=== PATIENT | female | born 1945 | race Caucasian/White ===

== ENCOUNTER 2020-11-11 07:40 | Outpatient (CLI) | payer MEDICARE, BC, SELFPAY ==
--- NOTE | ~2020-11-11 | MR_ITS ---
EXAMINATION: MR thoracic spine wo con DATE: 11/11/2020 09:13 INDICATION: Disease of spinal cord, unspecified. TECHNIQUE: Magnetic resonance imaging (MRI) of the thoracic spine was performed without intravenous c ontrast. Sagittal localizer T1-weighted FSE of the cervical spine was obtained. Thoracic spine sequen leon included sagittal T2-weighted FSE, sagittal T1-weighted FSE, sagittal STIR FSE, and axial T2-weig hted FSE. COMPARISON: Chest 2 views 10/22/2016 FINDINGS: Bone alignment is normal. Vertebral body heights are normal. There is a hemangioma in T9 ve rtebral body. There are endplate osteophytes at most levels. There is mildly decreased disc height at C5-C6, severely decreased disc height at T6-T7, mildly decreased disc height at T8-T9, moderately de creased disc height at T9-T10, and mildly decreased disc height at T10-T11 and T11-T12. At T7-T8, the re is a central protrusion with mild central canal stenosis. At T8-T9, there is a right central extru tomy with mild central canal stenosis. There is multilevel facet joint osteoarthritis, severe on the right at T5-T6. On the right, there is mild neural foraminal stenosis C5-C6, T7-T8, and T11-T12. The spinal cord signal intensity is normal. IMPRESSION: 1. Moderate thoracic spondylosis. Reviewed, dictated and finalized at location A.
--- NOTE | ~2020-11-11 | MR_ITS ---
EXAMINATION: MR brain/brain stem wo con DATE: 11/11/2020 09:12 INDICATION: Disease of spinal cord, unspecified. TECHNIQUE: Magnetic resonance imaging (MRI) of the brain and brainstem was performed without intraven ous contrast. Sequences included sagittal and axial T1-weighted FSE, axial diffusion-weighted FS EPI, axial T2*-weighted GRE, axial T2-weighted FLAIR Propeller, and axial T2-weighted Propeller. Apparent diffusion coefficient (ADC) maps were created. COMPARISON: None. FINDINGS: There is no intracranial hemorrhage, acute infarction, or abnormal intracranial mass lesion . There are scattered areas of nonspecific increased T2-weighted signal intensity in the cerebral whi te matter, which is within normal limits for the patient's age. The ventricles are normal in size. Th e paranasal sinuses are clear. There are likely changes of ocular lens replacement surgeries. The mas toid air cells are normal. . IMPRESSION: 1. Normal brain. Reviewed, dictated and finalized at location A. IMPRESSION: 1. Normal brain.
--- NOTE | ~2020-11-11 | MR_ITS ---
EXAMINATION: MR cervical spine wo con DATE: 11/11/2020 09:13 INDICATION: Disease of spinal cord, unspecified. TECHNIQUE: Magnetic resonance imaging (MRI) of the cervical spine was performed without intravenous c ontrast. Sequences included sagittal T2-weighted FSE, sagittal STIR FSE, sagittal T1-weighted FSE, ax ial MERGE, and axial T2-weighted FSE. COMPARISON: None FINDINGS: There is 2 mm retrolisthesis of C3 on C4. Vertebral body heights are normal. There is sever ant decreased disc height at C3-C4, mildly decreased disc height at C5-C6, and moderately decreased d isc height at C6-C7. The spinal cord signal intensity is normal. The following disc levels are specif ically discussed: C2-C3: The disc does not extend beyond the endplate margin. There is mild bilateral uncovertebral raj nt osteoarthritis. There is severe right and mild left facet joint osteoarthritis. There is mild bila teral neural foraminal stenosis. There is no central canal stenosis. C3-C4: The disc is bulging. There is severe bilateral uncovertebral joint osteoarthritis. There is mi ld bilateral facet joint osteoarthritis. There is moderate bilateral neural foraminal stenosis. There is moderate central canal stenosis with ventral and dorsal indentation of the spinal cord. C4-C5: The disc does not extend beyond the endplate margin. There is no uncovertebral joint osteoarth ritis. There is mild right facet joint osteoarthritis. There is ankylosis of right facet joint with m oderate hypertrophy. There is mild right neural foraminal stenosis. There is no central canal stenosi s. C5-C6: The disc is bulging. There is severe bilateral uncovertebral joint osteoarthritis. There is se carly right and moderate left facet joint osteoarthritis. There is mild right and moderate left neural foraminal stenosis. There is mild central canal stenosis with ventral indentation of the spinal cord . C6-C7: The disc is bulging. There is severe bilateral uncovertebral joint osteoarthritis. There is se carly bilateral facet joint osteoarthritis. There is mild right and moderate left neural foraminal rené nosis. There is mild central canal stenosis. C7-T1: The disc does not extend beyond the endplate margin. There is no uncovertebral joint osteoarth ritis. There is severe bilateral facet joint osteoarthritis. There is mild bilateral neural foraminal stenosis. There is no central canal stenosis. IMPRESSION: 1. Severe cervical spondylosis. Reviewed, dictated and finalized at location A.
== END 2020-11-11 07:41 | disposition home or self-care (01) ==
PROVIDERS: PCP Emergency Medicine; Visit Provider Psychiatry & Neurology Neurology
DX: G95.9 Disease of spinal cord, unspecified (principal); M47.814 Spondylosis without myelopathy or radiculopathy, thoracic region; M47.812 Spondylosis without myelopathy or radiculopathy, cervical region
CPT/HCPCS: 70551; 72141; 72146

== ENCOUNTER 2021-02-06 09:59 | Outpatient (CLI) | payer MEDICARE, BC, SELFPAY ==
--- NOTE | 2021-02-06 12:00 | NEURO_ITS ---
Impression: # Complains of gait dysfunction. # No evidence of neuropathy. # Needle/EMG revealed neurogenic changes in EDB bilaterally. # Clinical correlation recommended; Higher involvement needs to be ruled out. Nerve Conduction Studies Anti Sensory Summary Table Stim Site NR Peak (ms) P-T Amp (?V) Site1 Site2 Delta-P (ms) Dist (cm) Will (m/s) Left Sup Fibular Anti Sensory (Ant Lat Mall) 14 cm 3.5 6.8 14 cm Ant Lat Mall 3.5 16.0 46 Right Sup Fibular Anti Sensory (Ant Lat Mall) 14 cm 3.5 10.3 14 cm Ant Lat Mall 3.5 16.0 46 Left Sural Anti Sensory (Lat Mall) Calf 3.6 13.8 Calf Lat Mall 3.6 16.0 44 Right Sural Anti Sensory (Lat Mall) Calf 3.6 4.7 Calf Lat Mall 3.6 16.0 44 Motor Summary Table Stim Site NR Onset (ms) O-P Amp (mV) Site1 Site2 Delta-0 (ms) Dist (cm) Will (m/s) Left Peroneal Motor (Vastus Med) Ankle 4.3 0.8 Popit Ankle 7.3 35.0 48 Popit 11.6 0.4 Right Peroneal Motor (Vastus Med) Ankle 4.8 1.8 Popit Ankle 7.7 34.0 44 Popit 12.5 1.2 Left Tibial Motor (Abd Serrano Brev) Ankle 4.3 3.0 Knee Ankle 7.5 37.0 49 Knee 11.8 1.4 Right Tibial Motor (Abd Serrano Brev) Ankle 4.1 3.4 Knee Ankle 8.1 39.0 48 Knee 12.2 4.0 F Wave Studies NR F-Lat (ms) L-R F-Lat (ms) Left Peroneal (Mrkrs) (EDB) 51.18 0.82 Right Peroneal (Mrkrs) (EDB) 50.36 0.82 Left Tibial (Mrkrs) (Abd Hallucis) 50.74 0.24 Right Tibial (Mrkrs) (Abd Hallucis) 50.98 0.24 EMG Side Muscle Nerve Root Ins Act Fibs Amp Dur Recrt Comment Right AntTibialis Dp Br Fibular L4-5 Nml Nml Nml Nml Nml Right Gastroc Tibial S1-2 Nml Nml Nml Nml Nml Right Fibularis Long Sup Br Fibular L5-S1 Nml Nml Nml Nml Nml Right Flex Dig Long Tibial L5-S2 Nml Nml Nml Nml Nml Right Ext Dig Brev Dp Br Fibular L5, S1 Nml Nml Nml >12ms Reduced Left AntTibialis Dp Br Fibular L4-5 Nml Nml Nml Nml Nml Left Gastroc Tibial S1-2 Nml Nml Nml Nml Nml Left Fibularis Long Sup Br Fibular L5-S1 Nml Nml Nml Nml Nml Left Flex Dig Long Tibial L5-S2 Nml Nml Nml Nml Nml Left Ext Dig Brev Dp Br Fibular L5, S1 Nml Nml Nml >12ms Reduced MTDD
== END 2021-02-06 10:00 | disposition home or self-care (01) ==
LOC: ANHNEURO 10:00
PROVIDERS: PCP Emergency Medicine; Visit Provider Psychiatry & Neurology Neurology
DX: R26.9 Unspecified abnormalities of gait and mobility (principal)
CPT/HCPCS: 95886; 95910; 95911

== ENCOUNTER 2021-07-30 13:11 | Outpatient (CLI) | payer MEDICARE, BC, SELFPAY ==
--- NOTE | ~2021-07-30 | MR_ITS ---
EXAMINATION: MR lumbar spine wo con DATE: 07/30/2021 13:50 INDICATION: Spinal stenosis, lumbar region without neurogenic location. TECHNIQUE: Magnetic resonance imaging (MRI) of the lumbar spine was performed without intravenous con trast. Sequences included sagittal T2-weighted FSE, sagittal T2-weighted FS FSE, sagittal T1-weighted FSE, and axial T2-weighted FSE. COMPARISON: None FINDINGS: There is 6 degrees levocurvature of lumbar spine. There is 4 mm anterolisthesis of L3 on L4 . There are hemangiomas in T9 and T12 vertebral bodies. Vertebral body heights are normal. There is m oderately decreased disc height at L1-L2, severely decreased disc height at L2-L3, L3-L4, and L4-L5, and mildly decreased disc height at L5-S1. The distal spinal cord signal intensity is normal. The con us medullaris is at L1-L2. 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 The following disc levels are specifically discussed: L1-L2: The disc is bulging and has an annular fissure. There is mild bilateral facet joint osteoarthr itis. There is mild bilateral neural foraminal stenosis. There is mild central canal stenosis. L2-L3: The disc is bulging and has an annular fissure. There is severe bilateral facet joint osteoart hritis. There is mild bilateral neural foraminal stenosis. There is mild central canal stenosis. L3-L4: The disc is bulging and has an annular fissure. There is severe bilateral facet joint osteoart hritis. There is mild bilateral neural foraminal stenosis. There is mild central canal stenosis. L4-L5: The disc is bulging and has an annular fissure. There is severe bilateral facet joint osteoart hritis. There is mild bilateral neural foraminal stenosis. There is mild central canal stenosis. L5-S1: The disc does not extend beyond the endplate margin. There is severe bilateral facet joint ost eoarthritis. There is mild bilateral neural foraminal stenosis. There is no central canal stenosis. IMPRESSION: 1. Severe lumbar spondylosis. Reviewed, dictated and finalized at location A.
== END 2021-07-30 13:12 | disposition home or self-care (01) ==
LOC: ANHIMG 13:14
PROVIDERS: PCP Emergency Medicine; Visit Provider Psychiatry & Neurology Neurology
DX: M48.061 Spinal stenosis, lumbar region without neurogenic claudication (principal); M47.896 Other spondylosis, lumbar region
CPT/HCPCS: 72148

== ENCOUNTER 2023-11-26 09:27 | Outpatient (CLI) | payer MEDICARE, BC, SELFPAY ==
--- NOTE | ~2023-11-26 | MR_ITS ---
MR cervical spine wo con Ordering provider: Ran Hopson MD History: 77 years Female with . R26.9 - Unspecified abnormalities of gait and mobility . Comparison: None. Technique: MRI cervical spine without contrast. FINDINGS: CERVICAL SPINAL CORD/CRANIAL CERVICAL JUNCTION: Normal in signal and caliber. CERVICAL VERTEBRAL BODIES: Normal height and alignment. Normal marrow signal. DISK SPACES: Narrowing of the disc C3-C4, C4-C5, C5-C6 and C6-C7. Fusion in the right facet joint dis ease At the level of C4-C5 C2-C3: No stenosis. C3-C4: Severe spinal canal stenosis secondary to broad based disc bulge. Narrowing of the foramina w ith root compression C4-C5: No stenosis. C5-C6: Mild spinal canal stenosis secondary to broad based disc bulge. Bilateral narrowing of the fo ramina with root compression. C6-C7: No stenosis. Diffuse disc bulge narrowing of the left intervertebral foramen with root william tomy C7-T1: No stenosis. VISUALIZED PARASPINOUS SOFT TISSUES: Normal. IMPRESSION: 1. No acute osseous abnormality. 2. Multilevel degenerative disc disease with variable degrees of spinal canal stenosis, intervertebr al foraminal narrowing and the root compression. Reviewed, dictated and finalized at location A. IMPRESSION: 1. No acute osseous abnormality. 2. Multilevel degenerative disc disease with variable degrees of spinal canal stenosis, intervertebral foraminal narrowing and the root compression.
== END 2023-11-26 09:28 | disposition home or self-care (01) ==
LOC: ANHIMG 09:28
PROVIDERS: PCP Family Medicine; Visit Provider Orthopaedic Surgery
DX: R26.9 Unspecified abnormalities of gait and mobility (principal); M50.30 Other cervical disc degeneration, unspecified cervical region
CPT/HCPCS: 72141

== ENCOUNTER 2024-03-05 09:40 | Outpatient (CLI) | payer MEDICARE, BC, SELFPAY ==
--- NOTE | ~2024-03-05 | MR_ITS ---
MRI of the lumbar spine Clinical History: Spinal stenosis Technique: Axial T2-weighted images, and sagittal T1-weighted, T2-weighted, and T2 fat-sat images wer e acquired. Findings: There is 4 mm retrolisthesis of L1 over L2. There is minimal grade 1 anterolisthesis of L3 over L4. No suspicious bone marrow signal abnormality seen. No fracture seen. At L1-L2, there is advanced degenerative disc narrowing, with type I Modic changes about the disc spa ce. There is disc bulge and facet arthropathy resulting in moderate to advanced spinal canal stenosis focally at this level. There is severe bilateral neural foraminal narrowing. At L2-L3, there is advanced degenerative disc narrowing with severe facet arthropathy. There is minim al disc bulge. There is minimal central canal stenosis. There is severe right neural foraminal narrow ing, and moderate to advanced left neural foraminal narrowing. At L3-L4, there is severe degenerative disc narrowing. There is mild diffuse disc bulge with severe f acet arthropathy. There is mild central canal stenosis. There is mild to moderate right neural forami nal narrowing. There is minimal left neural foraminal narrowing. At L4-L5, there is severe degenerative disc narrowing. There is mild disc bulge with severe facet art hropathy. No central canal stenosis. There is severe right neural foraminal narrowing, and moderate t o advanced left neural foraminal narrowing. At L5-S1, there is minimal disc bulge with severe facet arthropathy. No central canal stenosis. There is severe left neural foraminal narrowing. Right neural foramen preserved. Paravertebral soft tissues are unremarkable. Impression: Severe degenerative spondylosis, as detailed above. Reviewed, dictated and finalized at location . Impression: Severe degenerative spondylosis, as detailed above.
== END 2024-03-05 09:41 | disposition home or self-care (01) ==
PROVIDERS: PCP Family Medicine; Visit Provider Neurological Surgery
DX: M48.061 Spinal stenosis, lumbar region without neurogenic claudication (principal); M47.896 Other spondylosis, lumbar region
CPT/HCPCS: 72148

== ENCOUNTER 2024-04-09 10:24 | Outpatient (CLI) | payer MEDICARE, BC, SELFPAY ==
--- NOTE | 2024-04-09 10:30 | ECG_ITS ---
Test Date: 2024-04-09 10:56:04 Measurements Intervals [place] Rate: 59 P: 6 [place]: 176 QRS: -5 QRSD: 82 T: 12 QT: 362 QTc: 360 Interpretive Statements SINUS BRADYCARDIA LOW QRS VOLTAGE IN PRECORDIAL LEADS [QRS DEFLECTION < 1.0 mV IN CHEST LEADS] POSSIBLE ANTERIOR MYOCARDIAL INFARCTION [30 ms Q WAVE IN V3/V4, OR R < 0.2 mV IN V4], PROBABLY OLD No previous ECG available for comparison Electronically Signed On 04-09-2024 12:58:07 SENIOR PRODUCT DEVELOPMENT MANAGER by Melanie Fink M.D.
[2024-04-09 11:56] LABS: Hemoglobin 10.8 g/dL (12.0-15.0); Mean Corpuscular Hemoglobin 32.1 pg (26-34); Mean Corpuscular Volume 107.1 fl (80-100); Mean Platelet Volume 10.7 fl (7.4-10.4); Platelet Count Result 236 k/mm3 (150-375); Red Blood Count 3.36 M/mm3 (4.2-5.4); Red Cell Distribution Width 13.1 % (11.5-14.5); White Blood Count 6.2 K/mm3 (4.5-10.0)
[2024-04-09 12:11] LABS: Add Urine Microscopic? YES; Appearance Urine Turbid (Clear); Bacteria Urine None Seen /hpf; Bilirubin Urine 1+ (Negative); Blood Urine Negative (Negative); Calcium Oxalate Crystals Urine Present /hpf; Color Urine Dark Yellow (Yellow); Glucose Urine UA Negative (Negative); Ketones Urine Trace mg/dL (Negative); Leukocyte Esterase Ur 2+ LEU/UL (Negative); Need Manual Microscopic Reviewed; Nitrate Urine Negative (Negative); Protein Urine Trace mg/dL (Negative); Specific Grav Ur 1.037 (1.001-1.035); Squamous Epithelial Cell Urine Moderate /hpf (Few); WBC Urine >100 /hpf (0-3)
[2024-04-09 12:15] LABS: Anion Gap 2 mmol/L (4-12); Blood Urea Nitrogen 20 mg/dL (7-17); Calcium 10.1 mg/dL (8.4-10.2); Carbon Dioxide 32 mmol/L (22-30); Chloride 106 mmol/L (98-107); Estimated Glomerular Filt Rate 43; Glucose 89 mg/dL (65-110); Potassium 4.6 mmol/L (3.4-5.0); Sodium 140 mmol/L (137-145)
[2024-04-09 12:25] LABS: Prothrombin Time 13.9 Seconds (11.1-14.7)
[2024-04-09 12:26] LABS: Partial Thromboplastin Time 25.9 Seconds (22.3-36.8)
== END 2024-04-09 10:25 | disposition home or self-care (01) ==
PROVIDERS: PCP Family Medicine; Visit Provider Neurological Surgery
DX: M48.02 Spinal stenosis, cervical region (principal); I10 Essential (primary) hypertension; Z01.818 Encounter for other preprocedural examination
CPT/HCPCS: 36415; 80048; 81001; 85027; 85610; 85730; 86850; 86900; 86901; 87086; 93005

== ENCOUNTER 2024-08-02 09:00 | Outpatient (CLI) | payer MEDICARE, BC, SELFPAY ==
--- OUTSIDE RECORDS SUMMARY | 2024-08-02 09:45 | XMS_ITS | Referral Summary ---
Author Organization [facility] [place] [facility] Address [address] [place] [address] Care Team Providers Care Stitch Separator Name Role Phone Pablo Vaughn MD Primary Care Provider + Allergies Active Allergy Reactions Criticality Noted Date Comments Codeine Lisinopril Cough Low 10/14/2012 Sulfanilamide Medications multivitamin tablet tablet take 1 tablet by oral route every day with food 0 2 Active calcium carbonate-vitam in D3 (CALCIUM 600 + D,3,) 1500 mg (600 mg elemental) -400 units per tablet take one by oral route twice every day [address] (NexIUM) 40 mg capsule take 1 capsule (40MG) by oral route 2 times every day 0 2 Active ascorbic acid (vitamin C with lora hips) 500 mg tablet take one by oral route one time every day 0 2 Active pyridoxine (vitamin B-6) 100 mg tablet take one by oral route one time every day 0 2 Active escitalopram (LEXAPRO) 10 mg tablet take 1 tablet (10MG) by oral route every day 0 2 Active traMADol (ULTRAM) 50 mg tablet take 1 tablet (50MG) by oral route every 4 hours as needed 0 3 Active cholecalciferol (VITAMIN D3) 2,000 unit capsule take 1 a day 0 0 5 Active traZODone (DESYREL) 50 mg tablet take 1 tablet by oral route every day at bedtime 0 0 5 Active glucosamine-cho ndroitin (OSTEO BI-FLEX) 250-200 mg tablet take BID 0 0 5 Active omeprazole (PriLOSEC) 20 mg capsule take 1 capsule by oral route BID 0 0 5 Active levothyroxine (SYNTHROID) 50 mcg tablet TAKE 1 TABLET EVERY FRIDAY 10 3 3 Active Additional Information Patient not taking.Reported on 02/25/2020 levothyroxine (SYNTHROID) 88 mcg tablet TAKE 1 TABLET DAILY FRIDAY THROUGH FRIDAY. 90 2 0 Active primidone (MYSOLINE) 50 mg tablet Take 2 tablets (100 mg total) by mouth 2 (two) times a day 120 tablet 1 0 Active cranberry fruit extract (cranberry extract) 250 mg capsule Take 2 tablets by mouth 8 Active apixaban (ELIQUIS) 5 mg tablet Take 5 mg by mouth 0 Active biotin 5 mg tablet Take 1 tablet by mouth 2 (two) times a day 8 Active buPROPion (WELLBUTRIN) 75 mg tablet Take 75 mg by mouth 0 Active cyanocobalamin (Vitamin B-12) 1,000 mcg tablet Take 1 tablet by mouth daily 8 Active cycloSPORINE (Restasis) 0.05 % ophthalmic emulsion Administer 1 drop into affected eye(s) 7 Active Active Problems Problem Noted Date Diagnosed Date Hypothyroidism 08/03/2013 Overview (08/08/2016): HYPOTHYROIDISM NOS Vitamin D deficiency 05/12/2012 Overview (08/08/2016): Vitamin d deficiency Social History Tobacco Use Types Packs/Day Years Used Date Smoking Tobacco: Former Alcohol Use Standard Drinks/Week Comments No 0 (1 standard drink = 0.6 oz pur e alcohol) Comments Unknown Sex and Gender Information Value Date Recorded Sex Assigned at Not on file Legal Sex Female 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[employer] Gender Identity Not on file Sexual Orientation Not on file Last Filed Vital Signs Vital Sign Reading Time Taken Comments Blood Pressure 161/80 02/25/2020 9:24 AM CDT Pulse 69 02/25/2020 9:24 AM CDT Temperature 35.9 C (96.6 F) 02/25/2020 9:24 AM CDT Respiratory Rate - - Oxygen Saturation - - Inhaled Oxygen Concentration - - Weight 69.1 kg (152 lb 6.4 oz) 02/25/2020 9:24 A M CDT Height 152.4 cm (5') 02/25/2020 9:24 AM CDT Body Mass Index 29.76 02/25/2020 9:24 AM CDT Plan of Treatment Not on file Insurance [place] [employer] [place] [employer] [place] Care Teams Stitch Separator Relationship Specialty Start Date End Date Pablo Vaughn MD PCP - General 08/09/14
--- OUTSIDE RECORDS SUMMARY | 2024-08-02 09:45 | XMS_ITS | Continuity of Care Document ---
Author Organization [facility] Address [address] [place] [address] Phone Care Team Providers Care Manager Workers Compensation Name Role Phone Migel Franklin MD Unavailable Unavailable Advance Directives Directive Yes / No Effective Date File Name No Information Encounters Encounter Description Practice Location Reason(s) For Visit Diagnoses Date Provider Providers Copied on Encounter [facility], [address], [place], [place], [id number], tel:[phone] [facility] No Information Rigoberto Lainez. [address] , [place], [place], [address], [place]. tel:[phone] Referring Provider: Yohannes Rivero DO, [address], [place], [address]. tel:[phone] Family History Family Member Type Diagnosis Age At Onset No Information Payers Payer name Insurance type Covered alliance party ID Authoriza tion(s) MEDICARE [id number] [employer] 3 CI [id number] 2 Social History Type Description Quantity Date [...]
--- OUTSIDE RECORDS SUMMARY | 2024-08-02 09:45 | XMS_ITS | Clinical Summary ---
Author Organization [facility] Address [address], [facility] [address] [place] [address] Phone Care Team Providers Care Web Designer Name Role Phone Pablo Vaughn MD Primary Care Provider [phone] Gerhard Colin MD Unavailable [phone] Allergies Active Allergy Reactions Criticality Noted Date Comments Codeine Itching,Nausea Low 01/08/2018 Lisinopril Other (see Comments) Low 10/14/2012 Sulfa Antibiotics Other (see Comments) 05/11/19 21 Sulfacetamide Itching Low 01/16/2018 Sulfanilamide Other (see Comments) 02/24/2020 Medications Biotin 5000 MCG TabletIndications :Single subsegmental pulmonary embolism without acute cor pulmonale (HCC),Vitamin deficiency,Anemia , unspecified type,Hypercoagula ble state (HCC) Take 1 Tab by mouth. 8 Active calcium citrate-vitamin D (CITRACAL+D) 315-200 MG-UNIT TabletIndications :Single subsegmental pulmonary embolism without acute cor pulmonale (HCC),Vitamin deficiency,Anemia , unspecified type,Hypercoagula ble state (HCC) Take 1 Tab by mouth. Active Cholecalciferol (Vitamin D) 2000 UNIT TabletIndications :Single subsegmental pulmonary embolism without acute cor pulmonale (HCC),Vitamin deficiency,Anemia , unspecified type,Hypercoagula ble state (HCC) Take 1 Tab by mouth. 8 Active Cranberry Extract 250 MG TabletIndications :Single subsegmental pulmonary embolism without acute cor pulmonale (HCC),Vitamin deficiency,Anemia , unspecified type,Hypercoagula ble state (HCC) Take 2 Tabs by mouth. 8 Active cycloSPORINE (RESTASIS) 0.05 % EmulsionIndicatio ns:Single subsegmental pulmonary embolism without acute cor pulmonale (HCC),Vitamin deficiency,Anemia , unspecified type,Hypercoagula ble state (HCC) Place 1 Drop in affected eye(s). 7 Active ascorbic acid (ASCORBIC ACID) 500 MG TabletIndications :Single subsegmental pulmonary embolism without acute cor pulmonale (HCC),Vitamin deficiency,Anemia , unspecified type,Hypercoagula ble state (HCC) Take 500 mg by mouth. 2 Active ibuprofen (MOTRIN) 600 MG TabletIndications :Single subsegmental pulmonary embolism without acute cor pulmonale (HCC),Vitamin deficiency,Anemia , unspecified type,Hypercoagula ble state (HCC) TK 1 T PO EVERY 8 HOURS NEEDED FOR PAIN. 0 Active metoprolol tartrate (LOPRESSOR) 25 MG TabletIndications :Single subsegmental pulmonary embolism without acute cor pulmonale (HCC),Vitamin deficiency,Anemia , unspecified type,Hypercoagula ble state (HCC) Take 12.5 mg by mouth. 0 Active Multiple Vitamins TabletIndications :Single subsegmental pulmonary embolism without acute cor pulmonale (HCC),Vitamin deficiency,Anemia , unspecified type,Hypercoagula ble state (HCC) Take 1 Tab by mouth. 8 Active omeprazole (PriLOSEC) 20 MG CAPSULE DELAYED RELEASEIndication s:Single subsegmental pulmonary embolism without acute cor pulmonale (HCC),Vitamin deficiency,Anemia , unspecified type,Hypercoagula ble state (HCC) Take 20 mg by mouth. 5 Active primidone (MYSOLINE) 50 MG TabletIndications :Single subsegmental pulmonary embolism without acute cor pulmonale (HCC),Vitamin deficiency,Anemia , unspecified type,Hypercoagula ble state (HCC) Take 2 Tablets by mouth 2 times daily. 8 Active traMADol (ULTRAM) 50 MG Tablet tramadol 50 mg tablet Take 1 tablet every 6 hours by oral route. 0 Active Synthroid 100 MCG Tablet 1 Active buPROPion (WELLBUTRIN) 150 MG XL tablet 1 Active celecoxib (CeleBREX) 200 MG Capsule 1 Active escitalopram (LEXAPRO) 20 MG Tablet Take 1 Tablet by mouth daily. 1 Active traZODone (DESYREL) 100 MG Tablet TAKE 1 AND 1/2 TABLETS BY MOUTH NIGHTLY AT BEDTIME 1 Active Active Problems Problem Noted Date Diagnosed Date Joint replaced by other means 05/30/2021 Osteoarthritis of knee 05/30/2021 Idiopathic peripheral neuropathy 10/20/2020 Primary localized osteoarthritis of pelvic regio n and thigh 07/27/2020 History of total hip arthroplasty, left 07/28/19 21 Acquired trigger finger 07/27/2020 Carpal tunnel syndrome 07/27/2020 Cervical spondylosis without myelopathy 07/28/19 21 Degeneration of cervical intervertebral disc Iron deficiency anemia 03/16/2020 Dependent edema 01/29/2020 History of pulmonary embolism 12/20/2019 Overview (05/30/2021): Occurring while hospitalized for small bowel obstruction. Completed 3 months of anticoagulation. Negative hypercoagulability work-up. Primary insomnia 11/03/2019 History of gastric bypass 06/19/2018 Essential tremor 02/13/2017 Overview (05/30/2021): Transitioned From: Resting tremor Last Assessment & Plan: Stable, continues on primidone as prescribed by Dr. Ta, with regular follow- up with him. Improved control of symptoms. No treatment change. Gastroesophageal reflux disease with esophagitis 11/07/2015 Overview (05/30/2021): Last Assessment & Plan: Well-controlled on current dosing of omeprazole. No treatment change. Check vitamin D and B12/folate levels with next blood draw. Pseudophakia of both eyes 05/05/2014 Acquired hypothyroidism 06/24/2012 Overview (05/30/2021): Last Assessment & Plan: Patient with excess intake of levothyroxine, due to a misunderstanding of her dosing. Reevaluate with repeat TSH at this time. Patient instructed to take 50 mcg of thyroxine on Sundays and Wednesdays without additional medication. She is to take 88 mcg all other days. Patient voiced understanding and agreement with plan. HYPOTHYROIDISM NOS Immunizations Immunization Administration Dates Next Due Covid-19, Mrna, Lnp-s, Pf, 3 0 Mcg/0.3 Ml Dose ([facility]) 07/22/2020,07/01/2020 Influenza Vaccine 01/17/2020 Influenza Vaccine,unspecifie d Formulation 01/17/2020 Influenza, High-dose, Quadrivalent 01/26,01/21/2018,02/08/2017,2015,01/23/2015,03/01/2013 Influenza, Quadrivalent, Adjuvanted 01/17/2020,1 Influenza, Seasonal, Injecta ble, Undefined 01/25/2014 Influenza, Trivalent, Adjuvanted, PF 02/02/2019 Influenza, high-dose, trivalent, PF 01/03,02/08/2017,02/11/2016,2014,03/01/2013 Pneumococcal Vaccine - 13 Valent 04/22/2018 Pneumococcal Vaccine Adult - 23 Valent 02/08/2017 Zoster Vaccine, live 04/24/2012 Family History Medical History Relation Name Comments Chronic Obstructive Pulmonary Disease Father Hypertension Mother Relation Name Status Comments Father Mother Social History Tobacco Use Types Packs/Day Years Used Date Smoking Tobacco: Former Smokeless Tobacco: Never Alcohol Use Standard Drinks/Week Comments Not Currently 0 (1 standard drink = 0.6 oz pur e alcohol) PHQ-2 Answer Date Recorded Total Score - Questions 1-9 1 11/03 Sexually Active Control Partners Comments Not Currently Comments No Sex and Gender Information Value Date Recorded Sex Assigned at Not on file Legal Sex Female 7:59 AM CDT Gender Identity Not on file Sexual Orientation Not on file Last Filed Vital Signs Vital Sign Reading Time Taken Comments Blood Pressure 150/82 11/30/2020 9:36 AM CDT Pulse 63 11/30/2020 9:36 AM CDT Temperature 36.6 C (97.8 F) 11/30/2020 9:36 AM CDT Respiratory Rate 18 11/30/2020 9:36 AM CDT Oxygen Saturation 96% 11/30/2020 9:36 AM CDT Inhaled Oxygen Concentration - - Weight 71.5 kg (157 lb 9.6 oz) 11/30/2020 9:36 A M CDT Height 152.4 cm (5') 11/30/2020 9:36 AM CDT Body Mass Index 30.78 11/30/2020 9:36 AM CDT Plan of Treatment Health Maintenance Due Date Last Done Comments Hepatitis C Virus (HCV) Screening 1945 TdaP Immunization 1945 Zoster Immunization (2 of 3) 06/19/2012 04/24/2012 Respiratory Syncytial Virus (RSV) Immunization (Adult) (1 - 1-dose 75+ series) 2020 Influenza Immunization (#1) 01/04/202401/04, 01/17/2020, 01/17/2020, Additional history exists SARS-COV-2 Immunization ( season) 2024 07/22/2020, 07/01/2020 Pneumococcal Immunization (50+ years) Completed 04/22/2018, 02/08/2017 Pneumococcal Immunization Combined Discontinued 04/22/2018, 02/08/2017 Hepatitis B Immunization Aged Out No longer eligible based on patient's age to complete this topic Meningococcal Immunization (ACWY) Aged Out No longer eligible based on patient's age to complete this topic Rotavirus Immunization Aged Out No lo nger eligible based on patient's age to complete this topic Insurance MEDICARE [facility] Care Teams Web Designer Relationship Specialty [place] [id number] [address] PCP - General General Surgery 02/01/20 Gerhard Colin MD [address] [place] [phone] Consulting Physician Oncology 04/12/20
--- OUTSIDE RECORDS SUMMARY | 2024-08-02 09:45 | XMS_ITS | Clinical Summary ---
Author Organization [facility] Address [address] [place] [address] Care Team Providers Care Supervisor Cytogenetic Laboratory Name Role Phone Pablo Vaughn MD Primary [...] deficiency 05/12/2012 Overview (08/08/2016): Vitamin d deficiency Surgical History Surgery Date Site/Laterality Comments HIP ARTHROPLASTY Hip replacement Medical History Medical History Date Comments Hx Other Medical Gastric bypass surgery Inflammatory disorder of musculoskeletal system Inflammatory arthritis Hx Other Medical fx wrist right 2010 Anemia anemia Family History Medical History Relation Name Comments Cancer Other 1 Family history of malignant neoplasm - (Added by TW Conv) Diabetes Other 1 Family history of diabetes mellitus - (Added by TW Conv) Heart disease Other 1 Family history of cardiac disorder - (Added by TW Conv) Stroke Other 1 Family history of cerebrovascular accident (CVA) - (Added by TW Conv) Thyroid disease Other 1 Family histo ry of Thyroid disorder; Thyroid disease Other 2 Family histo ry of Thyroid disease; Relation Name Status Comments Other 1 Other 2 Social History Tobacco Use Types Packs/Day Years Used Date Smoking Tobacco: Former Alcohol Use Standard Drinks/Week Comments No 0 (1 standard drink = 0.6 oz pur e alcohol) Comments Unknown Sex and Gender Information Value Date Recorded Sex Assigned at Not on file Legal Sex Female 1:10 AM SOFTBALL WINDER Gender Identity Not on file Sexual Orientation Not on file Obstetrics History Last Filed Vital Signs Vital Sign Reading [...] of Treatment Not on file Insurance MEDICARE [facility] [employer] [place] Care Teams Supervisor Cytogenetic Laboratory Relationship Specialty Start Date End Date Pablo Vaughn MD PCP - General 08/09/14
[2024-08-02 10:45] LABS: Hematocrit 38.7 % (37.0-47.0); Hemoglobin 11.9 g/dL (12.0-15.0); Mean Corpuscular HGB Conc 30.7 g/dl (32-36); Mean Corpuscular Hemoglobin 32.6 pg (26-34); Mean Platelet Volume 10.3 fl (7.4-10.4); Platelet Count Result 188 k/mm3 (150-375); Red Blood Count 3.65 M/mm3 (4.2-5.4); Red Cell Distribution Width 11.8 % (11.5-14.5)
[2024-08-02 10:49] LABS: Add Urine Microscopic? YES; Appearance Urine Clear (Clear); Bacteria Urine None Seen /hpf; Bilirubin Urine Negative (Negative); Blood Urine Negative (Negative); Color Urine Yellow (Yellow); Glucose Urine UA Negative (Negative); Ketones Urine Negative (Negative); Leukocyte Esterase Ur Trace LEU/UL (Negative); Nitrate Urine Negative (Negative); Non Pathogenic Casts 0-2; Protein Urine Negative (Negative); RBC Urine 0-2 /hpf (0-2); Specific Grav Ur 1.018 (1.001-1.035); Squamous Epithelial Cell Urine None Seen /hpf (Few); Urobilinogen Urine 0.2 mg/dL (<2.0)
[2024-08-02 11:03] LABS: Anion Gap 6 mmol/L (4-12); Blood Urea Nitrogen 20 mg/dL (7-17); Calcium 10.3 mg/dL (8.4-10.2); Carbon Dioxide 30 mmol/L (22-30); Chloride 105 mmol/L (98-107); Estimated Glomerular Filt Rate 50; Glucose 92 mg/dL (65-110); Potassium 4.7 mmol/L (3.4-5.0); Sodium 141 mmol/L (137-145)
[2024-08-02 11:04] LABS: Prothrombin Time 13.5 Seconds (11.1-14.7)
[2024-08-02 11:05] LABS: Partial Thromboplastin Time 25.7 Seconds (22.3-36.8)
== END 2024-08-02 09:01 | disposition home or self-care (01) ==
LOC: ANHSURGERY 09:07
PROVIDERS: PCP Family Medicine; Visit Provider Neurological Surgery
DX: M48.02 Spinal stenosis, cervical region (principal); Z01.818 Encounter for other preprocedural examination
CPT/HCPCS: 36415; 80048; 81001; 85027; 85610; 85730; 86850; 86900; 86901; 87086

== ENCOUNTER 2024-08-12 01:45 | Day surgery (SDC) | payer MEDICARE, BC, SELFPAY ==
[2024-08-02 09:32] VITALS: BP 146/77; PULSE 55; RESP 16; TEMP 36.6; O2SAT 98; BMI 33.3
--- NOTE | 2024-08-02 09:53 | PC.NURSE ---
Report to the Outpatient Waiting Room, entrance under the green pavilion located off [facility], at time ___9:00AM____ on date ___08/12/24____. Planned Procedure Time: ___11:00AM .? Time changes happen often and if your time is changed the preop area will call you the afternoon before. - You and your visitor will be asked to self-screen and do not enter if you have any COVID symptoms. Please call surgeon if you need to reschedule. - A mask is optional within the hospital at this time. Patients may have clear liquids (water, carbonated beverages, clear teas, apple juice) until 3 hours prior to surgery (8:00AM) with a maximum of 20 ounces. - No food from midnight until time of surgery and no smoking, or chewing tobacco (or any form of nicotine). No chewing gum, candy or mints. Take only the following medications with a SIP of water on the morning of surgery: __BUPROPION, ESCITALOPRAM, LEVOTHYROXINE, PROPRANOLOL. TRAMADOL NEEDED FOR PAIN. DO NOT STOP ANY OF YOUR OTHER PRESCRIPTION MEDICATIONS PRIOR TO SURGERY EXCEPT THE FOLLOWING Hold all vitamins and supplements for 3 days per anesthesiologist.- LAST DOSE 08/08/24 Please no make-up, nail khmer, hairspray, perfume, deodorant, or body powder the day of surgery.? No jewelry (including any body piercings) or valuables the day of surgery, leave them at home.? Please take a shower or bath the night before, or the morning of, surgery with an antibacterial soap.? Wear comfortable, loose fitting clothing.? - Jewelry must be removed prior to entering the operating room.? Rings and piercings that are not removed may be cut off. - The hospital will not accept responsibility for valuables.? - Please leave all valuables, including medications, at home the day of surgery. If you are going home after surgery, a licensed driver license technician must drive you home.? - NO public transportation without another adult if you receive anesthesia. - We recommend that an adult stay with you for 24 hours following discharge. - We also recommend that you do not drive, make important decision, drink alcoholic beverages, or take any drugs that were not prescribed by your health care provider for at least 24 hours after your discharge time. Follow any additional instructions given to you from your surgeon. Telephone instructions given to ____PATIENT and asked if any additional questions and then verbalized understanding. Patient advised to call surgeon office or pre surgery nurse liaison [phone] if any additional questions.
[2024-08-12] VITALS (16 sets, daily range): BP systolic 115–145; BP diastolic 52–77; PULSE 57–76; RESP 11–23; TEMP 35.8–36.7; O2SAT 90–100; BMI 32.9
--- NOTE | ~2024-08-12 | CT_ITS ---
EXAMINATION: CT brain wo con DATE: 08/12/2024 15:40 INDICATION: Right-sided facial droop TECHNIQUE: Computed tomography (CT) of the head was performed without intravenous contrast. Sagittal and coronal reconstructions were performed. The mA was adjusted according to patient size. Iterative reconstruction technique was employed. The dose-length product was 681.00 mGy-cm. COMPARISON: Brain MR dated 11/11/2020 FINDINGS: No acute intracranial hemorrhage, acute infarction or abnormal extra axial fluid collection. There is mild scattered white matter hypoattenuation consistent with chronic small vessel ischemic disease. Ventricles are normal and symmetric. No mass/mass effect. Changes of bilateral intraocular lens repla cement. The orbits, paranasal sinuses and mastoid air cells are normal. IMPRESSION: 1. Normal aging brain. No acute intracranial process. Reviewed, dictated and finalized at location B.
--- NOTE | ~2024-08-12 | MR_ITS ---
EXAMINATION: MR brain/brain stem wo/w con DATE: 08/13/2024 13:15 INDICATION: Right facial droop TECHNIQUE: Magnetic resonance imaging (MRI) of the brain and brainstem was performed without and with 15 mL ProHance intravenous contrast. Sequences included sagittal and axial T1-weighted SE, axial dif fusion-weighted FS SE, axial 3D SWAN, axial T2-weighted FLAIR, and axial T2-weighted FSE. Postcontras t axial and coronal T1-weighted SE was obtained. Apparent diffusion coefficient (ADC) maps were creat ed. COMPARISON: Head CT and CT angiogram dated 08/12/2024 and brain MR dated 11/11/2020 FINDINGS: There are no areas of restricted diffusion to suggest acute infarction. No intracranial hemorrhage or abnormal intracranial mass lesion. There are scattered areas of nonspecific increased T2-weighted si gnal intensity in the cerebral white matter, predominantly involving the deep and periventricular whi te matter which is within normal limits for age. There are no intraparenchymal signal abnormalities s een on the other pulse sequences. The ventricles are symmetric and normal in size. There are no abnor mal extra-axial fluid collections. Flow voids are seen in the cerebral arteries on the T2-weighted se quences consistent with their expected patency. Changes of bilateral intraocular lens replacement. V isualized orbits and soft tissues are unremarkable. There are no areas of abnormal enhancement on the post contrast images. IMPRESSION: 1. Normal aging brain. No acute intracranial process. Reviewed, dictated and finalized at location A.
--- NOTE | ~2024-08-12 | CT_ITS ---
EXAMINATION: CTA BRAIN/CAROTID DATE: 08/12/2024 15:50 INDICATION: Right facial droop TECHNIQUE: Computed tomographic angiography (CTA) of the head and neck was performed with 100 mL Omni paque-350 intravenous contrast. Multiplanar reconstructions and maximum intensity projection 3D-recon structions of the carotid arteries and of the intracranial arteries were created by the technologist on a separate workstation. Automated exposure control and iterative reconstruction technique were emp loyed.The dose-length product was 929.54 mGy-cm. COMPARISON: None. FINDINGS: Carotid arteries: Visualized aortic arch and great vessels arising from the arch are normal in caliber with no evident atherosclerotic plaque or dissection. Left vertebral artery is dominant. There is 0% stenosis of the right and left carotid bulbs relative to normal distal artery lumen diameter (NASCET criteria). Mild dependent atelectasis in the visualized upper lungs. Tracheobronchial malacia with significant AP britt rowing of the trachea and mainstem bronchi. Intracranial arteries Left vertebral artery is dominant. There is no hemodynamically significant stenosis in the vertebral, basilar and internal carotid arteries. There are no aneurysms identified. Both A1 and P1 segments a re patent. Cerebral arterial arborization appears symmetric. No abnormally enhancing brain lesions. IMPRESSION: 1. 0% stenosis of the right and left carotid bulbs relative to normal distal artery lumen diameter (N ASCET criteria). 2. Unremarkable cerebral CT angiogram with no hemodynamically significant stenosis, aneurysm or throm bosis. Reviewed, dictated and finalized at location B. IMPRESSION: 1. 0% stenosis of the right and left carotid bulbs relative to normal distal ar varsha lumen diameter (NASCET criteria). 2. Unremarkable cerebral CT angiogram with no hemodynamically significant steno sis, aneurysm or thrombosis.
--- NOTE | ~2024-08-12 | XR_ITS ---
XR fluoroscopy no charge Indication: Cervical discectomy with fusion C3-4 TECHNIQUE: Fluoroscopy used during Cervical discectomy with fusion C3-4 performed by [Mati heck MD] on 08/12/2024. 5 seconds of fluoroscopy with one fluoroscopic images captured. FINDINGS: Correlate with procedure note. IMPRESSION: Fluoroscopy used during Cervical discectomy with fusion C3-4. Reviewed, dictated and finalized at location A.
--- OUTSIDE RECORDS SUMMARY | 2024-08-12 01:48 | XMS_ITS | Encounter Summary ---
Author Organization [facility] Address [facility] [place] [address] Care Team Providers Care Gopherman Name Role Phone Pablo aVughn MD Primary Care Provider [phone] Stanlye Mello MD Unavailable [phone] Gilbert Pablo MD Unavailable Zeyad Lozano MD Unavailable [phone] Pedro Barnhart MD Unavailable [phone] Eric Clark MD Primary Care Provider [phone] Encounter Details Date Type Department Care Team (Late st Contact Info) Description 11/29/[address] [facility] [address] [place], [place] [id number] Pedro Barnhart MD [address] [address] Social History Tobacco Use Types Packs/Day Years Used Date Smoking Tobacco: Former Cigarettes Q uit: 1980 Smokeless Tobacco: Never Alcohol Use Standard Drinks/Week Comments Yes 0 (1 standard drink = 0.6 oz pur e alcohol) little PHQ-2 Answer Date Recorded PHQ-2 Score 2 11/17/2019 Comments No Sex and Gender Information Value Date Recorded Sex Assigned at Female 03/25/2018 2:13 PM HAIR COLORIST Legal Sex Female 10:53 PM CDT Gender Identity Female 03/25/2018 2:13 PM HAIR COLORIST Sexual Orientation Straight 03/25/2018 2: 13 PM HAIR COLORIST Occupation Industry Job Start Date Job End Date Not on file Not on file Not on file Not on file COVID-19 Exposure Response Date Recorded In the last month, have you been in contact with someone who was confirmed or suspected to have Coronavirus / COVID-19? No / Unsure 11/29/2019 11:32 AM CDT documented as of this encounter Plan of Treatment Not on file documented as of this encounter Visit Diagnoses Not on filedocumented in this encounter Additional Health Concerns Infection Onset Date Last Indicated Resolved Time COVID-19 Rule Out 11/29/2019 11/29/2019 11/29/2019 4:09 PM CDT COVID-19 Rule Out 12/21/2019 12/21/2019 12/21/2019 11:45 AM CDT documented as of this encounter Care Teams Gopherman Relationship Specialty Start Date End Date Pablo Vaughn MD PCP - General INTERNAL MEDICINE 10/03/17 07/18/21 [place] [address] [place] [address] PCP - General FAMILY PRACTICE 07/19/21 Stanley Mello MD [facility]. [address] [address] [place] Engine Mechanic CARDIOVASCULAR DISEASE 10/03/17 Gilbert Pablo MD [address] [facility] [phone] [place] [address] Consulting Physician SURGERY 03/22/21 Zeyad Lozano MD [address] [address] Consulting Physician NEUROLOGY 03/22/21 Pedro Barnhart MD [address] [place] [address] Consulting Physician ORTHOPAEDIC SURGERY 03/22/21 documented as of this encounter
--- OUTSIDE RECORDS SUMMARY | 2024-08-12 01:48 | XMS_ITS | Continuity of Care Document ---
Author Organization [facility] Address [address] [place] [address] Phone Care Team Providers Care Envelope Addresser Name Role Phone Migel Franklin MD Unavailable Unavailable Advance Directives Directive Yes / No Effective Date File Name No Information Encounters Encounter Description Practice Location Reason(s) For Visit Diagnoses Date Provider Providers Copied on Encounter [facility], [address], [place], [place], [id number], tel:[phone] [facility] No Information Rigoberto Lainez. [address] , [place], [place], [address], [place]. tel:[phone] Referring Provider: Yohannes Rivero DO, [address], [place], [address]. tel:[phone] Family History Family Member Type Diagnosis Age At Onset No Information Payers Payer name Insurance type Covered constitution party ID Authoriza tion(s) MEDICARE [id number] [employer] 3 CI [id number] Social History Type Description Quantity Date [...]
--- OUTSIDE RECORDS SUMMARY | 2024-08-12 01:48 | XMS_ITS | Encounter Summary ---
Author Organization [facility] Address [address] [place] [address] Care Team Providers Care Photographic Platemaker Name Role Phone Pablo Vaughn MD Primary Care Provider + [phone] Stanley Mello MD Unavailable [phone] Gilbert Pablo MD Unavailable Zeyad Lozano MD Unavailable [phone] Pedro Barnhart MD Unavailable [phone] Eric Clark MD Primary Care Provider [phone] Encounter Details Date Type Department Care Team (Late st Contact Info) Description 01/06/2018 [facility] at [address] [address] Fede Turcios MA Social History Tobacco Use Types Packs/Day Years Used Date Smoking Tobacco: Former Alcohol Use Standard Drinks/Week Comments No 0 (1 standard drink = 0.6 oz pur e alcohol) Comments Unknown Sex and Gender Information Value Date Recorded Sex Assigned at Female 03/25/2018 2:13 PM VENEER TAPING MACHINE OFFBEARER Legal Sex Female 10:53 PM CDT Gender Identity Female 03/25/2018 2:13 PM VENEER TAPING MACHINE OFFBEARER Sexual Orientation Straight 03/25/2018 2: 13 PM VENEER TAPING MACHINE OFFBEARER Occupation Industry Job Start Date Job End Date Not on file Not on file Not on file Not on file documented as of this encounter Progress Notes * EMELIA Tijerina-MANDA - 01/06/2018 3:31 PM CDT Labs reviewed from a month ago. Will discuss at upcoming appt documented in this encounter Plan of Treatment Not on file documented as of this encounter Procedures Procedure Name Priority Date/Time Associated Diagnosis Comments CBC (OUTSIDE LAB) Routine 11/24/2017 COMPREHENSIVE METABOLIC PANEL Routine 11/24/2017 LIPID PANEL Routine 11/24/2017 THYROID STIM HORMONE TSH Routine 11/24/2017 documented in this encounter Results * LIPID PANEL (11/24/2017) CHOLESTEROL 189 HDL 71 TRIGLYCERIDES 107 NON HDL CHOLESTEROL 118 LDL (CALCULATED) 96.6 11/24/2017 [facility] Final Result * THYROID STIM HORMONE, TSH (11/24/2017) TSH 1.294 11/24/2017 us Doc [facility] Final Result * COMPREHENSIVE METABOLIC PANEL (11/24/2017) SODIUM S/P/B 139 POTASSIUM S/P/B 4.9 CO2 30.1 CHLORIDE S/P/B 104 GLUCOSE 101 mg/dL CALCIUM S/P/B 10.3 BUN 13 CREATININE S/P/B 0.94 0.5 - 1.0 EGFR AFR. AMER. 71 <=90 EGFR NON-AFR. AMER. 61 <=90 ALKALINE PHOSPHATASE S/P/B 71 ALT 19 AST 17 BILIRUBIN TOTAL S/P/B 0.2 ALBUMIN S/P/B 4.2 3.5 - 5.0 TOTAL PROTEIN S/P/B 7.1 11/24/2017 us Doc [facility] Final Result * CBC (OUTSIDE LAB) (11/24/2017) WBC 6.5 HGB 12.8 HCT 40.0 PLT 201 11/24/2017 us Doc [facility] LAB-OUTSIDE/ABSTRACTED Final Result documented in this encounter Visit Diagnoses Not on filedocumented in this encounter Additional Health Concerns Infection Onset Date Last Indicated Resolved Time COVID-19 Rule Out 11/29/2019 11/29/2019 11/29/2019 4:09 PM CDT COVID-19 Rule Out 12/21/2019 12/21/2019 12/21/2019 11:45 AM CDT documented as of this encounter Care Teams Photographic Platemaker Relationship Specialty Start Date End Date Pablo Vaughn MD PCP - General INTERNAL MEDICINE 10/03/17 07/18/21 [place] [address] [place] [address] PCP - General FAMILY PRACTICE 07/19/21 Stanley Mello MD [facility]. [address] [address] [place] Computer Applications Engineer CARDIOVASCULAR DISEASE 10/03/17 Gilbert Pablo MD [address] [facility] [place] [place] [phone] [place] [address] Consulting Physician SURGERY 03/22/21 Zeyad Lozano MD [address] [address] Consulting Physician NEUROLOGY 03/22/21 Pedro Barnhart MD [address] [place] [address] Consulting Physician ORTHOPAEDIC SURGERY 03/22/21 documented as of this encounter
--- OUTSIDE RECORDS SUMMARY | 2024-08-12 01:48 | XMS_ITS | Encounter Summary ---
Author Organization [facility] Address [facility] hospital[address] [place] [address] Care Team Providers Care Multifocal Lens Assembler Name Role Phone Pablo Vaughn MD Primary Care Provider + [phone] Stanley Mello MD Unavailable [phone] Gilbert Pablo MD Unavailable Zeyad Lozano MD Unavailable [phone] Pedro Barnhart MD Unavailable [phone] Eric Clark MD Primary Care Provider Encounter Details Date Type Department Care Team (Late st Contact Info) Description 06/16/2015 Abstract [facility] CONVERSION [address] [address] [place], [place] [id number] , Generic Conversion, Social History Tobacco Use Types Packs/Day Years Used Date Smoking Tobacco: Never Assessed Comments Unknown Sex and Gender Information Value Date Recorded Sex Assigned at Female 03/25/2018 2:13 PM PROGRAMMER BUSINESS Legal Sex Female 10:53 PM CDT Gender Identity Female 03/25/2018 2:13 PM PROGRAMMER BUSINESS Sexual Orientation Straight 03/25/2018 2: 13 PM PROGRAMMER BUSINESS documented as of this encounter Plan of Treatment Not on file documented as of this encounter Visit Diagnoses Not on filedocumented in this encounter Additional Health Concerns Infection Onset Date Last Indicated Resolved Time COVID-19 Rule Out 11/29/2019 11/29/2019 11/29/2019 4:09 PM CDT COVID-19 Rule Out 12/21/2019 12/21/201912/2012/21/2019 11:45 AM CDT documented as of this encounter Care Teams Multifocal Lens Assembler Relationship Specialty Start Date End Date Pablo Vaughn MD PCP - General INTERNAL MEDICINE 10/03/17 07/18/21 [place] [address] [place] [address] PCP - General FAMILY PRACTICE 07/19/21 Stanley Mello MD [address] [address] [place] Cloth Cutter CARDIOVASCULAR DISEASE 10/03/17 Gilbert Pablo MD [address] [facility] [place] [facility] [phone] [place] [address] Consulting Physician SURGERY 03/22/21 Zeyad Lozano MD [address] [address] Consulting Physician NEUROLOGY 03/22/21 Pedro Barnhart MD [address] [address] Consulting Physician ORTHOPAEDIC SURGERY 03/22/21 documented as of this encounter
--- OUTSIDE RECORDS SUMMARY | 2024-08-12 01:48 | XMS_ITS | Referral Summary ---
Author Organization [facility] Address [address] [place] [address] Care Team Providers Care Billing Spec Name Role Phone Pablo Vaughn MD Primary [...] on file Legal Sex Female 1:10 AM DEPUTY SHERIFF/INVESTIGATOR Gender Identity Not on file Sexual Orientation [...] of Treatment Not on file Insurance [place]IC[place] [employer] [place] [employer] [place] Care Teams Billing Spec Relationship Specialty Start Date End Date Pablo Vaughn MD PCP - General 08/09/14
--- OUTSIDE RECORDS SUMMARY | 2024-08-12 01:48 | XMS_ITS | Clinical Summary ---
Author Organization [facility] Address [address] [place] [address] Care Team Providers Care Results Engineer Name Role Phone Priya Ortega MD Unavailable [phone] Gilbert Pablo MD Unavailable Zeyad Lozano MD Unavailable [phone] UngPedro martinez MD Unavailable [phone] Eric Clark MD Primary Care Provider [phone] Allergies Active Allergy Reactions Criticality Noted Date Comments Codeine Itching,Nausea Only Low 01/08/2018 Lisinopril Cough Low 10/14/2012 Sulfa Antibiotics Other (see comment) Low 0 Severe itching Sulfacetamide Itching Low 01/16/2018 Medications Cholecalciferol (VITAMIN D) 2000 units Tab Take 1 tablet (50 mcg total) by mouth daily. 01/10/20 18 Active vitamin C 500 MG tablet Take 1 tablet (500 mg total) by mouth daily. 01/10/20 18 Active Biotin 5000 MCG Tab Take 1 tablet by mouth daily. 01/10/20 18 Active Cranberry Extract 250 MG Tab Take 2 tablets by mouth daily. 01/10/20 18 Active Multiple Vitamins tablet Take 1 tablet by mouth daily. 01/10/20 18 Active Calcium Citrate-Vitamin D 315-200 MG-UNIT Tab Take 1 tablet by mouth daily. Active vitamin B-12 1000 MCG tablet Take 1 tablet (1,000 mcg total) by mouth daily. 11/25/19 18 Active cycloSPORINE (RESTASIS) 0.05 % ophthalmic emulsion Apply 1 drop to eye every 12 (twelve) hours. 04/03/20 17 Active propranolol (INDERAL) 60 MG tablet Take 1 tablet (60 mg total) by mouth daily. Active Turmeric, Curcuma Longa, Powder Active cholestyramine (QUESTRAN) 4 G packetIndications :Loose stools Take 1 packet (4 g total) by mouth 2 (two) times daily with meals. 90 each 1 01/25/20 23 Active omeprazole (PRILOSEC) 20 MG capsuleIndication s:Gastroesophagea l reflux disease with esophagitis, unspecified whether hemorrhage TAKE 1 CAPSULE BY MOUTH TWICE DAILY 180 capsule 3 07/25/19 24 Active escitalopram (LEXAPRO) 20 MG tabletIndications :Moderate episode of recurrent major depressive disorder (CMS/HCC) take 1 tablet by mouth daily 90 tablet 3 08/05/19 24 Active pramipexole (MIRAPEX) 0.25 MG tablet 07/21/19 24 Active SYNTHROID 100 MCG tabletIndications :Acquired hypothyroidism TAKE 1 TABLET BY MOUTH IN THE MORNING WITH WATER ON EMPTY STOMACH 1 HOUR BEFORE BREAKFAST OR 2 HOURS AFTER DINNER WITH NO OTHER MEDS 90 tablet 3 01/12/20 24 Active buPROPion XL (WELLBUTRIN XL) 150 MG 24 hr tabletIndications :Moderate episode of recurrent major depressive disorder (CMS/HCC) Take 1 tablet (150 mg total) by mouth daily. 90 tablet 3 05/11/19 25 Active pregabalin (LYRICA) 75 MG capsuleIndication s:Lumbar radiculopathy Take 1 capsule (75 mg total) by mouth every evening. 90 capsule 05/11/19 25 Active traZODone (DESYREL) 100 MG tabletIndications :Primary insomnia TAKE 1 AND 1/2 TABLETS BY MOUTH AT BEDTIME 135 tablet 1 05/11/19 25 Active predniSONE (DELTASONE) 20 MG tabletIndications :Acute bronchitis, unspecified organism Take two tablets once a day for five days 10 tablet 06/10/19 25 Active amLODIPine (NORVASC) 2.5 MG tabletIndications :Primary hypertension Take 1 tablet (2.5 mg total) by mouth daily. 90 tablet 1 06/14/19 25 Active traMADol (ULTRAM) 50 MG tabletIndications :Arthritis of multiple sites TAKE 1 TABLET BY MOUTH EVERY 4 (FOUR) HOURS NEEDED FOR PAIN. 90 tablet 08/11/19 Active traMADol (ULTRAM) 50 MG tabletIndications :Chronic Pain Take 1 tablet (50 mg total) by mouth every 4 (four) hours as needed for Pain. Indications: Chronic Pain 90 tablet 07/06/19 25 025 Discontinued Hospital, Clinic, or Other Facility Administered Medication Ordered Dose Route Frequency Start Date End Date Status phenazopyridine (PYRIDIUM) tablet 100 mgIndications:UTI symptoms 100 mg OR 3 times daily with meals 09/19/2023 Active Active Problems Problem Noted Date Diagnosed Date Primary fibromyalgia 12/16/2023 Lumbar radiculopathy 12/12/2022 Overview (12/12/2022): Added automatically from request for surgery [id number] Joint replaced by other means 05/30/2021 Osteoarthritis of knee 05/30/2021 Idiopathic peripheral neuropathy 10/20/2020 Imbalance 09/12/2020 Primary localized osteoarthritis of pelvic regio n and thigh 07/27/2020 History of total hip arthroplasty, left 07/28/19 21 Degeneration of cervical intervertebral disc Cervical spondylosis without myelopathy 07/28/19 21 Carpal tunnel syndrome 07/27/2020 Acquired trigger finger 07/27/2020 Iron deficiency anemia 03/16/2020 Overview (07/28/2020): Intolerant of oral replacement therapy. Sees hematology for intravenous iron. Dependent edema 01/29/2020 History of pulmonary embolism 12/20/2019 Overview (07/28/2020): Occurring while hospitalized for small bowel obstruction. Completed 3 months of anticoagulation. Negative hypercoagulability work-up. Primary insomnia 11/03/2019 History of gastric bypass 06/19/2018 Hyperkalemia 08/12/2017 Assessment & Plan (11/15/2018 5:28 PM CDT): Recheck CMP today. Assessment & Plan (04/22/2018 9:21 AM FORMER HAND): Check routine labs to reassess today. Essential tremor 02/13/2017 Overview (04/15/2018): Transitioned From: Resting tremor Assessment & Plan (11/15/2018 5:25 PM CDT): Stable, continues on primidone as prescribed by Dr. Ta, with regular follow- up with him. Improved control of symptoms. No treatment change. Assessment & Plan (04/22/2018 9:19 AM FORMER HAND): Patient reports less effectiveness with her primidone. She is scheduled to see her neurologist in the next 3 months and wishes to wait to discuss this with him. It is not causing any side effects or intolerances however. Anemia, mild 12/07/2015 Assessment & Plan (11/15/2018 5:29 PM CDT): Check CBC today. Assessment & Plan (04/22/2018 9:21 AM FORMER HAND): Obtain CBC and reevaluate today. Medication management 12/06/2015 Overview (04/15/2018): Transitioned From: corsetier use of drug Assessment & Plan (11/15/2018 5:29 PM CDT): Routine lab work to be drawn today. Assessment & Plan (04/22/2018 9:24 AM FORMER HAND): Obtain routine lab work for reassessment of medications, with adjustment of medications as indicated. Repeat lab work in 6 months. Patient due for PCV pneumococcal immunization. Provided today. Gastroesophageal reflux disease with esophagitis 11/07/2015 Assessment & Plan (11/15/2018 5:26 PM CDT): Well-controlled on current dosing of omeprazole. No treatment change. Check vitamin D and B12/folate levels with next blood draw. Assessment & Plan (04/22/2018 9:20 AM FORMER HAND): Stable on current medication and regimen. However, her insurance is going to require her to change dosing with her next renewal. We will plan on changing her to 40 mg once daily when that occurs and continue to monitor for any breakthrough symptoms. Vitamin D deficiency 02/08/2015 Assessment & Plan (04/22/2018 9:20 AM FORMER HAND): Check vitamin D level for chronic medication use today. Moderate episode of recurrent major depressive d isorder 06/15/2014 Assessment & Plan (11/15/2018 5:29 PM CDT): Stable on current dosing of trazodone nightly. Continue to monitor. Patient reports improved stress related to family. Assessment & Plan (04/22/2018 9:23 AM FORMER HAND): Stable at present on current medications. No change in therapy. Pseudophakia of both eyes 05/05/2014 Pernicious anemia 04/02/2013 Assessment & Plan (04/22/2018 9:22 AM FORMER HAND): Continues on vitamin B12 supplements, check levels today. Arthritis of multiple sites 06/24/2012 Overview (04/15/2018): Annotation - [id number]: right hip; left knee; Ran Hopson MD Assessment & Plan (11/15/2018 5:27 PM CDT): Reasonably controlled with intermittent use of ibuprofen as well as tramadol. Review of [place] Prescription Monitoring Program website indicates no misuse or abuse. Continue tramadol dosing. Assessment & Plan (04/22/2018 9:20 AM FORMER HAND): Stable on current regimen, with intermittent use of tramadol for breakthrough symptoms. Acquired hypothyroidism 06/24/2012 Assessment & Plan (11/15/2018 5:28 PM CDT): Patient with excess intake of levothyroxine, due to a misunderstanding of her dosing. Reevaluate with repeat TSH at this time. Patient instructed to take 50 mcg of thyroxine on Sundays and Wednesdays without additional medication. She is to take 88 mcg all other days. Patient voiced understanding and agreement with plan. Assessment & Plan (04/22/2018 9:21 AM FORMER HAND): Patient continues on current regimen. New insurance pharmacy management is going to require a change to generic levothyroxine. We will do that with her next renewal. Encouraged to monitor for any symptoms or other side effects with the change of medication. Check TSH today. Resolved Problems Problem Noted Date Diagnosed Date Resolved Date Hip pain 07/27/2020 07/27/2020 SBO (small bowel obstruction ) ([facility]/HCC HHS/HCC) 12/20/2019 01/28/2020 Gastric outlet obstruction ([facility]/HCC) 12/20/2019 01/28/2020 Class 1 obesity due to exces s calories with serious comorbidity and body mass index (BMI) of 30.0 to 30.9 in adult 11/17/2019 01/15/2022 Acute non-recurrent sinusiti s, unspecified location 03/25/2018 04/15/2018 Dysuria 01/16/2018 04/22/2018 Superficial thrombophlebitis 07/11/2017 04/22/2018 Wears glasses 03/03/2017 01/14/2020 Sinus bradycardia 07/27/2020 Encounters Date Type Department Care Team Description 08/02/2024 Scan [facility] SR[facility]CS Scanned, [facility] (SCAN) 08/02/2024 [facility] [address] Priya Ortega MD Information ([facility] Pre Testing Anesthesia) 07/12/2024 9:29 AM CDT - 07/12/2024 11:59 PM CDT Hospital Encounter [facility] Cardiopulmonary Services [address] [place] [address] Priya Ortega MD Discharge Disposition: Home or Self Care (Routine Discharge) 07/12/2024 9:28 AM CDT Hospital Encounter [facility] Nuclear Medicine [address] [place] [address] Priya Ortega MD Discharge Disposition: Home or Self Care (Routine Discharge) 07/12/2024 Travel 07/02/2024 Telephone [facility] [address] Priya Ortega MD Surgical Clearance 07/01/2024 11:30 AM FORMER HAND [facility] [address] [place] [address] Priya Ortega MD Consult; Hypertension 07/01/2024 Travel 06/10/2024 12:28 PM FORMER HAND - 06/10/2024 11:59 PM FORMER HAND Hospital Encounter [address] [address] Eric Clark MD Discharge Disposition: Home or Self Care (Routine Discharge) 06/10/2024 9:00 AM FORMER HAND Office Visit [facility] Family & Internal Medicine [facility] [id number] [place] [address] [phone] Eric Clark MD UTI (Pt c/o burning, cloudy urine, and frequent urination ) 06/10/2024 Travel from Last 3 Months Immunizations Name Administration Dates Next Due FLUAD (IIV, Trivalent, 0.5 M L Pre-filled Syringe) 02/02/2019 Fluad influenza vaccine, [place] drivalent (aIIV4), Inactivated, adjuvanted, preservative free, 0.5 mL,IM use 02/02/2019 Fluzone High Dose (IIV, triv alent, 0.5mL) 01/21/2018,02/08/2017,02/11/2016,2014,03/01/2013 Fluzone High Dose - >Age 65 (Prefilled Syringe) 02/04/2023,01/17/2022,01/26/2021,2017,02/08/2017,02/11/2016,01/23/2015,1 Influenza (Generic) 02/12/2012 Influenza Adult (Generic) 01/17/2020,01/25/2014 PFIZER COVID-19 BIVALENT (12 +) mRNA, LNP-S, PF, 30 MCG/0.3 ML DOSE 01/17/2022 Pneumococcal (Pneumovax 23) 02/08/2017 Pneumococcal (Prevnar 13) 04/22/2018 Zoster (Zostavax) 28251 Unt/0.65Ml 04/24/2012 Family History Medical History Relation Comments Hypertension Brother Atrial fibrillation Father CHF Father Heart Attack Father Hypertension Father Diabetes Maternal Grandmother Hypertension Maternal Grandmother Stroke Maternal Grandmother Breast Cancer Mother Hypertension Mother mastectomy Mother tia Mother COPD Other Breast Cancer Sister breast cancer Sister Relation Status Comments Brother Alive Father (Age 81) Maternal Grandfather (Age 95) Maternal Grandmother (Age 88) Mother Other Sister Alive Social History Tobacco Use Types Packs/Day Years Used Date Smoking Tobacco: Former Cigarettes 0.5 1 1 979 - 1979 Smokeless Tobacco: Never Tobacco Cessation:Counseling Given: No Comments:former smoker Alcohol Use Standard Drinks/Week Comments Yes 0 (1 standard drink = 0.6 oz pur e alcohol) rare PHQ-2 Answer Date Recorded Patient Health Questionnaire-2 Score 0 12/16/2023 Comments No Sex and Gender Information Value Date Recorded Sex Assigned at Female 03/25/2018 2:13 PM FORMER HAND Legal Sex Female 10:53 PM CDT Gender Identity Female 03/25/2018 2:13 PM FORMER HAND Sexual Orientation Straight 03/25/2018 2: 13 PM FORMER HAND Occupation Industry Job Start Date Job End Date Not on file Not on file Not on file Not on file Last Filed Vital Signs Vital Sign Reading Time Taken Comments Blood Pressure 150/80 07/01/2024 11:19 AM FORMER HAND Pulse 60 07/01/2024 11:19 AM FORMER HAND Temperature 35.8 C (96.5 F) 06/10/2024 9:12 AM FORMER HAND Respiratory Rate 16 06/10/2024 9:12 AM FORMER HAND Oxygen Saturation 92% 06/10/2024 9:12 AM FORMER HAND Inhaled Oxygen Concentration - - Weight 76.2 kg (168 lb) 07/01/2024 11:19 AM FORMER HAND Height 154.9 cm (5' 1 ) 07/01/2024 11:19 AM FORMER HAND Body Mass Index 31.74 07/01/2024 11:19 AM FORMER HAND Plan of Treatment Health Maintenance Due Date Last Done Comments Annual Medicare Wellness Visit 2010 Zoster Vaccines (2 of 3) 06/19/2012 04/24/2012 RSV Immunization or 60+ Years (1 - 1-dose 75+ series) 2020 COVID-19 Vaccine ( season) 2024 02/04/2023, 01/17/2022, 02/21/2021, Additional history exists PHQ-2 (Physician [place]) 05/05/2024 12/16/2023 DTaP, Tdap and Td Vaccines (1 - Tdap) 11/02/2028 Postponed from 1964 (Per Provider Recommendation) Colorectal Cancer Screening Colonoscopy (10 Years) Discontinued 07/15/2012 Pneumococcal Vaccine: 65+ Years Completed 04/22/2018, 02/08/2017 Hepatitis C Completed 05/22/2022 Dexa Scan (General) Completed 07/12/2022 Meningococcal B Vaccine Aged Out No l onger eligible based on patient's age to complete this topic Meningococcal Vaccine Aged Out No sea lita eligible based on patient's age to complete this topic RSV Immunizations Under 20 Months Aged Out No longer eligible based on patient's age to complete this topic Medical Devices Implanted Type Area Lifter/Driver Device Identifier Shelf Expiration Date Model / Serial / Lot Hip Components Hip Components 3.5mm Locking Hexalobe Screws Implanted:Qty: 1 on 11/30/2019 by Pedro Barnhart MD at [facility] Left: Wrist / [id number] / Proximal Vdr Narrow Plate Left Implanted:Qty: 1 on 11/30/2019 by Pedro Barnhart MD at [facility] Left: Wrist / -0352 / 3.5mm Non Locking Hexalobe Screw Implanted:Qty: 1 on 11/30/2019 by Pedro Barnhart MD at [facility] Left: Wrist / / -0258 2.3mm Fully Threaded Locking Screws (Gold) Implanted:Qty: 2 on 11/30/2019 by Pedro Barnhart MD at [facility] Left: Wrist / [id number] / 2.3mm Smooth Locking Pegs (Gold) Implanted:Qty: 1 on 11/30/2019 by Pedro Barnhart MD at [facility] Left: Wrist / / [id number] Explanted Type Area Lifter/Driver Device Identifier Shelf Expiration Date Model / Serial / Lot 2.0 Quick Release Drill Bit Explanted:Qty: 1 on 11/30/2019 by Pedro Barnhart MD at [facility] Left: Wrist / [id number] / Guide Wire Explanted:Qty: 3 on 11/30/2019 by Pedro Barnhart MD at [facility] Left: Wrist / [id number] / 2.8 Quick Release Drill Bit Explanted:Qty: 1 on 11/30/2019 by Pedro Barnhart MD at [facility] Left: Wrist / [id number] / 2.8 Quick Release Drill Bit Explanted:Qty: 1 on 11/30/2019 at [facility] Left: Wrist / [id number] / Procedures Procedure Name Priority Date/Time Associated Diagnosis Comments OUTSIDE LAB (SCAN ORDER) 08/02/2024 OUTSIDE LAB (SCAN ORDER) 08/02/2024 OUTSIDE LAB (SCAN ORDER) 08/02/2024 OUTSIDE PT/INR (SCAN ORDER) 08/02/2024 NM PHARM NUC STRESS TEST 1DAY W TRACING Routine 07/12/2024 12:42 PM CDT Abnormal EKG Chest pain, unspecified type STRESS TEST ONLY, EXERCISE Routine 07/12/2024 11:01 AM CDT Abnormal EKG URINE BACTERIA CULTURE Routine 06/10/2024 9:22 AM FORMER HAND UTI symptoms URINALYSIS AUTO DIP Routine 06/10/2024 UTI symptoms BONE DENSITY/DEXA Routine 07/12/2022 11: 10 AM FORMER HAND Post-menopausal Osteopenia Osteoporosis HEPATITIS C ANTIBODY Routine 05/22/2022 9:53 AM FORMER HAND Lupus (CMS/HCC HHS/HCC) Sjogren syndrome with central nervous system involvement Systemic lupus erythematosus Peripheral nerve disorder Fatigue Senile arthritis Hypomagnesemia Impaired glucose tolerance test Vitamin D deficiency Vitamin B12 deficiency Encounter for therapeutic drug monitoring COLONOSCOPY Routine 07/15/2012 12:00 AM CDT from Last 3 Months or Most Recently Relevant to Health Maintenance Results * OUTSIDE PT/INR (SCAN ORDER) (08/02/2024) 08/02/2024 Result [facility] Scanned SCANNING Final Resu lt * OUTSIDE LAB (SCAN ORDER) (08/02/2024) Only the most recent of3 resultswithin the time period is included. 08/02/2024 Result [facility] Scanned SCANNING Final Resu lt * NM PHARM NUC STRESS TEST 1 DAY W TRACING (07/12/2024 12:42 PM CDT) Anatomical Region Laterality Modality Cardiac Nuclear Medicine 07/12/2024 1:56 PM CDT Impressions 07/12/2024 3:04 PM CDT IMPRESSION: 1. No stress-induced reversible perfusion abnormality to suggest ischemia. 2. Normal left ventricular size and systolic function. The attending radiologist has reviewed the image(s) and agrees with the content of this report. Ordered By: PRIYA ORTEGA Interpreted By: Dillon Barry MD, 07/12/2024 1:56 PM Narrative 07/12/2024 3:04 PM CDT [id number] [place] [address] EXAMINATION: MYOCARDIAL IMAGING (REST AND PHARMACOLOGIC-STRESS/SPECT) DATE OF STUDY: 07/12/2024 9:29 AM RADIOPHARMACEUTICAL: 10.9 mCi, 32.9 mCi Tc-99m sestamibi i.v. HISTORY: Preoperative exam for cervical spinal fusion. Possible old anterior myocardial infarction. Hypertension. History of PE. Chest pain, back/neck/shoulder pain. Evaluate for ischemia and/or myocardial infarction. The patient's body mass index (BMI) was 31.74. FINDINGS: Standard myocardial perfusion images were obtained after resting tracer injection. Subsequently, an intravenous infusion of Regadenoson (0.4 mg of A2A adenosine receptor agonist Regadenoson (Lexiscan), infused intravenously over approximately 10 seconds, followed approximately after another 20 seconds by tracer infusion) was performed without low level exercise on the date indicated above. The stress test and EKG were performed under the supervision of Dr. Ortega. Standard myocardial perfusion images were obtained after tracer injection at the peak effect of the drug. Images were obtained in a supine position. Patient stated they were unable to do prone imaging due to knee pain and back pain. COMPARISON: None The projection images were reviewed for image quality, and reveal minimal motion artifact and breast attenuation and. There is normal distribution of activity in the left and right ventricular myocardium on both stress and rest images. No stress-induced reversible perfusion abnormality to suggest ischemia Gated post-stress images demonstrate normal left ventricular volume, normal left ventricular wall motion and? normal ejection fraction of >70 % (normal >45%). Procedure Note Loni Fernandez MD - 07/12/2024 [id number] [facility] [place] [address] EXAMINATION: MYOCARDIAL IMAGING (REST AND PHARMACOLOGIC-STRESS/SPECT) DATE OF STUDY: 07/12/2024 9:29 AM RADIOPHARMACEUTICAL: 10.9 mCi, 32.9 mCi Tc-99m sestamibi i.v. HISTORY: Preoperative exam for cervical spinal fusion. Possible oldanterior myocardial infarction. Hypertension. History of PE. Chest pain,back/neck/shoulder pain. Evaluate for ischemia and/or myocardialinfarction. The patient's body mass index (BMI) was 31.74. FINDINGS: Standard myocardial perfusion images were obtained after restingtracer injection. Subsequently, an intravenous infusion of Regadenoson(0.4 mg of A2A adenosine receptor agonist Regadenoson (Lexiscan), infusedintravenously over approximately 10 seconds, followed approximately afteranother 20 seconds by tracer infusion) was performed without low levelexercise on the date indicated above. The stress test and EKG wereperformed under the supervision of Dr. Ortega. Standard myocardial perfusion images were obtained after tracer injectionat the peak effect of the drug. Images were obtained in a supineposition. Patient stated they were unable to do prone imaging due to kneepain and back pain. COMPARISON: None The projection images were reviewed for image quality, and reveal minimalmotion artifact and breast attenuation and. There is normal distribution of activity in the left and right ventricularmyocardium on both stress and rest images. No stress-induced reversibleperfusion abnormality to suggest ischemia Gated post-stress images demonstrate normal left ventricular volume,normal left ventricular wall motion and? normal ejection fraction of >70% (normal >45%). IMPRESSION: 1. No stress-induced reversible perfusion abnormality to suggestischemia. 2. Normal left ventricular size and systolic function. The attending radiologist has reviewed the image(s) and agrees with thecontent of this report. 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 Baseline EKG shows sinus without St changes Patient underwent a Lexiscan Stress. Given 0.4mg of Lexiscan followed by the isotope. Test ended: per protocol Patient symptoms: mild DRUMMOND, CP Stress EKG: unchanged CONCLUSIONS: 1. Electrocardiographically: negative 2. Clinically: negative 3. 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 Baseline EKG showssinus without St changes Patient underwent a Lexiscan Stress. Given 0.4mg of Lexiscan followed bythe isotope. Test ended: per protocol Patient symptoms: mild DRUMMOND, CP Stress EKG: unchanged CONCLUSIONS: 1. Electrocardiographically: negative 2. Clinically: negative 3. Await nuclear images us Priya Ortega MD CV CARDIAC SERVICES ORDERAB LES Final Result [facility] ([facility]) RAD * (ABNORMAL) URINE BACTERIA CULTURE (06/10/2024 9:22 AM FORMER HAND) SPEC DESCRIPTION URINE CLEAN CATCH 06/10/2024 12:29 PM FORMER HAND [facility] SPECIAL REQUESTS NO SPECIAL REQUEST 06/10/2024 12:29 PM FORMER HAND [facility] CULTURE RESULT 10,000-49,0 00 COL/ML ESCHERICHIA COLI (A) 06/12/2024 7:49 AM FORMER HAND [facility] URINE SPECIMEN OBTAINED BY CLEAN CATCH PROCEDURE / Unknown 06/10/2024 9:22 AM FORMER HAND 06/10/2024 12:41 PM FORMER HAND Narrative Organism Antibiotic Method Susceptibility Escherichia coli AMPICILLIN DIEGO (VITEK) 8: Sensitive Escherichia coli AMPICILLIN/SULBACTAM DIEGO (VITEK) 4: Sensitive Escherichia coli CEFTRIAXONE DIEGO (VITEK) <=1: Sensitive Escherichia coli CEFTAZIDIME DIEGO (VITEK) <=1: Sensitive Escherichia coli CEFAZOLIN DIEGO (VITEK) <=4: Sensitive Escherichia coli ESBL DIEGO (VITEK) NEG: Sensitive Escherichia coli NITROFURANTOIN DIEGO (VITEK) <=16: Sensitive Escherichia coli GENTAMICIN DIEGO (VITEK) <=1: Sensitive Escherichia coli LEVOFLOXACIN DIEGO (VITEK) <=0.12: Sensitive Escherichia coli PIPRACIL/TAZO DIEGO (VITEK) <=4: Sensitive Escherichia coli TRIMETH-SULFAMETH. DIEGO (VITEK) <=20: Sensitive Eric Clark MD MICROBIOLOGY - GENERAL ORDE [facility] Final Result [facility] [address] [place] [address], [place] [phone] [facility] [address] [place] [address], [place] [phone] * (ABNORMAL) URINALYSIS AUTO DIP (06/10/2024) COLOR (U) ORANGE(A) YELLOW MG-[id number], [facility] TRAN[facility]ENC[facility] CLOUDY(A) CLEAR MG-[address], [place] GLUCOSE (U) NEGATIVE NEGATIVE MG/DL MG-[id number] [address], [place] BILIRUBIN (U) 1+ (SMALL)(A) NEGATIVE MG-[address], [facility] KETONES MG/DL (U) 5 (TRACE)(A) NEGATIVE MG/DL MG-[id number], [facility] SPECIFIC GRAVITY (U) 1.030 1.001 - 1.035 MG-[address], [facility] BLOOD (U) LARGE (Non Hemolyzed, Intact, About 250 rbc/uL)(A) NEGATIVE MG-[address], [facility] U PH 5.5 5.0 - 9.0 MG-[address], [place] PROTEIN (U) 3+ (>=300)(A) NEGATIVE mg/dL MG-99727 [facility], [place] UROBILINOGEN 0.2 0.2 - 1.0 EU/dL = mg/dL MG-10226 [facility], [place] NITRITES POSITIVE(A) NEGATIVE MG/DL MG-07360 [facility], [place] LEUKOCYTES (U) TRACE(A) NEGATIVE MG-12 [address] [facility] [address], [place] URINE SPECIMEN OBTAINED BY CLEAN CATCH PROCEDURE / Unknown 06/10/2024 us Eric Clark MD URINE ORDERABLES Final Resu lt -[id number] [facility] [facility], [facility] [address] [place] [address], * BONE DENSITY/DEXA (07/12/2022 11:10 AM FORMER HAND) Anatomical Region Laterality Modality Bone Bone Density 07/12/2022 11:1 2 AM FORMER HAND Narrative 07/12/2022 11:14 AM FORMER HAND IMAGING STUDIES: BONE DENSITY/DEXA DATE: 07/12/2022 10:59 AM CLINICAL HISTORY: Postmenopausal. On calcium replacement therapy. 76-year-old female with menopause at age 52. FINDINGS: LUMBAR SPINE L2-L4: BMD: 0.998 g/sq cm T-SCORE: -0.7 WHO CLASSIFICATION: Normal young adult range FRACTURE RISK: Very low Right distal forearm. BMD: 0.509 T-SCORE: -3.0 WHO CLASSIFICATION: Moderate osteoporosis FRACTURE RISK: Moderately high COMPARISON STUDY: 12/07/2007. LUMBAR SPINE L2-L4: BMD: 1.189 T-SCORE: -0.1 WHO CLASSIFICATION: Normal young adult range FRACTURE RISK: Very low LEFT FEMORAL NECK: BMD: 0.780 T-SCORE: -1.7 WHO CLASSIFICATION: Moderate osteopenia FRACTURE RISK: Very low Recommendation. Continuation of calcium replacement therapy/instigation of aggressive calcium replacement therapy, with repeat imaging in one year.. Ordered By: ELAN HECK Interpreted By: Mayra Joseph, 07/12/2022 11:12 AM Procedure Note Fredi Joseph MD - 07/12/2022 IMAGING STUDIES: BONE DENSITY/DEXA DATE: 07/12/2022 10:59 AM CLINICAL HISTORY: Postmenopausal. On calcium replacement therapy.76-year-old female with menopause at age 52. FINDINGS: LUMBAR SPINE L2-L4: BMD: 0.998 g/sq cm T-SCORE: -0.7 WHO CLASSIFICATION: Normal young adult range FRACTURE RISK: Very low Right distal forearm. BMD: 0.509 T-SCORE: -3.0 WHO CLASSIFICATION: Moderate osteoporosis FRACTURE RISK: Moderately high COMPARISON STUDY: 12/07/2007. LUMBAR SPINE L2-L4: BMD: 1.189 T-SCORE: -0.1 WHO CLASSIFICATION: Normal young adult range FRACTURE RISK: Very low LEFT FEMORAL NECK: BMD: 0.780 T-SCORE: -1.7 WHO CLASSIFICATION: Moderate osteopenia FRACTURE RISK: Very low Recommendation. Continuation of calcium replacement therapy/instigation ofaggressive calcium replacement therapy, with repeat imaging in oneyear.. Ordered By: ELAN HECK Interpreted By: Mayra Joseph, 07/12/2022 11:12 AM Elan Heck MD DEXA Final Result * HEPATITIS C ANTIBODY (05/22/2022 9:53 AM FORMER HAND) HEPATITIS C AB NON-REACTI VE NON-REACTI VE 05/22/2022 2:49 PM FORMER HAND [facility] 05/22/2022 9:53 AM FORMER HAND us Elan Heck MD LABORATORY Final Result [facility] [address] [place] [address], [place] [phone] * Colonoscopy (07/15/2012 12:00 AM CDT) 07/15/2012 07/15/2012 Narrative [facility] TO EPIC CONVERSION - 07/15/2012 12:00 AM CDT Documented hx of procedure Procedure Note Yelena Plaza MD - 03/08/2018 Documented hx of procedure us Generic Conversion Md PLAZA GI PROCEDURE ORDERABLES Final Result [facility] TO EPIC CONVERSION from Last 3 Months or Most Recently Relevant to Health Maintenance Insurance MEDICARE ALLIED BENEFITS MEDICARE [facility] Advance Directives * No Code Status (Latest Code Status on File) Date Activated Date Inactivated Comments 07/02/2022 9:08 AM 03/17/2023 9:17 AM all routine medication should be sent to [facility] please * Full Code Date Activated Date Inactivated Comments 12/21/2019 8:23 AM 12/25/2019 1:18 PM * Full Code Date Activated Date Inactivated Comments 12/14/2019 10:08 PM 12/20/2019 6:39 PM Care Teams Results Engineer Relationship Specialty [place] [address] [place] [place] [address] PCP - General FAMILY PRACTICE 07/19/21 Priya Ortega MD [facility]. [facility] [address] [place] [address] Steve Mental Health Program Specialist CARDIOVASCULAR DISEASE 10/03/17 Gilbert Pablo MD [address] [facility] [phone] [place] [address] Consulting Physician SURGERY 03/22/21 Zeyad Lozano MD [address] [address] Consulting Physician NEUROLOGY 03/22/21 Pedro Barnhart MD [address] [place] [address] [address] Consulting Physician ORTHOPAEDIC SURGERY 03/22/21
--- OUTSIDE RECORDS SUMMARY | 2024-08-12 01:48 | XMS_ITS | Clinical Summary ---
Author Organization [facility] Address [address], [facility] [address] [place] [address] Phone Care Team Providers Care Crepe Sole Scourer Name Role Phone Pablo Vaughn MD Primary Care Provider [phone] Gerhard Colin MD Unavailable [phone] Allergies Active Allergy Reactions Criticality Noted Date [...] Lnp-s, Pf, 3 0 Mcg/0.3 Ml Dose ([employer]) 07/22/2020,07/01/2020 Influenza Vaccine 01/17/2020 Influenza Vaccine,unspecifie d [...] age to complete this topic Insurance MEDICARE [facility] Care Teams Crepe Sole Scourer Relationship Specialty [place] [address] [address] PCP - General General Surgery 02/01/20 Gerhard Colin MD [address] [place] [phone] Consulting Physician Oncology 04/12/20
--- OUTSIDE RECORDS SUMMARY | 2024-08-12 01:48 | XMS_ITS | Encounter Summary ---
Author Organization [facility] Address [facility] [place] [address] Care Team Providers Care Eggs Inspector Name Role Phone Pablo Vaughn MD Primary Care Provider [phone] Stanley Mello MD Unavailable [phone] Gilbert Pablo MD Unavailable Zeyad Lozano MD Unavailable [phone] Pedro Barnhart MD Unavailable [phone] Eric Clark MD Primary Care Provider [phone] Encounter Details Date Type Department Care Team (Late st Contact Info) Description 11/29/2019 Prep for Procedure [facility] [address] [place], [place] [id number] Pedro Barnhart MD [address] [address] Social History Tobacco Use Types Packs/Day Years Used Date Smoking Tobacco: Former Cigarettes Q uit: 1980 Smokeless Tobacco: Never Alcohol Use Standard Drinks/Week Comments Yes 0 (1 standard drink = 0.6 oz pur e alcohol) little PHQ-2 Answer Date Recorded PHQ-2 Score 2 11/17/2019 Comments No Sex and Gender Information Value Date Recorded Sex Assigned at Female 03/25/2018 2:13 PM FACIALIST Legal Sex Female 10:53 PM CDT Gender Identity Female 03/25/2018 2:13 PM FACIALIST Sexual Orientation Straight 03/25/2018 2: 13 PM FACIALIST Occupation Industry Job Start Date Job End [...] on file documented as of this encounter Results * ECG 12-Lead (11/29/2019 1:51 PM CDT) 11/29/2019 1:51 PM CDT Narrative [facility] RAD - 11/29/2019 4:[address] [facility] Test Date: 2019-11-29 Pat Name: LEAH TAPIA Department: Room: Gender: Female Urgent Care Technician: : 1945 Requested By: PEDRO BARNHART Order Number: [id number] Reading MD: Mars Mcintosh Measurements Intervals [place] Rate: 60 P: 26 NH: 152 QRS: 1 QRSD: 84 T: 23 QT: 383 QTc: 386 Interpretive Statements SINUS RHYTHM LOW QRS VOLTAGE IN PRECORDIAL LEADS [QRS DEFLECTION < 1.0 mV IN CHEST LEADS] No previous ECG available for comparison Procedure Note Mars Mcintosh MD - 11/29/2019 [facility] Test Date: 2019-11-29 Pat Name: LEAH TAPIA Department: Room: Gender: Female Urgent Care Technician: : 1945 Requested By: PEDRO BARNHART Order Number: [id number] [place]oxann PLAZA: Mars Mcintosh Measurements Intervals [place] Rate: 60 P: 26 NH: 152 QRS: 1 QRSD: 84 T: 23 QT: 383 QTc: 386 Interpretive Statements SINUS RHYTHM LOW QRS VOLTAGE IN PRECORDIAL LEADS [QRS DEFLECTION < 1.0 mV IN CHESTLEADS] No previous ECG available for comparison us Pedro Barnhart MD ECG ORDERABLES Final Result [facility] ([facility]) RAD * RESPIRATORY PCR PANEL 2 (11/29/2019 11:34 AM CDT) Pathologist [facility] ADENOVIRUS PCR (RESP) NOT DETECTED NOT DETECTED 11/29/2019 4:09 PM CDT [facility] CORONAVIRUS 229E PCR (RESP) NOT DETECTED NOT DETECTED 11/29/2019 4:09 PM CDT [facility] CORONAVIRUS HKU1 PCR (RESP) NOT DETECTED NOT DETECTED 11/29/2019 4:09 PM CDT [facility] CORONAVIRUS NL63 PCR (RESP) NOT DETECTED NOT DETECTED 11/29/2019 4:09 PM CDT [facility] CORONAVIRUS OC43 PCR (RESP) NOT DETECTED NOT DETECTED 11/29/2019 4:09 PM CDT [facility] METAPNEUMOVIRUS PCR (RESP) NOT DETECTED NOT DETECTED 11/29/2019 4:09 PM CDT [facility] RHINOVIRUS/ENTEROV IRUS PCR (RESP) NOT DETECTED NOT DETECTED 11/29/2019 4:09 PM CDT [facility] INFLUENZA A PCR (RESP) NOT DETECTED NOT DETECTED 11/29/2019 4:09 PM CDT [facility] INFLUENZA B PCR (RESP) NOT DETECTED NOT DETECTED 11/29/2019 4:09 PM CDT [facility] PARAINFLUENZA 1 PCR (RESP) NOT DETECTED NOT DETECTED 11/29/2019 4:09 PM CDT [facility] PARAINFLUENZA 2 PCR (RESP) NOT DETECTED NOT DETECTED 11/29/2019 4:09 PM CDT [facility] PARAINFLUENZA 3 PCR (RESP) NOT DETECTED NOT DETECTED 11/29/2019 4:09 PM CDT [facility] PARAINFLUENZA 4 PCR (RESP) NOT DETECTED NOT DETECTED 11/29/2019 4:09 PM CDT [facility] RSV PCR (RESP) NOT DETECTED NOT DETECTED 11/29/2019 4:09 PM CDT [facility] B PARAPERTUSIS PCR (RESP) NOT DETECTED NOT DETECTED 11/29/2019 4:09 PM CDT [facility] BORDETELLA PERTUSSIS PCR (RESP) NOT DETECTED NOT DETECTED 11/29/2019 4:09 PM CDT [facility] CHLAMYDOPHILA PNEUMONIAE PCR (RESP) NOT DETECTED NOT DETECTED 11/29/2019 4:09 PM CDT [facility] MYCOPLASMA PNEUMONIAE PCR (RESP) NOT DETECTED NOT DETECTED 11/29/2019 4:09 PM CDT [facility] CORONAVIRUS SARS COV 2 PCR (RESP) NOT DETECTED NOT DETECTED 11/29/2019 4:09 PM CDT [facility] Comment: THE SARS-CoV-2 TEST HAS BEEN AUTHORIZED BY THE FDA UNDER AN EUA FOR USE BY AUTHORIZED LABORATORIES. NASOPHARYNGEAL STRUCTURE / Unknown 11/29/2019 11:34 AM CDT us Pedro Barnhart MD MICROBIOLOGY - GENERAL ORDERA BLES Final Result [facility] [address] [place] [address], [place] [phone] documented in this encounter Visit Diagnoses Diagnosis Preoperative testing- Primary Preoperative examination, unspecified Preoperative clearance Preoperative examination, unspecified Preoperative clearance Preoperative examination, unspecified documented in this encounter Additional Health Concerns Infection Onset Date Last Indicated Resolved Time COVID-19 Rule Out 11/29/2019 11/29/2019 11/29/2019 4:09 PM CDT COVID-19 Rule Out 12/21/2019 12/21/2019 12/21/2019 11:45 AM CDT documented as of this encounter Care Teams Eggs Inspector Relationship Specialty Start Date End Date Pablo Vaughn MD PCP - General INTERNAL MEDICINE 10/03/17 07/18/21 [place] [address] [facility] [address] PCP - General FAMILY PRACTICE 07/19/21 Stanley Mello MD [address] [address] [place] Quality Assurance Supervisor Body CARDIOVASCULAR DISEASE 10/03/17 Gilbert Pablo MD [address] [facility] [phone] [place] [address] Consulting Physician SURGERY 03/22/21 Zeyad Lozano MD [address] [address] Consulting Physician NEUROLOGY 03/22/21 Pedro Barnhart MD [address] [address] Consulting Physician ORTHOPAEDIC SURGERY 03/22/21 documented as of this encounter
--- OUTSIDE RECORDS SUMMARY | 2024-08-12 01:48 | XMS_ITS | Clinical Summary ---
Author Organization [facility] Address [address] [place] [address] Care Team Providers Care Training Engineer Name Role Phone Pablo Vaughn MD Primary [...] on file Legal Sex Female 1:10 AM ACCURACY EXPERT Gender Identity Not on file Sexual Orientation [...] of Treatment Not on file Insurance MEDICARE [facility] agencyQ [place] MEDICARE Care Teams Training Engineer Relationship Specialty Start Date End Date Pablo Vaughn MD PCP - General 08/09/14
--- NOTE | 2024-08-12 09:19 | WPDANESEPPF ---
Anes - Initial Pre Proc Eval Procedure: Operation Date: 08/12/24 11:00 Proposed Procedures p C3-4, Anterior Cervical Discectomy with Fusion - Mati Garcia MD Date/Time: 08/12/24 09:19 Surgeon: Mati Garcia MD Pre Op Diagnosis: cervical stenosis Patient Data Age: 78 Gender: F Height: 1.52 m Weight: 77.4 kg Last Vital Signs Temp 97.9 F 08/02/24 09:32 Pulse 55 L 08/02/24 09:32 Resp 16 08/02/24 09:32 BP 146/77 H 08/02/24 09:32 Pulse Ox 98 08/02/24 09:32 O2 Del Method Room Air 08/02/24 09:32 Allergies Allergy/AdvReac Type Severity Reaction Status Date / Time codeine AdvReac Intermediate gastric Verified 08/02/24 09:12 distress lisinopril AdvReac Intermediate Itching Verified 08/02/24 09:12 Sulfa (Sulfonamide AdvReac Intermediate Gastrointestinal Verified 08/02/24 09:12 Antibiotics) Upset Home Medications ?Medication ?Instructions ?Recorded ?Confirmed ?Type bupropion HCl 150 mg 24 hr tablet, 150 mg PO QAM 11/01/20 08/02/24 History extended release amlodipine 2.5 mg tablet 2.5 mg PO DAILY 11/12/23 08/02/24 History escitalopram oxalate 10 mg tablet 10 mg PO DAILY 11/12/23 08/02/24 History levothyroxine 100 mcg tablet 100 mcg PO DAILY 11/12/23 08/02/24 History (Synthroid) omeprazole 20 mg capsule,delayed 20 mg PO BID 11/12/23 08/02/24 History release pramipexole 0.25 mg tablet 0.25 mg PO QHS 11/12/23 08/02/24 History pregabalin 75 mg capsule 75 mg PO HS 11/12/23 08/02/24 History tramadol 50 mg tablet 50 mg PO Q6H PRN Pain 11/12/23 08/02/24 History acetaminophen 650 mg 1,300 mg PO Q8H PRN pain 08/02/24 08/02/24 History tablet,extended release (8 Hour Pain Reliever) ascorbic acid (vitamin C) 500 mg 500 mg PO DAILY 08/02/24 08/02/24 History capsule calcium carb-ergocalciferol (vit 1 tablet PO .PO 08/02/24 08/02/24 History D2) 600 mg calcium-200 unit tablet cholecalciferol (vitamin D3) 50 2,000 unit PO DAILY 08/02/24 08/02/24 History mcg (2,000 unit) capsule collagen,hydrolysate 500 mg-biotin 1 cap PO DAILY 08/02/24 08/02/24 History 800 mcg-ascorbic acid 50 mg capsule (Collagen 1500 Plus C) cranberry extract 250 mg tablet 250 mg PO BID 08/02/24 08/02/24 History cyanocobalamin (vitamin B-12) 2,000 mcg PO DAILY 08/02/24 08/02/24 History 1,000 mcg capsule cyclosporine 0.05 % eye drops in a 1 drp EACH EYE Q12H 08/02/24 08/02/24 History dropperette (Restasis) propranolol 60 mg tablet 30 mg PO Q12H 08/02/24 08/02/24 History pyridoxine (vitamin B6) 100 mg 100 mg PO DAILY 08/02/24 08/02/24 History tablet trazodone 100 mg tablet 150 mg PO HS 08/02/24 08/02/24 History turmeric 400 mg capsule 1,500 mg PO DAILY 08/02/24 08/02/24 History Patient hx anesthesia problems: none Family hx anesthesia problems: none Results Review: All pre-operative results and documents have been reviewed as part of the pre-operative evaluation. [facility] Past Medical History Medical History Cataracts, both eyes Gallbladder & bile duct stone with obstruction History of blood clots Hypertension Pulmonary embolism Surgical History Surgical History H/O abdominal hysterectomy H/O left wrist surgery History of left hip replacement History of right hip replacement History of tonsillectomy S/P gastroplasty Family History Family History Sibling Carcinoma of colon Social History Social History Smoking packs per day: 1 Smoking cigarettes per day: 20.0 Years smoked: 1 Smoking pack-years: 1.00 Smoking status: Former smoker Smoking end date: 08/03/1965 Alcohol intake: never Alcohol use details: very rarely Substance use: never Do You Feel Safe in your Home?: Yes Lack of Transportation: No Lack of Food: Never True Current Housing: I Have Housing Concerned About Future Housing: No Difficulty Paying Gas/Electric Bills: No Difficulty Paying for Meds: No Currently Unemployed: No Education: High School Diploma/GED Difficulty w/ Childcare or Family Care: No Living arrangements: with family Additional living arrangements comments: [facility] care concerns: No Anes - Eval Final PreProcedure Day of Procedure 08/12/24 09:19 Patient weight: obese Heart: regular rate and rhythm Lungs: clear to auscultation Airway: Mallampati scale class II Neurological: alert and oriented Last oral intake: >/= 8 hours ASA classification: III Emergent: no Anesthetic plan: proceed Anesthesia type and monitoring: general ETT and standard monitoring Results Review: All pre-operative results and documents have been reviewed as part of the pre-operative evaluation. Informed Consent: The patient's anesthetic plan and its attendant risks and benefits were discussed with the patient/family/POA. Questions were solicited and answers provided to the satisfaction of the patient/family/POA.
[2024-08-12] MEDS: LACTATED RINGERS 1,000 ML 30 ML IV CONT ×2 (09:55→13:03)
--- NOTE | 2024-08-12 11:20 | PM.IMHP ---
H&P: HPI History of Present Illness Date/Time: 08/12/24 11:20 Chief Complaint: Cervical stenosis Narrative: Leah is here today for C3-4 anterior cervical diskectomy and fusion. She is a 77-year-old female with past medical history significant for bilateral hip replacement and low back pain. She does not report any significant neck pain. She is to undergo a knee replacement and because of complaints of falls an MRI of the cervical spine was performed which demonstrated stenosis. The falls have been occurring for some time. She says that she just loses her balance and falls. She does not report that she is listing from side to side in hallways or as she walks. She does not report specific loss of dexterity in her hands or numbness in her hands but does state that she sometimes drops objects without explanation. She remains freely ambulatory and her main complaint remains knee pain. This is severe and limiting for her. She is not having bowel or bladder difficulty. As mentioned she does not have specific muscle group weakness or dermatomal numbness. Review of Systems Review of Systems: All systems reviewed & are unremarkable except as noted in HPI and below Denies chills, Denies fever(s), Denies weakness, Denies weight gain and Denies weight loss Eyes Denies change in vision and Denies diplopia ENT Denies neck pain and Denies disequilibrium Card Denies chest pain and Denies dyspnea Resp Denies cough and Denies dyspnea GI Denies abdominal pain, Denies change in bowel habits, Denies fecal incontinence and Denies vomiting Denies hematuria, Denies oliguria, Denies difficulty urinating, Denies dysuria, Denies urinary frequency, Denies urinary hesitancy, Denies urinary incontinence and Denies urinary urgency Musc Reports as per HPI, Reports back pain, Denies muscle weakness, Denies neck pain, Reports numbness and Denies stiffness Skin/ Breast Reports system reviewed and no additional complaints, except as documented Neuro Reports as per HPI, Denies burning sensations, Denies focal weakness, Reports numbness, Denies Other visual disturbances, Reports radicular pain, Reports paresthesias, Denies disequilibrium and Denies weakness Psych Reports no additional complaints, Denies depression and Denies hopelessness Endo Reports no additional complaints and Denies polyuria Tim/ Lymph Reports no additional complaints Aller/ Immun Reports no additional complaints PMFSH Past Medical History Medical History Cataracts, both eyes Gallbladder & bile duct stone with obstruction History of blood clots Hypertension Pulmonary embolism Surgical History Surgical History H/O abdominal hysterectomy H/O left wrist surgery History of left hip replacement History of right hip replacement History of tonsillectomy S/P gastroplasty Family History Family History Sibling Carcinoma of colon Social History Social History Smoking packs per day: 1 Smoking cigarettes per day: 20.0 Years smoked: 1 Smoking pack-years: 1.00 Smoking status: Former smoker Smoking end date: 08/03/1965 Alcohol intake: never Alcohol use details: very rarely Substance use: never Do You Feel Safe in your Home?: Yes Lack of Transportation: No Lack of Food: Never True Current Housing: I Have Housing Concerned About Future Housing: No Difficulty Paying Gas/Electric Bills: No Difficulty Paying for Meds: No Currently Unemployed: No Education: High School Diploma/GED Difficulty w/ Childcare or Family Care: No Living arrangements: with family Additional living arrangements comments: [place] Spiritual care concerns: No Meds Home Medications and Allergies Home Medications ?Medication ?Instructions ?Recorded ?Confirmed ?Type bupropion HCl 150 mg 24 hr tablet, 150 mg PO QAM 11/01/20 08/12/24 History extended release amlodipine 2.5 mg tablet 2.5 mg PO DAILY 11/12/23 08/12/24 History escitalopram oxalate 10 mg tablet 10 mg PO DAILY 11/12/23 08/12/24 History levothyroxine 100 mcg tablet 100 mcg PO DAILY 11/12/23 08/12/24 History (Synthroid) omeprazole 20 mg capsule,delayed 20 mg PO BID 11/12/23 08/12/24 History release pramipexole 0.25 mg tablet 0.25 mg PO QHS 11/12/23 08/12/24 History pregabalin 75 mg capsule 75 mg PO HS 11/12/23 08/12/24 History tramadol 50 mg tablet 50 mg PO Q6H PRN Pain 11/12/23 08/02/24 History acetaminophen 650 mg 1,300 mg PO Q8H PRN pain 08/02/24 08/02/24 History tablet,extended release (8 Hour Pain Reliever) ascorbic acid (vitamin C) 500 mg 500 mg PO DAILY 08/02/24 08/12/24 History capsule calcium carb-ergocalciferol (vit 1 tablet PO .PO 08/02/24 08/12/24 History D2) 600 mg calcium-200 unit tablet cholecalciferol (vitamin D3) 50 2,000 unit PO DAILY 08/02/24 08/12/24 History mcg (2,000 unit) capsule collagen,hydrolysate 500 mg-biotin 1 cap PO DAILY 08/02/24 08/12/24 History 800 mcg-ascorbic acid 50 mg capsule (Collagen 1500 Plus C) cranberry extract 250 mg tablet 250 mg PO BID 08/02/24 08/12/24 History cyanocobalamin (vitamin B-12) 2,000 mcg PO DAILY 08/02/24 08/12/24 History 1,000 mcg capsule cyclosporine 0.05 % eye drops in a 1 drp EACH EYE Q12H 08/02/24 08/12/24 History dropperette (Restasis) propranolol 60 mg tablet 30 mg PO Q12H 08/02/24 08/12/24 History pyridoxine (vitamin B6) 100 mg 100 mg PO DAILY 08/02/24 08/12/24 History tablet trazodone 100 mg tablet 150 mg PO HS 08/02/24 08/12/24 History turmeric 400 mg capsule 1,500 mg PO DAILY 08/02/24 08/12/24 History Allergies Allergy/AdvReac Type Severity Reaction Status Date / Time codeine AdvReac Intermediate gastric Verified 08/12/24 10:10 distress lisinopril AdvReac Intermediate Itching Verified 08/12/24 10:10 Sulfa (Sulfonamide AdvReac Intermediate Gastrointestinal Verified 08/12/24 10:10 Antibiotics) Upset Vital Signs Vital Signs - 24 hr 08/12/24 09:00 Temperature 98.0 F Pulse Rate 57 L Respiratory Rate 18 Blood Pressure 144/52 H Pulse Oximetry 100 Oxygen Delivery Room Air Exam Narrative: General: cooperative, no acute distress, well developed, alert and awake Orientation/Consciousness: oriented to person, oriented to place and oriented to time Constitutional Limitations: no limitations Other: The patient is a normally developed, normal appearing male sitting on the examination table in no acute distress. He is awake, alert, and oriented x3 with good fund of knowledge, recall of events, and fluent speech. HENKS Head: normocephalic and atraumatic Ears: external ears normal Face/Nose/Sinus: Normal external nose present Eyes Eyelids: eyelids normal Pupils: Yes Pupils normal by confrontation EOM: EOMs intact bilaterally Neck General: Yes no meningeal signs, Yes supple and Yes no JVD Resp Effort/Inspection: normal respiratory effort and able to speak in complete sentences Cardio Rate: Yes regular rate GI Inspection: No abdominal distension Musc Other: Examination of the back reveals no tenderness. Range of motion of the neck is slightly limited without significant pain in forward flexion, extension, and lateral rotation to both sides. Skin General: normal color Neuro General: Yes oriented to person, Yes oriented to place, Yes oriented to time, Yes normal cognition and Yes no meningeal signs Cranial Nerves: Yes CN's II-XII intact bilaterally Other: Motor: Strength is normal, 5/5, throughout all muscle groups of the bilateral upper and lower extremities to direct confrontation. Sensory: Sensation is intact to light touch throughout the upper and lower extremities bilaterally. Reflexes: deep tendon reflexes are difficult to elicit at the knees or ankles bilaterally. There is no clonus. In the arms the biceps and brachioradialis are 1 to 2+ and symmetrical. The triceps are difficult to elicit. There is no Motley's. Gait: Gait, station, and transfers are independent and steady for short periods of time and over short distances. Psych Appearance: grossly normal Mental status: Yes mental status grossly normal Mood: congruent mood Affect: Yes normal affect Speech/Movement: Normal speech and movement present Attitude: Yes cooperative Thought Content: Normal thought content present Assessment and Plan Assessment and plan (1) Myelopathy: Code(s): G95.9 - Disease of spinal cord, unspecified Status: Acute (2) Cervical spinal stenosis: Code(s): M48.02 - Spinal stenosis, cervical region Status: Acute Plan Leah is a 78-year-old female who presents for C3-4 anterior cervical diskectomy and fusion for cervical stenosis and myelopathy. I described to her again that operation, its risks, potential benefits, the operative and postoperative course in detail and answered all her questions personally. She indicates understanding and elects to proceed with that operation.
--- NOTE | 2024-08-12 11:26 | WPDHPUPDATE1 ---
History and Physical Update Update Date/Time: 08/12/24 11:26 History and Physical has been reviewed, including an updated exam of the patient. There are NO changes in the patient's condition. Risks, benefits, and alternatives have been discussed and questions answered. Patient agrees to proceed with procedure.
[2024-08-12] MEDS: ceFAZolin 2 GM/D5W 50 ML 2 GM/50 ML BAG IVPB (11:35)
[2024-08-12] MEDS: LIDO 1%/EPINEPHRINE 1:100,000 20 ML VIAL 10 ML INFILTRATE (12:06)
[2024-08-12] MEDS: fentaNYL CITRATE INJ (*CRX) 100 MCG/2 ML VIAL 25 MCG IV PUSH ×8 (13:13→14:06)
--- NOTE | 2024-08-12 13:26 | W.PM.PROC2 ---
Procedure Note - Detailed Date of Procedure 08/12/24 Pre-op Diagnosis cervical stenosis Post-op Diagnosis Same Procedure Performed C3-4 complete diskectomy and bilateral neural foraminotomy, C3-4 interbody arthrodesis utilizing peek interbody device and local autograft and magnetos, C3-4 anterior cervical plating with locking plate and screws Surgeon Mati Garcia MD Anesthesia General Description of Procedure Patient was brought to the operating room in the supine position, was sedated, intubated placed under general anesthesia in routine fashion. The area of operation on the right side of her neck was examined, marked for incision, marked prepped and draped in routine sterile fashion. Incision was marked from the midline over the medial aspect of the sternocleidomastoid muscle for fingerbreadths above the sternal notch. This area was injected with 0.5% lidocaine with [id number] epinephrine. Intravenous antibiotics given prior to incision. Incision was made with a 10 blade scalpel down to the platysma muscle. The skin was undermined the platysma muscle was divided longitudinally with its fibers using Metzenbaum scissors. Plane was dissected medial to the sternocleidomastoid muscle down to the anterior aspect of spine using the finger Metzenbaum scissors. A verifying x-rays obtained to verify the level of operation. At the C3-4 level the longus colli muscle was dissected free of the anterior aspect of the spine in a subperiosteal plane using Bovie cautery. Shadow Line retractor system was placed. Drexel pins were placed in C3 and C4 distraction placed over the disc space. The disc space was entered using a 15 blade scalpel cutting along the margin of the bone above and below. A curved curette and pituitary rongeur were used to remove cartilaginous endplate and disc material down to the annulus and ligament posteriorly. A Midas Tyrell drill was used to bur down the endplates to bleeding cortical flat surfaces as well as to begin a bony foraminotomy bilaterally. A curved curette and nerve hook were used to come through the annulus and ligament. A 2. Kerrison punch was then used to remove annulus, ligament, posterior osteophytes and complete a bony foraminotomy bilaterally. This was done until a nerve hook could be placed underneath the vertebral body above and below and out each foramen to confirm lack of compression. The disc space was sized a 5 mm peek interbody device was chosen and filled with local autograft bone and magnetos. It was then tamped into the interspace to 1-2 mm countersink. An anterior cervical plate was chosen placed in position and secured using 414 x 4 mm anterior screws advanced into the locking mechanism the plate to hand tightness. This was a 12 mm plate. Locking mechanism was engaged at each screw using the appropriate armored truck driver. Verifying x-rays obtained to verify good position of the instrumentation. The wound was copiously irrigated with bacitracin irrigation in all bleeding was stopped with bipolar and Bovie cautery and Gelfoam thrombin powder. The wound was then closed in layered fashion with 3-0 Vicryl interrupted sutures in the platysma muscle and the dermis. The skin was closed with a running 4-0 Monocryl subcuticular stitch and dressed with Dermabond. The patient was allowed to wake up in the operating room and was taken to the recovery room in stable condition. There were no immediate complications of this operation. All counts were reported correct the end the case. Blood loss was 25 cc. The patient was neurologically at her baseline postoperatively. CPT codes: 35642, 91070, 10191, 16360 Implants Peek interbody device, titanium anterior cervical plate and screws, magnetos Estimated Blood Loss 25 Complications None Condition Stable Disposition PACU [facility] Billing Surgery - Charge Forward: Surgery Billing
--- NOTE | 2024-08-12 15:18 | PCPTNOTE ---
Per RN hold on evaluation at this time, 315. Will follow.
[2024-08-12 15:27] LABS: Glucose Point of Care 83 mg/dl (65-105)
--- NOTE | 2024-08-12 15:58 | P.CONIM_ITS ---
Assessment and Plan Assessment and plan (1) Facial droop: Code(s): R29.810 - Facial weakness Status: Acute Assessment and Plan: New right facial droop and mild dysarthria at discovered at 3:15 p.m. on 08/12. Last known well at 11:30 a.m. on 08/12, prior to surgery. - admission for observation and telemetry - contacted [facility]. Spoke with [facility]. The patient is not a candidate for thrombolytics or thrombectomy due to timeframe and no large vessel occlusion on CTA - Head CT: Normal aging brain. No acute intracranial process. - CTA head/neck: 0% stenosis of the right and left carotid bulbs relative to normal distal artery lumen diameter (NASCET criteria). Unremarkable cerebral CT angiogram with no hemodynamically significant stenosis, aneurysm or thrombosis. - neurology consulted - brain MRI w/wo ordered - echo w/Bubble ordered - neuro checks Q4 - speech/swallow eval, NPO until completed - monitor daily labs, check lipid panel and A1C - start Atorvastatin 40 mg PO, Plavix 75 mg PO, ASA 81 mg - start dexamethasone 4 mg q.6 while inpatient for possible concern for Neff's palsy - consider 30 day event monitoring at discharge DDx: CVA, facial nerve palsy, TIA, Neff's Palsy. (2) Cervical spinal stenosis: Code(s): M48.02 - Spinal stenosis, cervical region Status: Acute Assessment and Plan: - underwent a C3-4 complete diskectomy and bilateral neural foraminotomy, C3-4 interbody arthrodesis utilizing peek interbody device and local autograft and magnetos, C3-4 anterior cervical plating with locking plate and screws. Per surgeon, uneventful. - primary management via neurosurgical team - analgesics p.r.n. Plan Diet: ice chips and meds, ST eval in place GI Prophylaxis: Not currently indicated DVT Prophylaxis: SCDs Lines: peripheral Code Status: full code HPI Date of Consult Consult date: 08/12/24 Requesting Physician: Mati Garcia MD Primary Care Provider: Eric Clark, Consult Narrative Reason for consult: Facial Droop Narrative: 78 y/o F with PMH of cervical spinal stenosis hypertension, blood clots, and pulmonary embolism presented here for surgical management of her cervical spine stenosis. She underwent a C3-4 anterior cervical diskectomy and fusion on 08/12. Preop she reported specific muscle group weakness and dermatomal numbness to her neurosurgeon. Which prompted her to seek surgical management. The patient's last known well was at 11:30 a.m. Discovery of symptoms at 3:15 p.m. Bedside RN noted a right facial droop. This is accompanied by mild dysarthria. The patient denies any previous history of stroke. She does report chronic difficulty with balance due to her left knee. The patient denies any focal numbness, focal weakness, changes in vision, dizziness, or dysphagia. Preop VS: 97.9? F, HR 55, R 16, 146/77, and 98% on RA. Preop workup: No leukocytosis, hemoglobin 11.9, normal coags, creatinine 1.07 and GFR 50 (at baseline), UA showed possible infection however UC was negative. Review of Systems Review of Systems: All systems reviewed & are unremarkable except as noted in HPI and below PMFSH Past Medical History Medical History Depression Anxiety Anemia RLS (restless legs syndrome) Myelopathy Pulmonary embolism History of blood clots 2019 Hypertension Cataracts, both eyes Gallbladder & bile duct stone with obstruction Surgical History Surgical History History of cataract extraction with lens replacement History of cholecystectomy H/O left wrist surgery fx fixation History of left hip replacement History of right hip replacement S/P gastroplasty H/O abdominal hysterectomy History of tonsillectomy Family History Family History Sibling Carcinoma of colon Social History Social History Smoking packs per day: 1 Smoking cigarettes per day: 20.0 Years smoked: 1 Smoking pack-years: 1.00 Smoking status: Former smoker Tobacco type: cigarettes Smoking end date: 08/03/1965 Alcohol intake: never Alcohol use details: very rarely Substance use: never Do You Feel Safe in your Home?: Yes Lack of Transportation: No Lack of Food: Never True Current Housing: I Have Housing Concerned About Future Housing: No Difficulty Paying Gas/Electric Bills: No Difficulty Paying for Meds: No Currently Unemployed: No Education: High School Diploma/GED Difficulty w/ Childcare or Family Care: No Living arrangements: with family Additional living arrangements comments: [place] Spiritual care concerns: No Meds Home Medications and Allergies Home Medications ?Medication ?Instructions ?Recorded ?Confirmed ?Type bupropion HCl 150 mg 24 hr tablet, 150 mg PO QAM 11/01/20 08/12/24 History extended release amlodipine 2.5 mg tablet 2.5 mg PO DAILY 11/12/23 08/12/24 History escitalopram oxalate 10 mg tablet 10 mg PO DAILY 11/12/23 08/12/24 History levothyroxine 100 mcg tablet 100 mcg PO DAILY 11/12/23 08/12/24 History (Synthroid) omeprazole 20 mg capsule,delayed 20 mg PO BID 11/12/23 08/12/24 History release pramipexole 0.25 mg tablet 0.25 mg PO QHS 11/12/23 08/12/24 History pregabalin 75 mg capsule 75 mg PO HS 11/12/23 08/12/24 History tramadol 50 mg tablet 50 mg PO Q6H PRN Pain 11/12/23 08/02/24 History acetaminophen 650 mg 1,300 mg PO Q8H PRN pain 08/02/24 08/02/24 History tablet,extended release (8 Hour Pain Reliever) ascorbic acid (vitamin C) 500 mg 500 mg PO DAILY 08/02/24 08/12/24 History capsule calcium carb-ergocalciferol (vit 1 tablet PO .PO 08/02/24 08/12/24 History D2) 600 mg calcium-200 unit tablet cholecalciferol (vitamin D3) 50 2,000 unit PO DAILY 08/02/24 08/12/24 History mcg (2,000 unit) capsule collagen,hydrolysate 500 mg-biotin 1 cap PO DAILY 08/02/24 08/12/24 History 800 mcg-ascorbic acid 50 mg capsule (Collagen 1500 Plus C) cranberry extract 250 mg tablet 250 mg PO BID 08/02/24 08/12/24 History cyanocobalamin (vitamin B-12) 2,000 mcg PO DAILY 08/02/24 08/12/24 History 1,000 mcg capsule cyclosporine 0.05 % eye drops in a 1 drp EACH EYE Q12H 08/02/24 08/12/24 History dropperette (Restasis) propranolol 60 mg tablet 30 mg PO Q12H 08/02/24 08/12/24 History pyridoxine (vitamin B6) 100 mg 100 mg PO DAILY 08/02/24 08/12/24 History tablet trazodone 100 mg tablet 150 mg PO HS 08/02/24 08/12/24 History turmeric 400 mg capsule 1,500 mg PO DAILY 08/02/24 08/12/24 History Allergies Allergy/AdvReac Type Severity Reaction Status Date / Time codeine AdvReac Intermediate gastric Verified 08/12/24 10:10 distress lisinopril AdvReac Intermediate Itching Verified 08/12/24 10:10 Sulfa (Sulfonamide AdvReac Intermediate Gastrointestinal Verified 08/12/24 10:10 Antibiotics) Upset Vital Signs Vital Signs - 24 hr 08/12/24 09:00 08/12/24 13:03 08/12/24 13:15 Temperature 98.0 F 97.9 F Pulse Rate 57 L 75 65 Respiratory Rate 18 15 14 Blood Pressure 144/52 H 145/62 H 132/64 Pulse Oximetry 100 94 99 Oxygen Delivery Room Air Simple Face Mask Room Air Oxygen Flow Rate 8 08/12/24 13:30 08/12/24 13:45 08/12/24 14:00 Temperature Pulse Rate 66 76 61 Respiratory Rate 13 23 H 11 L Blood Pressure 117/73 122/54 L 135/60 Pulse Oximetry 96 90 99 Oxygen Delivery Room Air Room Air Nasal Cannula Oxygen Flow Rate 2 08/12/24 14:15 08/12/24 14:30 08/12/24 15:00 Temperature 97.6 F Pulse Rate 61 60 67 Respiratory Rate 19 18 12 Blood Pressure 133/59 L 140/58 L 119/64 Pulse Oximetry 97 98 100 Oxygen Delivery Nasal Cannula Nasal Cannula Oxygen Flow Rate 2 2 Exam Narrative: right facial droop, tongue maybe weak on right. no obvious uvular divation. mild dyarthria without aphasia. no other deficits. Const: General: comfortable and no acute distress Other: , female, nontoxic appearance HENMT: Face/Nose/Sinus: Normal nares present Mouth: Yes moist mucous membranes Eyes: General: appearance normal, both eyes and all related structures Sclera: sclerae normal Pupils: Equal, round and reactive pupils present EOM: EOMs intact bilaterally Neck: Other: Postsurgical incision to right neck near sternal notch. No signs of bleeding, infection, or swelling. Resp: Effort & Inspection: normal respiratory effort Auscultation: clear to auscultation bilaterally Cardio: Rate: regular rate Rhythm: regular rhythm Other: S1-S2 present without murmur, rub, ectopy GI: Other: Abdomen soft, nondistended, nontender. Normoactive bowel sounds in all quadrants. Urinary Catheter: Urinary Catheter: patent and draining Skin: General skin exam: normal color and no rashes or lesions noted Other: Postoperative incision to neck, CDI. Neuro: Other: + dysarthria, right facial droop, possib le right palatal weakness. NIHSS: 3 (2 for facial droop, 1 for dysarthria). + 5 in all extremities. No ataxia. PERRLA. A&O x4. Extrem: General: normal to inspection Psych: Mental Status: mental status grossly normal Affect: normal affect Other: Good insight and judgment, pleasant Quality VTE Prophylaxis VTE prophylaxis: mechanical ordered Hospitalist [facility] Advance Care Plan I have confirmed that the patient's Advanced Care Plan is present, code status is documented, or surrogate decision maker is listed in patient medical record.: Yes Medication Reconciliation I have utilized all available resources to obtain, update and review the patients current medications (includes all prescriptions, OTC, herbals, cannabis, and nutritional supplements).: Yes
--- NOTE | 2024-08-12 16:57 | SUR.PHASEI ---
3716 PATIENT STATES SHE FEELS STIFF LATERAL RIGHT OF ANTERIOR NECK INCISION. DR. BRICE AT BEDSIDE, AWARE. PATIENT TALKATIVE WITH THIS RN AND DR. BRICE.
[2024-08-12] MEDS: HYDROcodone/acetaminophen (*CRX) 5-325 MG TABLET 1 TAB PO (17:12)
[2024-08-12] MEDS: CYCLOBENZAPRINE HCL 10 MG TABLET PO ×2 (17:12→21:04)
--- NOTE | 2024-08-12 17:52 | PC.NURSE ---
Patient arrived from PACU at 1450. Noted right lower mouth facial droop as patient arrived to unit. Patient and family deny history of droop. VS stable, full Neurological assessment done and notified Dr. Garcia of findings. Orders to treat it like a stroke and consult Hospitalist Code stroke called by this RN at 1521. See Code Stroke flowsheet. 1700- PT reporting 7/10 pain in neck, incision area noted to have increased swelling. Patient given pain pill , noted to have trouble swallowing, pill got stuck and she then tells this RN the last 2 months she has had problems swallowing pills. Angeline notified of changes and swallowing issues, states she will come reevaluate. Teaching done on symptoms to report. Patient denies breathing difficulties at this time.
--- NOTE | 2024-08-12 18:18 | WPDNEURCNPN ---
Assessment and Plan Assessment and plan (1) Facial droop: Code(s): R29.810 - Facial weakness Status: Acute Assessment and Plan: Currently patient does not appear to have any focal deficit. Previously after the surgery patient noted to have some asymmetry of the face. MRI of the brain and echocardiogram has been ordered and will be followed up. (2) Cervical spinal stenosis: Code(s): M48.02 - Spinal stenosis, cervical region Status: Acute Plan I did not find any evidence for any weakness in the neurological examination. MRI of the brain should be followed up. If she has any further recurrence of the facial weakness or any other neurologic issues which should be glad to evaluate her from the Neurology point of view. Consult date: 08/12/24 HPI: Leah Andujar is a 78 year old female history of surgery on cervical spine today. During the postoperative. Or while on the floor she was noted to have some asymmetry of the face suggestive of right facial weakness. A code stroke was called. Patient underwent CT scan of brain and CT angiogram of the head and neck which did not show any significant abnormalities. There is no evidence for large vessel occlusion. Patient denies any history of previous stroke. She denies any headache or any other symptoms except for some discomfort where she had the surgery today and also some difficulty with pain in the throat most likely due to anesthesia procedures. No other symptoms. She denies any weakness in upper lower limbs. Review of Systems Review of Systems: Patient is under care of for tremor that started from her legs and now involve her hands. All systems reviewed & are unremarkable except as noted in HPI and below PMFSH Past Medical History Medical History Depression Anxiety Anemia RLS (restless legs syndrome) Myelopathy Pulmonary embolism History of blood clots 2019 Hypertension Cataracts, both eyes Gallbladder & bile duct stone with obstruction Surgical History Surgical History History of cataract extraction with lens replacement History of cholecystectomy H/O left wrist surgery fx fixation History of left hip replacement History of right hip replacement S/P gastroplasty H/O abdominal hysterectomy History of tonsillectomy Family History Family History Sibling Carcinoma of colon Social History Social History Smoking packs per day: 1 Smoking cigarettes per day: 20.0 Years smoked: 1 Smoking pack-years: 1.00 Smoking status: Former smoker Tobacco type: cigarettes Smoking end date: 08/03/1965 Alcohol intake: never Alcohol use details: very rarely Substance use: never Do You Feel Safe in your Home?: Yes Lack of Transportation: No Lack of Food: Never True Current Housing: I Have Housing Concerned About Future Housing: No Difficulty Paying Gas/Electric Bills: No Difficulty Paying for Meds: No Currently Unemployed: No Education: Decline to Answer Difficulty w/ Childcare or Family Care: No Living arrangements: with family Additional living arrangements comments: [facility] Spiritual care concerns: No Meds Home Medications and Allergies Home Medications ?Medication ?Instructions ?Recorded ?Confirmed ?Type bupropion HCl 150 mg 24 hr tablet, 150 mg PO QAM 11/01/20 08/12/24 History extended release amlodipine 2.5 mg tablet 2.5 mg PO DAILY 11/12/23 08/12/24 History escitalopram oxalate 10 mg tablet 10 mg PO DAILY 11/12/23 08/12/24 History levothyroxine 100 mcg tablet 100 mcg PO DAILY 11/12/23 08/12/24 History (Synthroid) omeprazole 20 mg capsule,delayed 20 mg PO BID 11/12/23 08/12/24 History release pramipexole 0.25 mg tablet 0.25 mg PO QHS 11/12/23 08/12/24 History pregabalin 75 mg capsule 75 mg PO HS 11/12/23 08/12/24 History tramadol 50 mg tablet 50 mg PO Q6H PRN Pain 11/12/23 08/02/24 History acetaminophen 650 mg 1,300 mg PO Q8H PRN pain 08/02/24 08/02/24 History tablet,extended release (8 Hour Pain Reliever) ascorbic acid (vitamin C) 500 mg 500 mg PO DAILY 08/02/24 08/12/24 History capsule calcium carb-ergocalciferol (vit 1 tablet PO .PO 08/02/24 08/12/24 History D2) 600 mg calcium-200 unit tablet cholecalciferol (vitamin D3) 50 2,000 unit PO DAILY 08/02/24 08/12/24 History mcg (2,000 unit) capsule collagen,hydrolysate 500 mg-biotin 1 cap PO DAILY 08/02/24 08/12/24 History 800 mcg-ascorbic acid 50 mg capsule (Collagen 1500 Plus C) cranberry extract 250 mg tablet 250 mg PO BID 08/02/24 08/12/24 History cyanocobalamin (vitamin B-12) 2,000 mcg PO DAILY 08/02/24 08/12/24 History 1,000 mcg capsule cyclosporine 0.05 % eye drops in a 1 drp EACH EYE Q12H 08/02/24 08/12/24 History dropperette (Restasis) propranolol 60 mg tablet 30 mg PO Q12H 08/02/24 08/12/24 History pyridoxine (vitamin B6) 100 mg 100 mg PO DAILY 08/02/24 08/12/24 History tablet trazodone 100 mg tablet 150 mg PO HS 08/02/24 08/12/24 History turmeric 400 mg capsule 1,500 mg PO DAILY 08/02/24 08/12/24 History Allergies Allergy/AdvReac Type Severity Reaction Status Date / Time codeine AdvReac Intermediate gastric Verified 08/12/24 10:10 distress lisinopril AdvReac Intermediate Itching Verified 08/12/24 10:10 Sulfa (Sulfonamide AdvReac Intermediate Gastrointestinal Verified 08/12/24 10:10 Antibiotics) Upset Vital Signs Vital Signs - 24 hr 08/12/24 09:00 08/12/24 13:03 08/12/24 13:15 Temperature 98.0 F 97.9 F Pulse Rate 57 L 75 65 Respiratory Rate 18 15 14 Blood Pressure 144/52 H 145/62 H 132/64 Pulse Oximetry 100 94 99 Oxygen Delivery Room Air Simple Face Mask Room Air Oxygen Flow Rate 8 08/12/24 13:30 08/12/24 13:45 08/12/24 14:00 Temperature Pulse Rate 66 76 61 Respiratory Rate 13 23 H 11 L Blood Pressure 117/73 122/54 L 135/60 Pulse Oximetry 96 90 99 Oxygen Delivery Room Air Room Air Nasal Cannula Oxygen Flow Rate 2 08/12/24 14:15 08/12/24 14:30 08/12/24 15:00 Temperature 97.6 F Pulse Rate 61 60 67 Respiratory Rate 19 18 12 Blood Pressure 133/59 L 140/58 L 119/64 Pulse Oximetry 97 98 100 Oxygen Delivery Nasal Cannula Nasal Cannula Oxygen Flow Rate 2 2 08/12/24 16:51 08/12/24 17:18 08/12/24 17:47 Temperature 96.5 F L 96.4 F L Pulse Rate 71 57 L 68 Respiratory Rate 18 18 17 Blood Pressure 127/65 115/77 138/70 Pulse Oximetry 100 97 96 Oxygen Delivery Nasal Cannula Oxygen Flow Rate 2 Exam Const: General: cooperative, well developed and alert Orientation/consciousness: patient oriented x3 HENMT: Head: atraumatic Other: Bandages noted to the right of the midline in her neck. She had the surgery today on cervical spine Eyes: Alignment and Position: position normal Pupils: Equal, round and reactive pupils present EOM: EOMs intact bilaterally Resp: Effort & Inspection: normal respiratory effort Neuro: General: patient oriented x3 Cranial nerves: Yes CN's II-XII intact bilaterally, Yes facial sensation intact/muscles of mastication intact, Yes Equal, round and reactive pupils present, Yes facial symmetry and Yes Midline tongue present Cognition (Neuro): normal cognition Speech: normal speech Motor exam (neuro): 5/5 motor strength present throughout Sensory Exam: normal sensation Coordination: [id number] test normal and Normal rapid alternating movements of the distal upper extremity present (Neuro)
[2024-08-12] MEDS: dexAMETHasone SOD PHOS INJ 4 MG/ML VIAL IV PUSH (20:02)
[2024-08-12] MEDS: DOCUSATE SODIUM 100 MG CAPSULE PO (20:46)
[2024-08-12] MEDS: PANTOPRAZOLE 40 MG TABLET PO (20:46)
[2024-08-12] MEDS: PRAMIPEXOLE 0.25 MG TABLET PO (20:46)
[2024-08-12] MEDS: cycloSPORINE 0.4 ML OPHTH SOLUTION 1 DROP EACH EYE (20:47)
[2024-08-12] MEDS: PROPRANOLOL HCL 10 MG TABLET 30 MG PO (20:47)
[2024-08-12] MEDS: traZODone HCL 50 MG TABLET 150 MG PO (20:47)
[2024-08-12] MEDS: PREGABALIN (*CRX) 75 MG CAPSULE PO (20:47)
[2024-08-12] MEDS: HYDROcodone/acetaminophen (*CRX) 10-325 MG TABLET 1 TAB PO ×2 (21:04→21:05)
[2024-08-13] VITALS (7 sets, daily range): BP systolic 108–149; BP diastolic 44–69; PULSE 56–69; RESP 12–20; TEMP 36.1–36.6; O2SAT 94–100
[2024-08-13] MEDS: dexAMETHasone SOD PHOS INJ 4 MG/ML VIAL IV PUSH ×3 (01:33→13:24)
[2024-08-13] MEDS: KCL 20 MEQ/D5/0.45% SOD CHL 1,000 ML 100 ML IV CONT (06:12)
[2024-08-13] MEDS: LEVOTHYROXINE SODIUM 100 MCG TABLET PO (06:12)
--- NOTE | 2024-08-13 08:02 | PCSTNOTE ---
Please refer to the Bedside Swallow Evaluation in the EMR. Please note, silent aspiration cannot be ruled out at bedside. The above pleasant and cooperative pt was seen for a swallow evaluation at the bedside. The pt is s/p a cervical surgery and then had a questionable CVA post-op due to new facial weakness; at this time her CT scan is negative but the MRI is pending. The pt was positioned upright in the bed. She was alert & oriented x 4 and able to follow commands. She is currently NPO awaiting a swallow evaluation. Pt did state that before the surgery it did occasionally feel like food/pills were getting stuck but she admitted that she takes multiple pills at a time. Oral mucosa is dry. Her natural dentition is in fair/good condition; Oral peripheral exam revealed lingual and labial structures to be within functional limits; she was able to dry swallow on command and exhibited clear vocal quality. Speech intelligibility is clear at 100%. She was tested with pudding, applesauce, cracker, and thin liquids in controlled and uncontrolled amounts. The oral stages appeared WNL. No oral leakage, residue or pocketing was noted. During the pharyngeal stage, swallow reflex appeared prompt & laryngeal elevation adequate. No overt s/s of aspiration were exhibited; however, silent aspiration cannot be ruled out at bedside. General impression is normal swallow ability. Recommendation: regular diet and regular liquids. No further ST is warranted. Thank you for this referral.
[2024-08-13] MEDS: CLOPIDOGREL BISULFATE 75 MG TABLET PO (08:57)
[2024-08-13] MEDS: DOCUSATE SODIUM 100 MG CAPSULE PO (08:57)
[2024-08-13] MEDS: ATORVASTATIN 40 MG TABLET PO (08:57)
[2024-08-13] MEDS: ASCORBIC ACID 500 MG TABLET PO (08:57)
[2024-08-13] MEDS: buPROPion HCL XL (24 HR) 150 MG TABCR PO (08:57)
[2024-08-13] MEDS: CHOLECALCIFEROL 1,000 UNITS TABLET 2000 UNITS PO (08:57)
[2024-08-13] MEDS: PANTOPRAZOLE 40 MG TABLET PO (08:57)
[2024-08-13] MEDS: PYRIDOXINE HCL 50 MG TABLET 100 MG PO (08:57)
[2024-08-13] MEDS: CYANOCOBALAMIN 1,000 MCG TABLET 2000 MCG PO (08:57)
[2024-08-13] MEDS: ASPIRIN 81 MG ENTERIC TABLET PO (08:58)
[2024-08-13] MEDS: ESCITALOPRAM OXALATE 10 MG TABLET PO (08:58)
[2024-08-13] MEDS: PROPRANOLOL HCL 10 MG TABLET 30 MG PO (09:05)
[2024-08-13] MEDS: cycloSPORINE 0.4 ML OPHTH SOLUTION 1 DROP EACH EYE (09:05)
--- NOTE | 2024-08-13 09:38 | PM.IMCN ---
Assessment and Plan Assessment and plan (1) Facial droop: Code(s): R29.810 - Facial weakness Status: Acute Assessment and Plan: New right facial droop and mild dysarthria at discovered at 3:15 p.m. on 08/12. Last known well at 11:30 a.m. on 08/12, prior to surgery. - admission for observation and telemetry - contacted [facility]. Spoke with Duc PLAZA. The patient is not a candidate for thrombolytics or thrombectomy due to timeframe and no large vessel occlusion on CTA - Head CT: Normal aging brain. No acute intracranial process. - CTA head/neck: 0% stenosis of the right and left carotid bulbs relative to normal distal artery lumen diameter (NASCET criteria). Unremarkable cerebral CT angiogram with no hemodynamically significant stenosis, aneurysm or thrombosis. - neurology consulted - brain MRI w/wo ordered - echo w/Bubble ordered - neuro checks Q4 - speech/swallow eval, NPO until completed - monitor daily labs, check lipid panel and A1C - start Atorvastatin 40 mg PO, Plavix 75 mg PO, ASA 81 mg - start dexamethasone 4 mg q.6 while inpatient for possible concern for Neff's palsy - consider 30 day event monitoring at discharge DDx: CVA, facial nerve palsy, TIA, Neff's Palsy. speech cleared pt- she did well, no choking episodes her symptoms resolved (2) Cervical spinal stenosis: Code(s): M48.02 - Spinal stenosis, cervical region Status: Acute Assessment and Plan: - underwent a C3-4 complete diskectomy and bilateral neural foraminotomy, C3-4 interbody arthrodesis utilizing peek interbody device and local autograft and magnetos, C3-4 anterior cervical plating with locking plate and screws. Per surgeon, uneventful. - primary management via neurosurgical team - analgesics p.r.n. Plan will hold amlodipine for now as BP a bit softer. Diet: ice chips and meds, ST eval in place GI Prophylaxis: Not currently indicated DVT Prophylaxis: SCDs Lines: peripheral Code Status: full code HPI Date of Consult Consult date: 08/13/24 Requesting Physician: Mati Garcia MD Primary Care Provider: Eric Clark, Consult Narrative Reason for consult: med mngmnt Narrative: 78 y/o F with PMH of cervical spinal stenosis hypertension, blood clots, and pulmonary embolism presented here for surgical management of her cervical spine stenosis. She underwent a C3-4 anterior cervical diskectomy and fusion on 08/12. Preop she reported specific muscle group weakness and dermatomal numbness to her neurosurgeon. Which prompted her to seek surgical management. The patient's last known well was at 11:30 a.m. Discovery of symptoms at 3:15 p.m. Bedside RN noted a right facial droop. This is accompanied by mild dysarthria. The patient denies any previous history of stroke. She does report chronic difficulty with balance due to her left knee. The patient denies any focal numbness, focal weakness, changes in vision, dizziness, or dysphagia. Preop VS: 97.9? F, HR 55, R 16, 146/77, and 98% on RA. Preop workup: No leukocytosis, hemoglobin 11.9, normal coags, creatinine 1.07 and GFR 50 (at baseline), UA showed possible infection however UC was negative. Pt is seen and examined. Speech was consulted and pt did well, no deficit noted. MRI is ordered-pending. Her symptoms resolved. Review of Systems Review of Systems: All systems reviewed & are unremarkable except as noted in HPI and below PMFSH Past Medical History Medical History Depression Anxiety Anemia RLS (restless legs syndrome) Myelopathy Pulmonary embolism History of blood clots 2019 Hypertension Cataracts, both eyes Gallbladder & bile duct stone with obstruction Surgical History Surgical History History of cataract extraction with lens replacement History of cholecystectomy H/O left wrist surgery fx fixation History of left hip replacement History of right hip replacement S/P gastroplasty H/O abdominal hysterectomy History of tonsillectomy Family History Family History Sibling Carcinoma of colon Social History Social History Smoking packs per day: 1 Smoking cigarettes per day: 20.0 Years smoked: 1 Smoking pack-years: 1.00 Smoking status: Former smoker Tobacco type: cigarettes Smoking end date: 08/03/1965 Alcohol intake: never Alcohol use details: very rarely Substance use: never Do You Feel Safe in your Home?: Yes Lack of Transportation: No Lack of Food: Never True Current Housing: I Have Housing Concerned About Future Housing: No Difficulty Paying Gas/Electric Bills: No Difficulty Paying for Meds: No Currently Unemployed: No Education: Decline to Answer Difficulty w/ Childcare or Family Care: No Living arrangements: with family Additional living arrangements comments: [facility] Spiritual care concerns: No Meds Home Medications and Allergies Home Medications ?Medication ?Instructions ?Recorded ?Confirmed ?Type bupropion HCl 150 mg 24 hr tablet, 150 mg PO QAM 11/01/20 08/12/24 History extended release amlodipine 2.5 mg tablet 2.5 mg PO DAILY 11/12/23 08/12/24 History escitalopram oxalate 10 mg tablet 10 mg PO DAILY 11/12/23 08/12/24 History levothyroxine 100 mcg tablet 100 mcg PO DAILY 11/12/23 08/12/24 History (Synthroid) omeprazole 20 mg capsule,delayed 20 mg PO BID 11/12/23 08/12/24 History release pramipexole 0.25 mg tablet 0.25 mg PO QHS 11/12/23 08/12/24 History pregabalin 75 mg capsule 75 mg PO HS 11/12/23 08/12/24 History tramadol 50 mg tablet 50 mg PO Q6H PRN Pain 11/12/23 08/02/24 History acetaminophen 650 mg 1,300 mg PO Q8H PRN pain 08/02/24 08/02/24 History tablet,extended release (8 Hour Pain Reliever) ascorbic acid (vitamin C) 500 mg 500 mg PO DAILY 08/02/24 08/12/24 History capsule calcium carb-ergocalciferol (vit 1 tablet PO .PO 08/02/24 08/12/24 History D2) 600 mg calcium-200 unit tablet cholecalciferol (vitamin D3) 50 2,000 unit PO DAILY 08/02/24 08/12/24 History mcg (2,000 unit) capsule collagen,hydrolysate 500 mg-biotin 1 cap PO DAILY 08/02/24 08/12/24 History 800 mcg-ascorbic acid 50 mg capsule (Collagen 1500 Plus C) cranberry extract 250 mg tablet 250 mg PO BID 08/02/24 08/12/24 History cyanocobalamin (vitamin B-12) 2,000 mcg PO DAILY 08/02/24 08/12/24 History 1,000 mcg capsule cyclosporine 0.05 % eye drops in a 1 drp EACH EYE Q12H 08/02/24 08/12/24 History dropperette (Restasis) propranolol 60 mg tablet 30 mg PO Q12H 08/02/24 08/12/24 History pyridoxine (vitamin B6) 100 mg 100 mg PO DAILY 08/02/24 08/12/24 History tablet trazodone 100 mg tablet 150 mg PO HS 08/02/24 08/12/24 History turmeric 400 mg capsule 1,500 mg PO DAILY 08/02/24 08/12/24 History Allergies Allergy/AdvReac Type Severity Reaction Status Date / Time codeine AdvReac Intermediate gastric Verified 08/12/24 10:10 distress lisinopril AdvReac Intermediate Itching Verified 08/12/24 10:10 Sulfa (Sulfonamide AdvReac Intermediate Gastrointestinal Verified 08/12/24 10:10 Antibiotics) Upset Vital Signs Vital Signs - 24 hr 08/12/24 13:03 08/12/24 13:15 08/12/24 13:30 Temperature 97.9 F Pulse Rate 75 65 66 Respiratory Rate 15 14 13 Blood Pressure 145/62 H 132/64 117/73 Pulse Oximetry 94 99 96 Oxygen Delivery Simple Face Mask Room Air Room Air Oxygen Flow Rate 8 08/12/24 13:45 08/12/24 14:00 08/12/24 14:15 Temperature Pulse Rate 76 61 61 Respiratory Rate 23 H 11 L 19 Blood Pressure 122/54 L 135/60 133/59 L Pulse Oximetry 90 99 97 Oxygen Delivery Room Air Nasal Cannula Nasal Cannula Oxygen Flow Rate 2 2 08/12/24 14:30 08/12/24 14:50 08/12/24 15:00 Temperature 97.6 F Pulse Rate 60 67 Respiratory Rate 18 12 Blood Pressure 140/58 L 119/64 Pulse Oximetry 98 92 100 Oxygen Delivery Nasal Cannula Nasal Cannula Oxygen Flow Rate 2 2 08/12/24 16:51 08/12/24 17:18 08/12/24 17:47 Temperature 96.5 F L 96.4 F L Pulse Rate 71 57 L 68 Respiratory Rate 18 18 17 Blood Pressure 127/65 115/77 138/70 Pulse Oximetry 100 97 96 Oxygen Delivery Nasal Cannula Oxygen Flow Rate 2 08/12/24 20:05 08/12/24 20:47 08/12/24 23:50 Temperature 97.9 F 97.5 F L Pulse Rate 65 60 62 Respiratory Rate 18 18 Blood Pressure 144/65 H 127/60 Pulse Oximetry 95 96 Oxygen Delivery Oxygen Flow Rate 08/13/24 04:05 08/13/24 07:56 08/13/24 08:13 Temperature 97.9 F 97.0 F L Pulse Rate 66 69 Respiratory Rate 18 20 Blood Pressure 149/69 H 130/48 L Pulse Oximetry 95 95 Oxygen Delivery Room Air Oxygen Flow Rate 08/13/24 08:27 08/13/24 09:05 Temperature Pulse Rate 57 L 58 L Respiratory Rate 20 Blood Pressure Pulse Oximetry 95 Oxygen Delivery Room Air Oxygen Flow Rate Exam Narrative: right facial droop, tongue maybe weak on right. no obvious uvular divation. mild dyarthria without aphasia. no other deficits. Const: General: comfortable and no acute distress Other: , female, nontoxic appearance HENMT: Face/Nose/Sinus: Normal nares present Mouth: Yes moist mucous membranes Eyes: General: appearance normal, both eyes and all related structures Sclera: sclerae normal Pupils: Equal, round and reactive pupils present EOM: EOMs intact bilaterally Neck: Other: Postsurgical incision to right neck near sternal notch. No signs of bleeding, infection, or swelling. Resp: Effort & Inspection: normal respiratory effort Auscultation: clear to auscultation bilaterally Cardio: Rate: regular rate Rhythm: regular rhythm Other: S1-S2 present without murmur, rub, ectopy GI: Other: Abdomen soft, nondistended, nontender. Normoactive bowel sounds in all quadrants. Urinary Catheter: Urinary Catheter: patent and draining Skin: General skin exam: normal color and no rashes or lesions noted Other: Postoperative incision to neck, CDI. Neuro: Cranial nerves: Yes Equal, round and reactive pupils present Other: + dysarthria, right facial droop, possible right palatal weakness. NIHSS: 3 (2 for facial droop, 1 for dysarthria). + 5 in all extremities. No ataxia. PERRLA. A&O x4. Extrem: General: normal to inspection Psych: Mental Status: mental status grossly normal Affect: normal affect Other: Good insight and judgment, pleasant Quality VTE Prophylaxis VTE prophylaxis: mechanical ordered
[2024-08-13] MEDS: HYDROcodone/acetaminophen (*CRX) 10-325 MG TABLET 1 TAB PO ×2 (10:23→16:00)
[2024-08-13] MEDS: CALCIUM/VITAMIN D 500 MG/5 MCG (200 I.U.) TABLET PO (13:24)
--- NOTE | 2024-08-13 17:06 | ECHO_ITS ---
Patient Info Name: Leah Andujar Age: 78 years : 1945 Gender: Female HR: 61 bpm BP: 149 / 69 mmHg Technical Quality: Good Exam Date: 08/13/2024 2:59 PM Exam Location: Echo Lab Patient Status: Outpatient Admit Date: 08/12/2024 Staff Ordering Physician: Angeline Gracia APRN Linter Operator: Ana Laura Dick RDCS Attending Provider: Mati Garcia MD Referring Physician: Basil YUN; Exam Type: CA echo doppler w bubble study Study Info Indications - Stroke work up Complete two-dimensional, color flow and Doppler transthoracic echocardiogram is performed with agitated saline. Contrast/Agitated Saline Contrast/Ag. Saline: Agitated Saline Amount: 18.00 ml Existing IV Access: Yes IV Access Condition: patent with no signs of infiltration Summary 1. Left ventricular chamber dimension is normal. 2. Left ventricular systolic function is normal, estimated at 60-65%. 3. The left ventricular diastolic function is grade I diastolic dysfunction. 4. E/e' 9 is minimally elevated. 5. Left atrial chamber dimension is mildly enlarged. 6. There is mild aortic valve sclerosis. 7. There is mild tricuspid valve regurgitation. 8. Mild pulmonary hypertension, estimated pulmonary arterial systolic pressure is 46 mmHg. Left Ventricle E/e' 9 is minimally elevated. Left ventricular chamber dimension is normal. Left ventricular systolic function is normal, estimated at 60-65%. The left ventricular diastolic function is grade I diastolic dysfunction. Right Ventricle Right ventricular systolic function is normal and with normal TAPSE 2.2 cm. Right ventricular chamber dimension is normal. Left Atria Left atrial chamber dimension is mildly enlarged. Right Atria Right atrial chamber dimension is normal. Atrial Septum Intact interatrial septum visualized by 2D and agitated saline imaging. Aortic Valve The aortic valve is trileaflet. There is mild aortic valve sclerosis. There is no aortic valve stenosis. There is no aortic valve regurgitation. Pulmonic Valve There is no pulmonic regurgitation. Mitral Valve There is no mitral valve stenosis. There is no mitral valve regurgitation. Tricuspid Valve There is mild tricuspid valve regurgitation. Mild pulmonary hypertension, estimated pulmonary arterial systolic pressure is 46 mmHg. Pericardium/Pleural There is no pericardial effusion. Inferior Vena Cava Normal inferior vena cava with >50% collapse upon inspiration consistent with normal right atrial pressure, 5 mmHg. Aorta The aortic root size at the sinus of Valsalva is normal. Left Ventricular Outflow Tract Name Value Normal LVOT 2D LVOT Diameter 1.9 cm LVOT Doppler LVOT Peak Gradient 4 mmHg LVOT Mean Gradient 2 mmHg LVOT VTI 23 cm LVOT VTI/AV VTI Ratio 0.7 LVOT Stroke Volume 66 ml LVOT CO 11.5 l/min Pulmonic Valve Name Value Normal PV Doppler PV Peak Gradient 3 mmHg Mitral Valve Name Value Normal MV Doppler MV Decel [place] 310 cm/s2 MV PHT 89 ms MV Area (PHT) 2.5 cm2 4.0-5.0 MV Diastolic Function MV E Peak Velocity 95 cm/s MV A Peak Velocity 104 cm/s MV E/A 0.9 MV Decel Time 307 ms MV Annular TDI MV E/e' (Septal) 10.3 <=8.0 MV E/e' (Lateral) 8.3 <=8.0 MV E/e' (Average) 9.3 Tricuspid Valve Name Value Normal TV Regurgitation Doppler TR Peak Velocity 320 cm/s TR Peak Gradient 40 mmHg Estimated PAP/RSVP RA Pressure 5 mmHg <=5 PA Systolic Pressure 46 mmHg <36 RV Systolic Pressure 46 mmHg <36 Aorta Name Value Normal Ascending Aorta Ao Root Diameter (MM) 2.8 cm Aortic Valve Name Value Normal AV Doppler AV Peak Velocity 135 cm/s AV Peak Gradient 7 mmHg AV Mean Gradient 4 mmHg AV VTI 33 cm AV Area (Cont Eq VTI) 2.0 cm2 >=3.0 AV Area (Cont Eq Will) 2.1 cm2 AV Regurgitation 2D LVOT Area 2.9 cm2 Ventricles Name Value Normal LV Dimensions 2D/MM IVS Diastolic Thickness (2D) 0.8 cm 0.6-1.0 LVID Diastole (2D) 4.9 cm 3.8-5.2 LVIW Diastolic Thickness (2D) 0.9 cm 0.6-0.9 LVID Systole (2D) 3.0 cm 2.2-3.5 LVOT Diameter 1.9 cm LV Mass (2D Cubed) 136.23 g 67.00-162.00 Relative Wall Thickness (2D) 0.37 LV Fractional Shortening/Ejection Fraction 2D/MM LV Fractional Shortening (2D) 38 % 27-45 LV EF (2D Teichbelloz) 68 % 54-74 LV Diastolic Volume (4C MOD) 91 ml LV EF (4C MOD) 70 % LV Diastolic Volume (2C MOD) 67 ml LV EF (2C MOD) 60 % LV Diastolic Volume (BP MOD) 80 ml 46-106 LV Systolic Volume (BP MOD) 28 ml 14-42 LV EF (BP MOD) 65 % 54-74 LV Diastolic Length (4C) 7.0 cm LV Systolic Length (4C) 5.4 cm LV Stroke Volume (4C MOD) 64 ml RV Dimensions 2D/MM RVID Diastole (2D) 3.8 cm 2.5-3.5 Atria Name Value Normal LA Dimensions LA Dimension (MM) 4.1 cm 2.7-3.8 LA Volume (4C A-L) 56 ml LA Volume (BP A-L) 60 ml RA Dimensions RA Area (4C) 13.3 cm2 <=18.0 Report Signatures
== END 2024-08-13 17:45 | disposition home or self-care (01) ==
LOC: ANHSURGERY 08:45 → ANH3MEDSUR 14:52
PROVIDERS: PCP Family Medicine; Visit Provider Neurological Surgery
PROC: (CPT 63030; principal; 2024-08-12 11:00)
DX: M48.02 Spinal stenosis, cervical region (principal); G95.9 Disease of spinal cord, unspecified; M25.78 Osteophyte, vertebrae; R29.810 Facial weakness; R47.1 Dysarthria and anarthria; I10 Essential (primary) hypertension; F32.A Depression, unspecified; F41.9 Anxiety disorder, unspecified; D64.9 Anemia, unspecified; G25.81 Restless legs syndrome; Z79.891 Long term (current) use of opiate analgesic; Z98.890 Other specified postprocedural states; Z90.49 Acquired absence of other specified parts of digestive tract; Z87.891 Personal history of nicotine dependence; Z86.711 Personal history of pulmonary embolism; Z87.19 Personal history of other diseases of the digestive system; Z80.0 Family history of malignant neoplasm of digestive organs
CPT/HCPCS: 22551; 22853; 20936; 70450; 70496; 70498; 70553; 82948; 92610; 93306; 96375; 97161; 97165; 99199; A9270; A9579; C1713; J0330; J0690; J1100; J2004; J2405; J2704; J3010; J3480; J7120; Q9967

== ENCOUNTER 2024-09-21 08:52 | Outpatient (CLI) | payer MEDICARE, BC, SELFPAY ==
--- NOTE | ~2024-09-21 | XR_ITS ---
[id number] Ordering provider: Mati Garcia MD History: . M48.02 - Spinal stenosis, cervical region . Comparison: None. FINDINGS: VERTEBRAL BODIES: Normal height and alignment. No visible fracture or subluxation. The dens is intact . Postoperative changes seen anteriorly at the level of C3 and C4. DISK SPACES: Disc spacers seen at the level of C3-C4. Severe narrowing of the disc C4-C5, C5-C6 and C 6-C7. Multilevel facet joint disease. Multilevel uncovertebral joint osteoarthritic changes. PARASPINOUS SOFT TISSUES: No prevertebral soft tissue swelling. IMPRESSION: No acute osseous abnormality cervical spine. Postoperative changes. Multilevel degenerative disc disease.. Reviewed, dictated and finalized at location A.
--- OUTSIDE RECORDS SUMMARY | 2024-09-21 09:06 | XMS_ITS | Encounter Summary ---
Author Organization [facility] Address [facility] [place] [address] Care Team Providers Care Outbound Sales Specialist Name Role Phone Pablo Vaughn MD Primary Care Provider + [phone] Stanley Mello MD Unavailable [phone] Gilbert Pablo MD Unavailable Zeyad Lozano MD Unavailable [phone] Pedro Barnhart MD Unavailable [phone] Eric Clark MD Primary Care Provider [phone] Encounter Details Date Type Department Care Team (Late st Contact Info) Description 06/16/2015 Abstract [facility] CONVERSION [address] [place], [place] [id number] , Yelena Patrick MD Social History Tobacco Use Types Packs/Day Years Used Date Smoking Tobacco: Never Assessed Comments Unknown Sex and Gender Information Value Date Recorded Sex Assigned at Female 03/25/2018 2:13 PM MARKETING PROGRAMS SPECIALIST Legal Sex Female 10:53 PM CDT Gender Identity Female 03/25/2018 2:13 PM MARKETING PROGRAMS SPECIALIST Sexual Orientation Straight 03/25/2018 2: 13 PM MARKETING PROGRAMS SPECIALIST documented as of this encounter Plan of Treatment Upcoming Encounters Date Type Department Care Team (Late Contact Info) Description 09/24/2024 10:00 AM CDT Office Visit [facility] Medical Group Family & Internal Medicine [facility] [id number] [place] [phone] [place] [address] [place] [address] documented as of this encounter Visit Diagnoses Not on filedocumented in this encounter Additional Health Concerns Infection Onset Date Last Indicated Resolved Time COVID-19 Rule Out 11/29/2019 11/29/2019 11/29/2019 4:09 PM CDT COVID-19 Rule Out 12/21/2019 12/21/2019 12/21/2019 11:45 AM CDT documented as of this encounter Care Teams Outbound Sales Specialist Relationship Specialty Start Date End Date Pablo Vaughn MD PCP - General INTERNAL MEDICINE 10/03/17 07/18/21 [place] [address] [place] [address] PCP - General FAMILY PRACTICE 07/19/21 Stanley Mello MD [facility] [address] [place] [address] [place] [employer] Instructor CARDIOVASCULAR DISEASE 10/03/17 Gilbert Pablo MD [address] [facility] [phone] [place] [address] Consulting Physician SURGERY 03/22/21 Zeyad Lozano MD [address] [place] [phone] Consulting Physician NEUROLOGY 03/22/21 Pedro Barnhart MD [address] [place] [address] Consulting Physician ORTHOPAEDIC SURGERY 03/22/21 documented as of this encounter
--- OUTSIDE RECORDS SUMMARY | 2024-09-21 09:06 | XMS_ITS | Encounter Summary ---
Author Organization [facility] Address [facility] [place] [address] Care Team Providers Care Diesel Power Mechanic Name Role Phone Pablo Vaughn MD Primary Care Provider + [phone] Stanley Mello MD Unavailable [phone] Gilbert Pablo MD Unavailable Zeyad Lozano MD Unavailable [phone] Pedro Barnhart MD Unavailable [phone] Eric Clark MD Primary Care Provider Encounter Details Date Type Department Care Team (Late st Contact Info) Description 11/29/2019 Hospital Orders Only [facility] Day [facility] [address] [place], [place] [id number] Pedro Barnhart MD [address] [address] Social History Tobacco Use Types Packs/Day Years Used Date Smoking Tobacco: Former Cigarettes Q uit: 1980 Smokeless Tobacco: Never Alcohol Use Standard Drinks/Week Comments Yes 0 (1 standard drink = 0.6 oz pur e alcohol) little PHQ-2 Answer Date Recorded PHQ-2 Score 2 11/17/2019 Comments No Sex and Gender Information Value Date Recorded Sex Assigned at Female 03/25/2018 2:13 PM BOBTAILER Legal Sex Female 10:53 PM CDT Gender Identity Female 03/25/2018 2:13 PM BOBTAILER Sexual Orientation Straight 03/25/2018 2: 13 PM BOBTAILER Occupation Industry Job Start Date Job End [...] Encounters Date Type Department Care Team (Late st Contact Info) Description 09/24/2024 10:00 AM CDT Office Visit [facility] Medical Group Family & Internal Medicine [facility] [address] [place] [address] [place] [address] [place], [place] [phone] documented as of this encounter Visit Diagnoses Not on filedocumented in this encounter Additional Health Concerns Infection Onset Date Last Indicated Resolved Time COVID-19 Rule Out 11/29/2019 11/29/2019 11/29/2019 4:09 PM CDT COVID-19 Rule Out 12/21/2019 12/21/2019 12/21/2019 11:45 AM CDT documented as of this encounter Care Teams Diesel Power Mechanic Relationship Specialty Start Date End Date Pablo Vaughn MD PCP - General INTERNAL MEDICINE 10/03/17 07/18/21 [place] [address] [place] [address] PCP - General FAMILY PRACTICE 07/19/21 Stanley Mello MD [facility]. [address] [place] [address] [place] Asset Protection Associate CARDIOVASCULAR DISEASE 10/03/17 Gilbert Pablo MD [facility] [address] [facility] [facility] [phone] [place] [address] Consulting Physician SURGERY 03/22/21 Zeyad Lozano MD [address] [place] [address] Consulting Physician NEUROLOGY 03/22/21 ePdro Barnhart MD [address] [place] [address] [address] Consulting Physician ORTHOPAEDIC SURGERY 03/22/21 documented as of this encounter
--- OUTSIDE RECORDS SUMMARY | 2024-09-21 09:06 | XMS_ITS | Encounter Summary ---
Author Organization [facility] Address [facility] [place] [address] Care Team Providers Care Disease Case Manager Rn Name Role Phone Pablo Vaughn MD Primary Care Provider + [phone] Stanley Mello MD Unavailable [phone] Gilbert Pablo MD Unavailable Zeyad Lozano MD Unavailable [phone] Pedro Barnhart MD Unavailable [phone] Eric Clark MD Primary Care Provider [phone] Encounter Details Date Type Department Care Team (Late st Contact Info) Description 11/29/2019 Prep for Procedure [facility] Day [facility] [address] [place], [place] [id number] Pedro Barnhart MD [address] [address] Social History Tobacco Use Types Packs/Day Years Used Date Smoking Tobacco: Former Cigarettes Q uit: 1980 Smokeless Tobacco: Never Alcohol Use Standard Drinks/Week Comments Yes 0 (1 standard drink = 0.6 oz pur e alcohol) little PHQ-2 Answer Date Recorded PHQ-2 Score 2 11/17/2019 Comments No Sex and Gender Information Value Date Recorded Sex Assigned at Female 03/25/2018 2:13 PM FALSEWORK BUILDER Legal Sex Female 10:53 PM CDT Gender Identity Female 03/25/2018 2:13 PM FALSEWORK BUILDER Sexual Orientation Straight 03/25/2018 2: 13 PM FALSEWORK BUILDER Occupation Industry Job Start Date Job End [...] Description 09/24/2024 10:00 AM CDT Office Visit [facility] Medical Group Family & Internal Medicine 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: : 1945 Requested By: PEDRO BARNHART Order Number: [id number] Reading MD: Mars Mcintosh Measurements Intervals [place] Rate: 60 P: 26 [place]: 152 QRS: 1 QRSD: 84 T: 23 QT: 383 QTc: 386 Interpretive Statements SINUS RHYTHM LOW QRS VOLTAGE IN PRECORDIAL LEADS [QRS DEFLECTION < 1.0 mV IN CHEST LEADS] No previous ECG available for comparison Procedure Note Mars Mcintosh MD - 11/29/2019 [facility] Test Date: 2019-11-29 Pat Name: LEAH SHORTACE Department: Room: Gender: Female Supervisor Cigar Making Machine: : 1945 Requested By: PEDRO BARNHART Order Number: [id number] Reading MD: Mars Mcintosh Measurements Intervals [place] Rate: 60 P: 26 [place]: 152 QRS: 1 QRSD: 84 T: 23 QT: 383 QTc: 386 Interpretive Statements SINUS RHYTHM LOW QRS VOLTAGE IN PRECORDIAL LEADS [QRS DEFLECTION < 1.0 mV IN CHESTLEADS] No previous ECG available for comparison us Pedro Barnhart MD ECG ORDERABLES Final Result [facility] * RESPIRATORY PCR PANEL 2 (11/29/2019 11:34 AM CDT) ADENOVIRUS PCR (RESP) NOT DETECTED NOT DETECTED 11/29/2019 4:09 PM CDT [facility] CORONAVIRUS 229E PCR (RESP) NOT DETECTED NOT DETECTED 11/29/2019 4:09 PM CDT [facility] CORONAVIRUS HKU1 PCR (RESP) NOT DETECTED NOT DETECTED 11/29/2019 4:09 PM CDT [facility] CORONAVIRUS NL63 PCR (RESP) NOT DETECTED NOT DETECTED 11/29/2019 4:09 PM CDT [facility] CORONAVIRUS OC43 PCR (RESP) NOT DETECTED NOT DETECTED 11/29/2019 4:09 PM CDT [facility] METAPNEUMOVIRUS PCR (RESP) NOT DETECTED NOT DETECTED 11/29/2019 4:09 PM CDT [facility] RHINOVIRUS/ENTEROV IRUS PCR (RESP) NOT DETECTED NOT DETECTED 11/29/2019 4:09 PM CDT [facility] INFLUENZA A PCR (RESP) NOT DETECTED NOT DETECTED 11/29/2019 4:09 PM CDT [facility] INFLUENZA B PCR (RESP) NOT DETECTED NOT DETECTED 11/29/2019 4:09 PM CDT [facility] PARAINFLUENZA 1 PCR (RESP) NOT DETECTED NOT DETECTED 11/29/2019 4:09 PM CDT [facility] PARAINFLUENZA 2 PCR (RESP) NOT DETECTED NOT DETECTED 11/29/2019 4:09 PM CDT [facility] PARAINFLUENZA 3 PCR (RESP) NOT DETECTED NOT DETECTED 11/29/2019 4:09 PM CDT [facility] PARAINFLUENZA 4 PCR (RESP) NOT DETECTED NOT DETECTED 11/29/2019 4:09 PM CDT [facility] RSV PCR (RESP) NOT DETECTED NOT DETECTED 11/29/2019 4:09 PM CDT [facility] B PARAPERTUSIS PCR (RESP) NOT DETECTED NOT DETECTED 11/29/2019 4:09 PM CDT [facility] BORDETELLA PERTUSSIS PCR (RESP) NOT DETECTED NOT DETECTED 11/29/2019 4:09 PM CDT [facility] CHLAMYDOPHILA PNEUMONIAE PCR (RESP) NOT DETECTED NOT DETECTED 11/29/2019 4:09 PM CDT [facility] MYCOPLASMA PNEUMONIAE PCR (RESP) NOT DETECTED NOT DETECTED 11/29/2019 4:09 PM CDT [facility] CORONAVIRUS SARS COV 2 PCR (RESP) NOT DETECTED NOT DETECTED 11/29/2019 4:09 PM CDT [facility] Comment: THE SARS-CoV-2 TEST HAS BEEN AUTHORIZED BY THE FDA UNDER AN EUA FOR USE BY AUTHORIZED LABORATORIES. NASOPHARYNGEAL STRUCTURE / Unknown 11/29/2019 11:34 AM CDT us Pedro Barnhart MD MICROBIOLOGY - GENERAL ORDERA BLES Final Result [facility] [address] [place] [address], documented in this encounter Visit Diagnoses Diagnosis Preoperative testing- Primary Preoperative examination, unspecified Preoperative clearance Preoperative examination, unspecified Preoperative clearance Preoperative examination, unspecified documented in this encounter Additional Health Concerns Infection Onset Date Last Indicated Resolved Time COVID-19 Rule Out 11/29/2019 11/29/2019 11/29/2019 4:09 PM CDT COVID-19 Rule Out 12/21/2019 12/21/2019 12/21/2019 11:45 AM CDT documented as of this encounter Care Teams Disease Case Manager Rn Relationship Specialty Start Date End Date Pablo Vaughn MD PCP - General INTERNAL MEDICINE 10/03/17 07/18/21 [place] [address] [place] [address] PCP - General FAMILY PRACTICE 07/19/21 Stanley Mello MD [facility]. [address] [place] [address] [employer] Drum Stock Clerk CARDIOVASCULAR DISEASE 10/03/17 Gilbert Pablo MD [address] [facility] [phone] [place] [address] Consulting Physician SURGERY 03/22/21 Zeyad Lozano MD [address] [place] [address] [phone] Consulting Physician NEUROLOGY 03/22/21 Pedro Barnhart MD [address] [place] [address] Consulting Physician ORTHOPAEDIC SURGERY 03/22/21 documented as of this encounter
--- OUTSIDE RECORDS SUMMARY | 2024-09-21 09:06 | XMS_ITS | Clinical Summary ---
Author Organization [facility] Address [address] [place] [address] Care Team Providers Care Software Test Specialist Name Role Phone Priya Ortega MD Unavailable [phone] Gilbert Pablo MD Unavailable Zeyad Lozano MD Unavailable [phone] UngPedro martinez MD Unavailable [phone] Eric Clark MD Primary Care Provider [phone] Allergies Active Allergy Reactions Criticality Noted Date [...] meals. 90 each 1 01/25/20 23 Active escitalopram (LEXAPRO) 20 MG tabletIndications :Moderate [...] HOURS NEEDED FOR PAIN. 90 tablet 08/11/19 25 Active omeprazole (PRILOSEC) 20 MG capsuleIndication s:Gastroesophagea l reflux disease with esophagitis, unspecified whether hemorrhage Take 1 capsule (20 mg total) by mouth 2 (two) times daily. 180 capsule 09/21/19 Active omeprazole (PRILOSEC) 20 MG capsuleIndication s:Gastroesophagea l reflux disease with esophagitis, unspecified whether hemorrhage TAKE 1 CAPSULE BY MOUTH TWICE DAILY 180 capsule 3 07/25/19 24 2024 Discontinued omeprazole (PRILOSEC) 20 MG capsuleIndication s:Gastroesophagea l reflux disease with esophagitis, unspecified whether hemorrhage TAKE 1 CAPSULE BY MOUTH TWICE DAILY 180 capsule 08/26/19 25 2024 Discontinued(R eorder) Hospital, Clinic, or Other Facility Administered Medication Ordered Dose Route Frequency Start Date End Date Status phenazopyridine (PYRIDIUM) tablet 100 mgIndications:UTI symptoms 100 mg OR 3 times daily with meals 09/19/2023 Active Active Problems Problem Noted Date Diagnosed Date Primary fibromyalgia 12/16/2023 Lumbar radiculopathy 12/12/2022 Overview (12/12/2022): Added automatically from request for surgery [id number] Joint replaced by other means 05/30/2021 Osteoarthritis [...] today. Assessment & Plan (04/22/2018 9:21 AM ACCOUNT INSTALLATION SPECIALIST): Check routine labs to reassess today. Essential tremor 02/13/2017 Overview (04/15/2018): Transitioned From: Resting tremor Assessment & Plan (11/15/2018 5:25 PM CDT): Stable, continues on primidone as prescribed by Dr. Ta, with regular follow- up with him. Improved control of symptoms. No treatment change. Assessment & Plan (04/22/2018 9:19 AM ACCOUNT INSTALLATION SPECIALIST): Patient reports less effectiveness with her primidone. She is scheduled to see her neurologist in the next 3 months and wishes to wait to discuss this with him. It is not causing any side effects or intolerances however. Anemia, mild 12/07/2015 Assessment & Plan (11/15/2018 5:29 PM CDT): Check CBC today. Assessment & Plan (04/22/2018 9:21 AM ACCOUNT INSTALLATION SPECIALIST): Obtain CBC and reevaluate today. Medication management 12/06/2015 Overview (04/15/2018): Transitioned From: halfway use of drug Assessment & Plan (11/15/2018 5:29 PM CDT): Routine lab work to be drawn today. Assessment & Plan (04/22/2018 9:24 AM ACCOUNT INSTALLATION SPECIALIST): Obtain routine lab work for reassessment of [...] draw. Assessment & Plan (04/22/2018 9:20 AM ACCOUNT INSTALLATION SPECIALIST): Stable on current medication and regimen. However, her insurance is going to require her to change dosing with her next renewal. We will plan on changing her to 40 mg once daily when that occurs and continue to monitor for any breakthrough symptoms. Vitamin D deficiency 02/08/2015 Assessment & Plan (04/22/2018 9:20 AM ACCOUNT INSTALLATION SPECIALIST): Check vitamin D level for chronic medication use today. Moderate episode of recurrent major depressive d isorder 06/15/2014 Assessment & Plan (11/15/2018 5:29 PM CDT): Stable on current dosing of trazodone nightly. Continue to monitor. Patient reports improved stress related to family. Assessment & Plan (04/22/2018 9:23 AM ACCOUNT INSTALLATION SPECIALIST): Stable at present on current medications. No change in therapy. Pseudophakia of both eyes 05/05/2014 Pernicious anemia 04/02/2013 Assessment & Plan (04/22/2018 9:22 AM ACCOUNT INSTALLATION SPECIALIST): Continues on vitamin B12 supplements, check levels today. Arthritis of multiple sites 06/24/2012 Overview (04/15/2018): Annotation - [id number]: right hip; left knee; Ran Hopson MD Assessment & Plan (11/15/2018 5:27 PM CDT): Reasonably controlled with intermittent use of ibuprofen as well as tramadol. Review of [place] Prescription Monitoring Program website indicates no misuse or abuse. Continue tramadol dosing. Assessment & Plan (04/22/2018 9:20 AM ACCOUNT INSTALLATION SPECIALIST): Stable on current regimen, with intermittent use [...] plan. Assessment & Plan (04/22/2018 9:21 AM ACCOUNT INSTALLATION SPECIALIST): Patient continues on current regimen. New insurance pharmacy management is going to require a change to generic levothyroxine. We will do that with her next renewal. Encouraged to monitor for any symptoms or other side effects with the change of medication. Check TSH today. Resolved Problems Problem Noted Date Diagnosed Date Resolved Date Hip pain 07/27/2020 07/27/2020 SBO (small bowel obstruction ) ([facility]) 12/20/2019 01/28/2020 Gastric outlet obstruction ([facility]) 12/20/2019 01/28/2020 Class 1 obesity due to exces s calories with serious comorbidity and body mass index (BMI) of 30.0 to 30.9 in adult 11/17/2019 01/15/2022 Acute non-recurrent sinusiti s, unspecified location 03/25/2018 04/15/2018 Dysuria 01/16/2018 04/22/2018 Superficial thrombophlebitis 07/11/2017 04/22/2018 Wears glasses 03/03/2017 01/14/2020 Sinus bradycardia 07/27/2020 Encounters Date Type Department Care Team Description 08/13/2024 Scan [facility] Scanned, [facility] MRI (SCAN) 08/12/2024 Scan [facility] Scanned, [facility] CT (SCAN); Procedure (SCAN); Lab (SCAN) 08/02/2024 Scan [facility] Scanned, [facility] Lab (SCAN) 08/02/2024 [facility] [address] [address] Priya Ortega MD Information ([facility] Pre Testing Anesthesia) 07/12/2024 9:29 AM CDT - 07/12/2024 11:59 PM CDT Hospital Encounter [facility] Cardiopulmonary Services [address] [place] [address] Priya Ortega MD Discharge Disposition: Home or Self Care (Routine Discharge) 07/12/2024 9:28 AM CDT Hospital Encounter [facility] Nuclear Medicine [address] [place] [address] Priya Ortega MD Discharge Disposition: Home or Self Care (Routine Discharge) 07/12/2024 Travel 07/02/2024 Telephone [facility], [place] [address] [place] [address] Priya Ortega MD Surgical Clearance 07/01/2024 11:30 AM ACCOUNT INSTALLATION SPECIALIST [facility] [address] [place] [id number] Priya Ortega MD Consult; Hypertension 07/01/2024 Travel from Last 3 Months Immunizations Immunization Administration Dates Next Due FLUAD (IIV, Trivalent, [...] 02/08/2017 Pneumococcal (Prevnar 13) 04/22/2018 Zoster (Zostavax) 66887 Unt/0.65Ml 04/24/2012 Family History Medical History Relation [...] Former Cigarettes 0.5 1 1 979 - 1980 Smokeless Tobacco: Never Tobacco Cessation:Counseling Given: No Comments:former smoker Alcohol Use Standard Drinks/Week Comments Yes 0 (1 standard drink = 0.6 oz pur e alcohol) rare PHQ-2 Answer Date Recorded Patient Health Questionnaire-2 Score 0 12/16/2023 Comments No Sex and Gender Information Value Date Recorded Sex Assigned at Female 03/25/2018 2:13 PM ACCOUNT INSTALLATION SPECIALIST Legal Sex Female 10:53 PM CDT Gender Identity Female 03/25/2018 2:13 PM ACCOUNT INSTALLATION SPECIALIST Sexual Orientation Straight 03/25/2018 2: 13 PM ACCOUNT INSTALLATION SPECIALIST Occupation Industry Job Start Date Job End Date Not on file Not on file Not on file Not on file Last Filed Vital Signs Vital Sign Reading Time Taken Comments Blood Pressure 150/80 07/01/2024 11:19 AM ACCOUNT INSTALLATION SPECIALIST Pulse 60 07/01/2024 11:19 AM ACCOUNT INSTALLATION SPECIALIST Temperature 35.8 C (96.5 F) 06/10/2024 9:12 AM ACCOUNT INSTALLATION SPECIALIST Respiratory Rate 16 06/10/2024 9:12 AM ACCOUNT INSTALLATION SPECIALIST Oxygen Saturation 92% 06/10/2024 9:12 AM ACCOUNT INSTALLATION SPECIALIST Inhaled Oxygen Concentration - - Weight 76.2 kg (168 lb) 07/01/2024 11:19 AM ACCOUNT INSTALLATION SPECIALIST Height 154.9 cm (5' 1 ) 07/01/2024 11:19 AM ACCOUNT INSTALLATION SPECIALIST Body Mass Index 31.74 07/01/2024 11:19 AM ACCOUNT INSTALLATION SPECIALIST Plan of Treatment Upcoming Encounters Date Type Department Care Team (Late st Contact Info) Description 09/24/2024 10:00 AM CDT Office Visit [facility] [id number] [place] [address] [place] [id number] [place] [address] Health Maintenance Due Date Last Done Comments Annual Medicare Wellness Visit 2010 Zoster Vaccines (2 of 3) 06/19/2012 04/24/2012 RSV Immunization or 60+ Years (1 - 1-dose 75+ series) 2020 COVID-19 Vaccine (6 - season) 2024 02/04/2023, 01/17/2022, 02/21/2021, Additional history exists PHQ-2 (Physician [place]) 05/05/2024 12/16/2023 DTaP, Tdap and Td Vaccines (1 - Tdap) 11/02/2028 Postponed from 1964 (Per Provider Recommendation) Colorectal Cancer Screening Colonoscopy (10 Years) Discontinued 07/15/2012 Pneumococcal Vaccine: 50+ Years Completed 04/22/2018, 02/08/2017 Hepatitis C Completed [...] this topic Medical Devices Implanted Type Area Pest Control Operator Device Identifier Shelf Expiration Date Model / Serial / Lot Hip Components Hip Components 3.5mm Locking Hexalobe Screws Implanted:Qty: 1 on 11/30/2019 by Pedro Barnhart MD at [facility] Left: Wrist / -0236 / Proximal Vdr Narrow Plate Left Implanted:Qty: 1 on 11/30/2019 by Pedro Barnhart MD at [facility] Left: Wrist / -0352 / 3.5mm Non Locking Hexalobe Screw Implanted:Qty: 1 on 11/30/2019 by Pedro Barnhart MD at [facility] Left: Wrist / / 8 2.3mm Fully Threaded Locking Screws (Gold) Implanted:Qty: 2 on 11/30/2019 by Pedro Barnhart MD at [facility] Left: Wrist / [id number] / 2.3mm Smooth Locking Pegs (Gold) Implanted:Qty: 1 on 11/30/2019 by Pedro Barnhart MD at [facility] Left: Wrist / / [id number] Explanted Type Area Pest Control Operator Device Identifier Shelf Expiration Date Model / Serial / Lot 2.0 Quick Release Drill Bit Explanted:Qty: 1 on 11/30/2019 by Pedro Barnhart MD at [facility] Left: Wrist / [id number] / Guide Wire Explanted:Qty: 3 on 11/30/2019 by Pedro Barnhart MD at [facility] Left: Wrist / [id number] / 2.8 Quick Release Drill Bit Explanted:Qty: 1 on 11/30/2019 by Pedro Barnhart MD at [facility] Left: Wrist / [id number] / 2.8 Quick Release Drill Bit Explanted:Qty: 1 on 11/30/2019 at [facility] Left: Wrist / [id number] / Procedures Procedure Name Priority Date/Time Associated Diagnosis Comments MRI GENERIC 08/13/2024 CT GENERIC 08/12/2024 CT GENERIC 08/12/2024 OUTSIDE LAB (SCAN ORDER) 08/12/2024 PROCEDURE GENERIC (SCAN ORDER) 08/12/2024 PROCEDURE GENERIC (SCAN ORDER) 08/12/2024 OUTSIDE LAB (SCAN ORDER) 08/02/2024 OUTSIDE LAB (SCAN ORDER) 08/02/2024 OUTSIDE LAB (SCAN ORDER) 08/02/2024 OUTSIDE PT/INR (SCAN ORDER) 08/02/2024 NM PHARM NUC STRESS TEST 1DAY W TRACING Routine 07/12/2024 12:42 PM CDT Abnormal EKG Chest pain, unspecified type STRESS TEST ONLY, EXERCISE Routine 07/12/2024 11:01 AM CDT Abnormal EKG BONE DENSITY/DEXA Routine 07/12/2022 11: 10 AM ACCOUNT INSTALLATION SPECIALIST Post-menopausal Osteopenia Osteoporosis HEPATITIS C ANTIBODY Routine 05/22/2022 9:53 AM ACCOUNT INSTALLATION SPECIALIST Lupus (CMS/HCC HHS/HCC) Sjogren syndrome with central nervous system involvement Systemic lupus erythematosus Peripheral nerve disorder Fatigue Senile arthritis Hypomagnesemia Impaired glucose tolerance test Vitamin D deficiency Vitamin B12 deficiency Encounter for therapeutic drug monitoring COLONOSCOPY Routine 07/15/2012 12:00 AM CDT from Last 3 Months or Most Recently Relevant to Health Maintenance Results * MRI GENERIC (08/13/2024) Anatomical Region Laterality Modality Other 08/13/2024 Result [facility] Scanned SCANNING Final Resu lt * CT GENERIC (08/12/2024) Only the most recent of2 resultswithin the time period is included. Anatomical Region Laterality Modality Other 08/12/2024 Result [facility] Scanned SCANNING Final Resu lt * OUTSIDE LAB (SCAN ORDER) (08/12/2024) Only the most recent of4 resultswithin the time period is included. 08/12/2024 Result [facility] Scanned SCANNING Final Resu lt * PROCEDURE GENERIC (SCAN ORDER) (08/12/2024) 08/12/2024 Result [facility] Scanned SCANNING Final Resu lt * PROCEDURE GENERIC (SCAN ORDER) (08/12/2024) 08/12/2024 Result [facility] Scanned SCANNING Final Resu lt * OUTSIDE PT/INR (SCAN ORDER) (08/02/2024) 08/02/2024 Result [facility] Scanned SCANNING Final Resu lt [...] 1:56 PM Narrative 07/12/2024 3:04 PM CDT [facility] [address] [facility] [place] [address] EXAMINATION: MYOCARDIAL IMAGING (REST AND PHARMACOLOGIC-STRESS/SPECT) DATE [...] Procedure Note Loni Fernandez MD - 07/12/2024 [facility] [address] [place] [address] EXAMINATION: MYOCARDIAL IMAGING (REST AND PHARMACOLOGIC-STRESS/SPECT) DATE [...] CDT) 07/12/2024 11:0 1 AM CDT Narrative [facility] RAD - 07/12/2024 12:[address] [facility] Test Date: 2024-07-12 Pat Name: ALEJANDRA TAPIA Department: Room: Gender: Female Healthcare Educator: Zoe Hand TEAR DOWN MAN : 1945 Requested By: PRIYA ORTEGA Order Number: [id number] Reading JIMMY Ortega Interpretive Statements ATTENDING PHYSICIAN: Priya Ortega ORDER #: [id number] INDICATION: R94.31^Abnormal electrocardiogram (ECG) (EKG)^ICD-10-CM PROTOCOL: Lexiscan [...] Procedure Note Priya Ortega MD - 07/12/2024 [facility] Test Date: 2024-07-12 Pat Name: ALEJANDRA TAPIA Department: Room: Gender: Female Healthcare Educator: Zoe Hand TEAR DOWN MAN : 1945 Requested By: PRIYA ORTGEA Order Number: [id number] Reading JIMMY Ortega Interpretive Statements ATTENDING PHYSICIAN: Priya Ortega ORDER #: [id number] INDICATION: R94.31^Abnormal electrocardiogram (ECG) (EKG)^ICD-10-CM PROTOCOL: Lexiscan [...] CV CARDIAC SERVICES ORDERAB LES Final Result [facility] ([facility]) RAD * BONE DENSITY/DEXA (07/12/2022 11:10 AM ACCOUNT INSTALLATION SPECIALIST) Anatomical Region Laterality Modality Bone Bone Density 07/12/2022 11:1 2 AM ACCOUNT INSTALLATION SPECIALIST Narrative 07/12/2022 11:14 AM ACCOUNT INSTALLATION SPECIALIST IMAGING STUDIES: BONE DENSITY/DEXA DATE: 07/12/2022 10:59 [...] * HEPATITIS C ANTIBODY (05/22/2022 9:53 AM ACCOUNT INSTALLATION SPECIALIST) HEPATITIS C AB NON-REACTI VE NON-REACTI VE 05/22/2022 2:49 PM ACCOUNT INSTALLATION SPECIALIST [facility] 05/22/2022 9:53 AM ACCOUNT INSTALLATION SPECIALIST Elan Heck MD LABORATORY Final Result [facility] [address] [place] [address], * Colonoscopy (07/15/2012 12:00 AM CDT) 07/15/2012 07/15/2012 Narrative [facility] TO EPIC CONVERSION - 07/15/2012 12:00 AM CDT Documented hx of procedure Procedure Note Yelena Plaza, - 03/08/2018 Documented hx of procedure us Generic Conversion Md [facility] PROCEDURE ORDERABLES Final Result [facility] TO EPIC CONVERSION from Last 3 Months or Most Recently Relevant to Health Maintenance Insurance MEDICARE ALLIED BENEFITS MEDICARE BLUE CROSS BLUE SHIELD Advance Directives * No Code Status (Latest Code Status on File) Date Activated Date Inactivated Comments 07/02/2022 9:08 AM 03/17/2023 9:17 AM all routine medication should be sent to [facility] please * Full Code Date Activated Date Inactivated Comments 12/21/2019 8:23 AM 12/25/2019 1:18 PM * Full Code Date Activated Date Inactivated Comments 12/14/2019 10:08 PM 12/20/2019 6:39 PM Care Teams Software Test Specialist Relationship Specialty [place] [address] [place] [address] PCP - General FAMILY PRACTICE 07/19/21 Priya Ortega MD [facility]. [facility] [address] [place] [address] [place] Inventory Worker CARDIOVASCULAR DISEASE 10/03/17 Gilbert Pablo MD [address] [facility] [phone] [place] [address] Consulting Physician SURGERY 03/22/21 Zeyad Lozano MD [address] [place] [address] Consulting Physician NEUROLOGY 03/22/21 Pedro Barnhart MD [address] [place] [address] [address] Consulting Physician ORTHOPAEDIC SURGERY 03/22/21
--- OUTSIDE RECORDS SUMMARY | 2024-09-21 09:06 | XMS_ITS | Encounter Summary ---
Author Organization [facility] Address [address] [place] [address] Care Team Providers Care Fisher Terrapin Name Role Phone Pablo Vaughn MD Primary Care Provider [phone] Stanley Mello MD Unavailable [phone] Gilbert Pablo MD Unavailable Zeyad Lozano MD Unavailable [phone] Pedro Barnhart MD Unavailable [phone] Eric Clark MD Primary Care Provider [phone] Encounter Details Date Type Department Care Team (Late st Contact Info) Description 01/06/2018 [facility] at [address] [address] Fede Turcios MA Social History Tobacco Use Types Packs/Day Years Used Date Smoking Tobacco: Former Alcohol Use Standard Drinks/Week Comments No 0 (1 standard drink = 0.6 oz pur e alcohol) Comments Unknown Sex and Gender Information Value Date Recorded Sex Assigned at Female 03/25/2018 2:13 PM PROJECT SAFETY MANAGER Legal Sex Female 10:53 PM CDT Gender Identity Female 03/25/2018 2:13 PM PROJECT SAFETY MANAGER Sexual Orientation Straight 03/25/2018 2: 13 PM PROJECT SAFETY MANAGER Occupation Industry Job Start Date Job End Date Not on file Not on file Not on file Not on file documented as of this encounter Progress Notes * EMELIA Tijerina-MANDA - 01/06/2018 3:31 PM CDT Labs reviewed from a month ago. Will discuss at upcoming appt documented in this encounter Plan of Treatment Upcoming Encounters Date Type Department Care Team (Late st Contact Info) Description 09/24/2024 10:00 AM CDT Office Visit [facility] Family & Internal Medicine [facility] [address] [place] [address] [place] [address] [place] [address] documented as of this encounter Procedures Procedure [...] documented as of this encounter Care Teams Fisher Terrapin Relationship Specialty Start Date End Date Pablo Vaughn MD PCP - General INTERNAL MEDICINE 10/03/17 07/18/21 [place] [address] [place] [address] PCP - General FAMILY PRACTICE 07/19/21 Stanley Mello MD [facility]. [address] [address] [place] Die Storage Worker CARDIOVASCULAR DISEASE 10/03/17 Gilbert Pablo MD [address] [facility] [phone] [place] [address] Consulting Physician SURGERY 03/22/21 Zeyad Lozano MD [address] [place] [address] Consulting Physician NEUROLOGY 03/22/21 Pedro Barnhart MD [address] [place] [address] [address] Consulting Physician ORTHOPAEDIC SURGERY 03/22/21 documented as of this encounter
--- OUTSIDE RECORDS SUMMARY | 2024-09-21 09:06 | XMS_ITS | Continuity of Care Document ---
Author Organization [facility] Address [address] [place] [address] Phone Care Team Providers Care Deboner Name Role Phone Migel Franklin MD Unavailable Unavailable Advance Directives Directive Yes / No Effective Date File Name No Information Encounters Encounter Description Practice Location Reason(s) For Visit Diagnoses Date Provider Providers Copied on Encounter [facility], [address], [place], [place], [id number], tel:[phone] [facility] No Information Rigoberto Lainez. [address] , [place], [place], [id number], [place]. tel:[phone] Referring Provider: Yohannes Rivero DO, [address], [place], [address]. tel:[phone] Family History Family Member Type Diagnosis Age At Onset No Information Payers Payer name Insurance type Covered republican ID Authoriza tion(s) MEDICARE [id number] [employer] 3 CI [id number] Social History Type Description Quantity Date [...]
--- OUTSIDE RECORDS SUMMARY | 2024-09-21 09:06 | XMS_ITS | Clinical Summary ---
Author Organization [facility] Address [address] [place] [address] Care Team Providers Care Template Inspector Name Role Phone Pablo Vaughn MD [...] on file Legal Sex Female 1:10 AM SETTER UP Gender Identity Not on file Sexual Orientation [...] of Treatment Not [place] [address] [facility] [employer] [place] MEDICARE Care Teams Template Inspector Relationship Specialty Start Date End Date Pablo Vaughn MD PCP - General 08/09/14
--- OUTSIDE RECORDS SUMMARY | 2024-09-21 09:06 | XMS_ITS | Referral Summary ---
Author Organization [facility] Address [address] [place] [address] Care Team Providers Care Director Of Operations Support Name Role Phone Pablo Vaughn MD Primary [...] on file Legal Sex Female 1:10 AM SOCIAL MEDIA CONTENT MANAGER Gender Identity Not on file Sexual Orientation [...] of Treatment Not on file Insurance [place]IC[place] [facility] Address: [facility] [address] [place] [address] Care Teams Director Of Operations Support Relationship Specialty Start Date End Date Pablo Vaughn MD PCP - General 08/09/14
== END 2024-09-21 08:53 | disposition home or self-care (01) ==
LOC: ANHIMG 08:54
PROVIDERS: PCP Family Medicine; Visit Provider Neurological Surgery
DX: M48.02 Spinal stenosis, cervical region (principal); M50.30 Other cervical disc degeneration, unspecified cervical region
CPT/HCPCS: 72040

== ENCOUNTER 2024-12-21 09:46 | Outpatient (CLI) | payer MEDICARE, BC, SELFPAY ==
--- OUTSIDE RECORDS SUMMARY | 2014-12-21 05:45 | XMS_ITS | Continuity of Care Document ---
Author Organization [facility] Address [address] [place] [address] Phone Care Team Providers Care Rehabilitation Aide Name Role Phone Migel Franklin MD Unavailable Unavailable Advance Directives Directive Yes / No Effective Date File Name No Information Encounters Encounter Description Practice Location Reason(s) For Visit Diagnoses Date Provider Providers Copied on Encounter [facility], [address], [place], [place], [address], tel:[phone] [facility] No Information Rigoberto Lainez. [address] , [place], [place], [address], [place]. tel:[phone] Referring Provider: Yohannes Rivero DO, [address], [place], [address]. tel:[phone] Family History Family Member Type Diagnosis Age At Onset No Information Payers Payer name Insurance type Covered alliance party ID Authoriza tion(s) MEDICARE [id number] [employer] 3 CI [id number] 2 Social History Type Description Quantity Date Captured Comments Sex Female Smoking Status No Information Chief Complaint And Reason For Visit No Information Reason For Referral Reason For Referral No Information History Of Present Illness Encounter Date Complaint History Of Prese nt Illness No Information Functional Status Date Functional Assessmen t No Information Instructions Date Instruction Additional Infor mation No Information Assessments Type Assessment Date No Information Patient Care Teams Name Effective Dates (start - stop) Status Members No Information
--- NOTE | ~2024-12-21 | US_ITS ---
US venous doppler [facility] - 12/21/2024 10:38 CDT History: 78 years old Female with left lower extremity pain and swelling. Real-time sonographic images of the left lower extremity venous system were obtained. Color Doppler sonography and spectral waveform analysis were performed. No prior studies for comparison. The left sapheno-femoral junctions are patent. The left common femoral, superficial femoral, popliteal and posterior tibial veins are compressible and without evidence of echogenic thrombus. Impression: No evidence of deep venous thrombosis Reviewed, dictated and finalized at location A. Impression: No evidence of deep venous thrombosis
--- OUTSIDE RECORDS SUMMARY | 2024-12-21 10:21 | XMS_ITS | Clinical Summary ---
Author Organization [facility] Address [address] [place] [address] Care Team Providers Care Seed Cutter Name Role Phone Pablo Vaughn MD Primary [...] on file Legal Sex Female 1:10 AM SOLE LAYER HAND Gender Identity Not on file Sexual Orientation [...] of Treatment Not on file Insurance MEDICARE [facility] [employer] [place] MEDICARE Care Teams Seed Cutter Relationship Specialty Start Date End Date Pablo Vaughn MD PCP - General 08/09/14
--- OUTSIDE RECORDS SUMMARY | 2024-12-21 10:21 | XMS_ITS | Clinical Summary ---
Author Organization [facility] Address [address], [facility] [address] [place] [address] Phone Care Team Providers Care License Clerk Name Role Phone Pablo Vaughn MD Primary Care Provider [phone] Gerhard Colin MD Unavailable [phone] Allergies Active Allergy Reactions Criticality Noted Date [...] Lnp-s, Pf, 3 0 Mcg/0.3 Ml Dose (17u.cn) 07/22/2020,07/01/2020 Influenza Vaccine 01/17/2020 Influenza Vaccine,unspecifie d [...] (Adult) (1 - 1-dose 75+ series) 2020 SARS-COV-2 Immunization (3 - season) 2024 07/22/2020, 07/01/2020 Influenza Immunization (#1) 2025 0908/2020, 01/17/2020, 01/17/2020, Additional history exists Pneumococcal Immunization (50+ years) Completed 04/22/2018, 02/08/2017 Pneumococcal Immunization Combined Discontinued 04/22/2018, 02/08/2017 Hepatitis B Immunization Aged Out No longer eligible based on patient's age to complete this topic Human Papillomavirus (HPV) Immunization Aged Out No longer eligible based on patient's age to complete this topic Meningococcal Immunization (ACWY) Aged Out No longer eligible based on patient's age to complete this topic Rotavirus Immunization Aged Out No lo nger eligible based on patient's age to complete this topic Insurance MEDICARE [facility] Care Teams License Clerk Relationship Specialty [place] [id number] [address] PCP - General General Surgery 02/01/20 Gerhard Colin MD [address] [place] [phone] Consulting Physician Oncology 04/12/20
== END 2024-12-21 09:47 | disposition home or self-care (01) ==
PROVIDERS: PCP Family Medicine; Visit Provider Orthopaedic Surgery
DX: R60.0 Localized edema (principal)
CPT/HCPCS: 93971

== ENCOUNTER 2024-12-23 09:41 | Outpatient (CLI) | payer MEDICARE, BC, SELFPAY ==
--- OUTSIDE RECORDS SUMMARY | 2024-12-23 10:21 | XMS_ITS | Clinical Summary ---
Author Organization [facility] Address [address] [place] [address] Care Team Providers Care Shearing Machine Tender Name Role Phone Stanley Mello MD Unavailable [phone] Gilbert Pablo MD Unavailable Zeyad Lozano MD Unavailable [phone] UngPedro martinez MD Unavailable [phone] Eric Clark MD Primary Care Provider [phone] Allergies Active Allergy Reactions Criticality Noted Date [...] daily. Active Turmeric, Curcuma Longa, Powder Active escitalopram (LEXAPRO) 20 MG tabletIndications :Moderate episode of recurrent major depressive disorder (CMS/HCC) take 1 tablet by mouth daily 90 tablet 3 08/05/19 24 Active omeprazole (PRILOSEC) 20 MG capsuleIndication s:Gastroesophagea l reflux disease with esophagitis, unspecified whether hemorrhage Take 1 capsule (20 mg total) by mouth 2 (two) times daily. 180 capsule 09/25/19 25 Active ketoconazole (NIZORAL) 2 % cream APPLY TO FEET ONCE DAILY FOR 6 WEEKS 09/27/19 25 Active pramipexole (MIRAPEX) 0.25 MG tabletIndications :Lumbar radiculopathy,Loo se stools Take 1 tablet (0.25 mg total) by mouth daily. 90 tablet 1 10/20/19 25 Active pregabalin (LYRICA) 75 MG capsuleIndication s:Lumbar radiculopathy Take 1 capsule (75 mg total) by mouth every evening. 90 capsule 10/20/19 25 Active cholestyramine (QUESTRAN) 4 G packetIndications :Loose stools Take 1 packet (4 g total) by mouth daily. 60 each 1 10/20/19 25 Active levothyroxine (SYNTHROID) 100 MCG tabletIndications :Acquired hypothyroidism TAKE 1 TABLET BY MOUTH IN THE MORNING WITH WATER ON EMPTY STOMACH 1 HOUR BEFORE BREAKFAST OR 2 HOURS AFTER DINNER WITH NO OTHER MEDS 90 tablet 1 10/21/19 25 Active traZODone (DESYREL) 100 MG tabletIndications :Primary insomnia TAKE 1 AND 1/2 TABLETS BY MOUTH AT BEDTIME 135 tablet 1 11/02/19 25 Active traMADol (ULTRAM) 50 MG tabletIndications :Chronic Pain Take 1 tablet (50 mg total) by mouth every 4 (four) hours as needed. Indications: Chronic Pain FOR PAIN 90 tablet 11/05/19 25 Active buPROPion XL (WELLBUTRIN XL) 150 MG 24 hr tabletIndications :Moderate episode of recurrent major depressive disorder (CMS/HCC) TAKE 1 TABLET BY MOUTH DAILY 90 tablet 3 11/05/19 25 Active meloxicam (MOBIC) 7.5 MG tabletIndications :Arthralgia of right knee TAKE 1 TABLET BY MOUTH EVERY DAY 30 tablet 1 11/18/19 25 Active hydroCHLOROthiazi de (MICROZIDE) 12.5 MG capsuleIndication s:Dependent edema TAKE 1 CAPSULE BY MOUTH EVERY DAY IN THE MORNING 30 capsule 1 12/14/19 25 Active amLODIPine (NORVASC) 2.5 MG tabletIndications :Primary hypertension TAKE 1 TABLET BY MOUTH EVERY DAY 90 tablet 12/16/19 25 Active amLODIPine (NORVASC) 2.5 MG tabletIndications :Primary hypertension Take 1 tablet (2.5 mg total) by mouth daily. 90 tablet 1 06/14/19 25 025 Discontinued hydroCHLOROthiazi de (MICROZIDE) 12.5 MG capsuleIndication s:Dependent edema Take 1 capsule (12.5 mg total) by mouth every morning. 30 capsule 1 10/20/19 25 025 Discontinued Hospital, Clinic, or Other Facility Administered Medication Ordered Dose Route Frequency Start Date End Date Status phenazopyridine (PYRIDIUM) tablet 100 mgIndications:UTI symptoms 100 mg OR 3 times daily with meals 09/19/2023 Active Active Problems Problem Noted Date Diagnosed Date Primary hypertension 09/25/2024 Primary fibromyalgia 12/16/2023 Lumbar radiculopathy 12/12/2022 Overview (12/12/2022): Added automatically from request for surgery [id number] Joint replaced by other means 05/30/2021 Osteoarthritis [...] today. Assessment & Plan (04/22/2018 9:21 AM ECOLOGY TEACHER): Check routine labs to reassess today. Essential tremor 02/13/2017 Overview (04/15/2018): Transitioned From: Resting tremor Assessment & Plan (11/15/2018 5:25 PM CDT): Stable, continues on primidone as prescribed by Dr. Ta, with regular follow- up with him. Improved control of symptoms. No treatment change. Assessment & Plan (04/22/2018 9:19 AM ECOLOGY TEACHER): Patient reports less effectiveness with her primidone. She is scheduled to see her neurologist in the next 3 months and wishes to wait to discuss this with him. It is not causing any side effects or intolerances however. Anemia, mild 12/07/2015 Assessment & Plan (11/15/2018 5:29 PM CDT): Check CBC today. Assessment & Plan (04/22/2018 9:21 AM ECOLOGY TEACHER): Obtain CBC and reevaluate today. 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 Assessment & Plan (04/22/2018 9:24 AM ECOLOGY TEACHER): Obtain routine lab work for reassessment of [...] draw. Assessment & Plan (04/22/2018 9:20 AM ECOLOGY TEACHER): Stable on current medication and regimen. However, her insurance is going to require her to change dosing with her next renewal. We will plan on changing her to 40 mg once daily when that occurs and continue to monitor for any breakthrough symptoms. Vitamin D deficiency 02/08/2015 Assessment & Plan (04/22/2018 9:20 AM ECOLOGY TEACHER): Check vitamin D level for chronic medication use today. Moderate episode of recurrent major depressive d isorder 06/15/2014 Assessment & Plan (11/15/2018 5:29 PM CDT): Stable on current dosing of trazodone nightly. Continue to monitor. Patient reports improved stress related to family. Assessment & Plan (04/22/2018 9:23 AM ECOLOGY TEACHER): Stable at present on current medications. No change in therapy. Pseudophakia of both eyes 05/05/2014 Pernicious anemia 04/02/2013 Assessment & Plan (04/22/2018 9:22 AM ECOLOGY TEACHER): Continues on vitamin B12 supplements, check levels today. Arthritis of multiple sites 06/24/2012 Overview (04/15/2018): Annotation - [id number]: right hip; left knee; Ran Hopson MD Assessment & Plan (11/15/2018 5:27 PM CDT): Reasonably controlled with intermittent use of ibuprofen as well as tramadol. Review of [place] Prescription Monitoring Program website indicates no misuse or abuse. Continue tramadol dosing. Assessment & Plan (04/22/2018 9:20 AM ECOLOGY TEACHER): Stable on current regimen, with intermittent use [...] plan. Assessment & Plan (04/22/2018 9:21 AM ECOLOGY TEACHER): Patient continues on current regimen. New insurance pharmacy management is going to require a change to generic levothyroxine. We will do that with her next renewal. Encouraged to monitor for any symptoms or other side effects with the change of medication. Check TSH today. Resolved Problems Problem Noted Date Diagnosed Date Resolved Date Hip pain 07/27/2020 07/27/2020 SBO (small bowel obstruction ) ([facility]) 12/20/2019 01/28/2020 Gastric outlet obstruction ([facility]) 12/20/2019 01/28/2020 Class 1 obesity due to exces s calories with serious comorbidity and body mass index (BMI) of 30.0 to 30.9 in adult 11/17/2019 01/15/2022 Acute non-recurrent sinusiti s, unspecified location 03/25/2018 04/15/2018 Dysuria 01/16/2018 04/22/2018 Superficial thrombophlebitis 07/11/2017 04/22/2018 Wears glasses 03/03/2017 01/14/2020 Sinus bradycardia 07/27/2020 Encounters Date Type Department Care Team Description 12/22/2024 Telephone [facility] Medical [facility] Family & Internal Medicine [id number] [place] [address] Eric Clark MD Medication 12/17/2024 Scan [facility] INFO SRVCS Scanned, Doc Med Group 10/26/2024 Telephone [facility] Family & Internal Medicine [id number] [place] [address] Eric Clark MD Edema 10/19/2024 9:40 AM CDT Office Visit [facility] Family & Internal Medicine [address] [address] Eric Clark MD Swelling (Pt c/o swelling in both feet and ankle /Pt state she noticed it about a week ago ) 10/19/2024 Travel 09/24/2024 10:00 AM CDT Office Visit [facility] Family & Internal Medicine [address] [address] Eric Clark MD Follow Up; Arthritis 09/24/2024 Travel from Last 3 Months Immunizations Immunization [...] 02/08/2017 Pneumococcal (Prevnar 13) 04/22/2018 Zoster (Zostavax) 62605 Unt/0.65Ml 04/24/2012 Family History Medical History Relation [...] Date Recorded Patient Health Questionnaire-2 Score 0 10/19/2024 Comments No Sex and Gender Information Value Date Recorded Sex Assigned at Female 03/25/2018 2:13 PM ECOLOGY TEACHER Legal Sex Female 10:53 PM CDT Gender Identity Female 03/25/2018 2:13 PM ECOLOGY TEACHER Sexual Orientation Straight 03/25/2018 2: 13 PM ECOLOGY TEACHER Occupation Industry Job Start Date Job End Date Not on file Not on file Not on file Not on file Last Filed Vital Signs Vital Sign Reading Time Taken Comments Blood Pressure 139/76 10/19/2024 9:52 AM CDT Pulse 62 10/19/2024 9:52 AM CDT Temperature 36.8 C (98.2 F) 10/19/2024 9:52 AM CDT Respiratory Rate 16 10/19/2024 9:52 AM CDT Oxygen Saturation 97% 10/19/2024 9:52 AM CDT Inhaled Oxygen Concentration - - Weight 75.3 kg (166 lb) 10/19/2024 9:52 AM CDT Height 154.9 cm (5' 1) 10/19/2024 9:52 AM CDT Body Mass Index 31.37 10/19/2024 9:52 AM CDT Plan of Treatment Upcoming Encounters Date Type Department Care Team (Late st Contact Info) Description 01/04/2025 10:20 AM CDT Office Visit [facility] Medical Group Family & Internal Medicine [facility] [id number] [place] [address] [place] [address] [place] [address] Health Maintenance Due Date Last Done Comments Annual Medicare Wellness Visit 2010 Zoster Vaccines (2 of 3) 06/19/2012 04/24/2012 RSV Immunization or 60+ Years (1 - 1-dose 75+ series) 2020 COVID-19 Vaccine (6 - season) 2024 02/04/2023, 01/17/2022, 02/21/2021, Additional history exists DTaP, Tdap and Td Vaccines (1 - Tdap) 11/02/2028 Postponed from 1964 (Per Provider Recommendation) Colorectal Cancer Screening Colonoscopy (10 Years) Discontinued 07/15/2012 Pneumococcal Vaccine: 50+ Years Completed 04/22/2018, 02/08/2017 Hepatitis C Completed 05/22/2022 Dexa Scan (General) Completed 07/12/2022 PHQ-2 (Physician [place]) Completed 10/19/2024 Meningococcal B Vaccine Aged Out No l onger eligible based on patient's age to complete this topic Meningococcal Vaccine Aged Out No sea lita eligible based on patient's age to complete this topic RSV Immunizations Under 20 Months Aged Out No longer eligible based on patient's age to complete this topic Medical Devices Implanted Type Area Tile Grader Device Identifier Shelf Expiration Date Model / Serial / Lot Hip Components Hip Components 3.5mm Locking Hexalobe Screws Implanted:Qty: 1 on 11/30/2019 by Pedro Barnhart MD at [facility] Left: Wrist / / Proximal Vdr Narrow Plate Left Implanted:Qty: 1 on 11/30/2019 by Pedro Barnhart MD at [facility] Left: Wrist / / 3.5mm Non Locking Hexalobe Screw Implanted:Qty: 1 on 11/30/2019 by Pedro Barnhart MD at [facility] Left: Wrist / / 2.3mm Fully Threaded Locking Screws (Gold) Implanted:Qty: 2 on 11/30/2019 by Pedro Barnhart MD at [facility] Left: Wrist / [id number] / 2.3mm Smooth Locking Pegs (Gold) Implanted:Qty: 1 on 11/30/2019 by Pedro Barnhart MD at [facility] Left: Wrist / / [id number] Explanted Type Area Tile Grader Device Identifier Shelf Expiration Date Model / Serial / Lot 2.0 Quick Release Drill Bit Explanted:Qty: 1 on 11/30/2019 by Pedro Barnhart MD at [facility] Left: Wrist / [id number] / Guide Wire Explanted:Qty: 3 on 11/30/2019 by Pedro Barnhart MD at [facility] Left: Wrist / [id number] / 2.8 Quick Release Drill Bit Explanted:Qty: 1 on 11/30/2019 by Pedro Barnhart MD at [facility] Left: Wrist / [id number] / 2.8 Quick Release Drill Bit Explanted:Qty: 1 on 11/30/2019 at [facility] Left: Wrist / [id number] / Procedures Procedure Name Priority Date/Time Associated Diagnosis Comments BONE DENSITY/DEXA Routine 07/12/2022 11: 10 AM ECOLOGY TEACHER Post-menopausal Osteopenia Osteoporosis HEPATITIS C ANTIBODY Routine 05/22/2022 9:53 AM ECOLOGY TEACHER Lupus Sjogren syndrome with central nervous system involvement Systemic lupus erythematosus Peripheral nerve disorder Fatigue Senile arthritis Hypomagnesemia Impaired glucose tolerance test Vitamin D deficiency Vitamin B12 deficiency Encounter for therapeutic drug monitoring COLONOSCOPY Routine 07/15/2012 12:00 AM CDT from Last 3 Months or Most Recently Relevant to Health Maintenance Results * BONE DENSITY/DEXA (07/12/2022 11:10 AM ECOLOGY TEACHER) Anatomical Region Laterality Modality Bone Bone Density 07/12/2022 11:1 2 AM ECOLOGY TEACHER Narrative 07/12/2022 11:14 AM ECOLOGY TEACHER IMAGING STUDIES: BONE DENSITY/DEXA DATE: 07/12/2022 10:59 [...] imaging in one year.. Ordered By: ELAN EWING Interpreted By: Mayra Joseph, 07/12/2022 11:12 AM [...] repeat imaging in oneyear.. Ordered By: ELAN EWING Interpreted By: Mayra Joseph, 07/12/2022 11:12 AM us Elan Ewing MD DEXA Final Result * HEPATITIS C ANTIBODY (05/22/2022 9:53 AM ECOLOGY TEACHER) HEPATITIS C AB NON-REACTI VE NON-REACTI VE 05/22/2022 2:49 PM ECOLOGY TEACHER [facility] 05/22/2022 9:53 AM ECOLOGY TEACHER us Elan Ewing MD LABORATORY Final Result Performing Organization Address City/[facility]/ZIP Co de Phone Number [facility] [address] [place] [address], * Colonoscopy (07/15/2012 12:00 AM CDT) 07/15/2012 07/15/2012 Narrative [facility] TO EPIC CONVERSION - 07/15/2012 12:00 AM CDT Documented hx of procedure Procedure Note Md Generic Darnell, - 03/08/2018 Documented hx of procedure us Generic Conversion Md [facility] GI PROCEDURE ORDERABLES Final Result Performing Organization Address City/[facility] Co de Phone Number [facility] TO EPIC CONVERSION from Last 3 Months or Most Recently Relevant to Health Maintenance Insurance MEDICARE ALLIED BENEFITS MEDICARE [facility] Advance Directives * No Code Status (Latest Code Status on File) Date Activated Date Inactivated Comments 07/02/2022 9:08 AM 03/17/2023 9:17 AM all routine medication should be sent to [facility] please * Full Code Date Activated Date Inactivated Comments 12/21/2019 8:23 AM 12/25/2019 1:18 PM * Full Code Date Activated Date Inactivated Comments 12/14/2019 10:08 PM 12/20/2019 6:39 PM Care Teams Shearing Machine Tender Relationship Specialty [place] [address] [place] [address] PCP - General FAMILY PRACTICE 07/19/21 Stanley Mello MD [address] [address] [place] CARDIOVASCULAR DISEASE 10/03/17 Gilbert Pablo MD [address] [phone] [place] [address] Consulting Physician SURGERY 03/22/21 Zeyad Lozano MD [address] [facility] [address] [place] [address] Consulting Physician NEUROLOGY 03/22/21 Pedro Barnhart MD [address] [place] [address] Consulting Physician ORTHOPAEDIC SURGERY 03/22/21
--- OUTSIDE RECORDS SUMMARY | 2024-12-23 10:21 | XMS_ITS | Encounter Summary ---
Author Organization [facility] Address [address] [place] [address] Care Team Providers Care Want Ad Receiver Name Role Phone Stanley Mello MD Unavailable [phone] Gilbert Pablo MD Unavailable Zeyad Lozano MD Unavailable [phone] Pedro Barnhart MD Unavailable [phone] Eric Clark MD Primary Care Provider [phone] Encounter Details Date Type Department Care Team (Latest Contact Info) Description 12/17/2024 Scan HEALTH INFO SRVCS Scanned, Doc Med Group Social History Tobacco Use Types Packs/Day Years Used Date Smoking Tobacco: Former Cigarettes 0.5 1 1 979 - 1980 Smokeless Tobacco: Never Comments:former smoker Alcohol Use Standard Drinks/Week Comments Yes 0 (1 standard drink = 0.6 oz pur e alcohol) rare PHQ-2 Answer Date Recorded Patient Health Questionnaire-2 Score 0 10/19/2024 Comments No Sex and Gender Information Value Date Recorded Sex Assigned at Female 03/25/2018 2:13 PM MOTORBOAT MECHANIC HELPER Legal Sex Female 10:53 PM CDT Gender Identity Female 03/25/2018 2:13 PM MOTORBOAT MECHANIC HELPER Sexual Orientation Straight 03/25/2018 2: 13 PM MOTORBOAT MECHANIC HELPER Occupation Industry Job Start Date Job End Date Not on file Not on file Not on file Not on file documented as of this encounter Functional Status * RETIRED Are you deaf or do you have serious difficulty hearing Answer Date of Assessment Author Status No 12/20/2019 7:37 PM CDT Activ e * RETIRED Are you blind or do you have serious difficulty seeing, even when wearing glasses? Answer Date of Assessment Author Status No 12/20/2019 7:37 PM CDT Activ e * Do you have serious difficulty walking or climbing stairs? Answer Date of Assessment Author Status No 12/20/2019 7:37 PM CDT Gilbert Lawson RN Active * Do you have difficulty dressing or bathing? Answer Date of Assessment Author Status No 12/20/2019 7:37 PM CDT Gilbert Lawson RN Active * Because of a physical, mental, or emotional condition, do you have difficulty doing errands alone such as visiting a doctor's office or shopping? Answer Date of Assessment Author Status No 12/20/2019 7:37 PM CDT Gilbert Lawson RN Active documented as of this encounter Mental Status * Because of a physical, mental, or emotional condition, do you have serious difficulty concentrating, remembering, or making decisions? Answer Entry Date Author Status No 12/20/2019 7:37 PM CDT Gilbert Lawson RN Active documented in this encounter Plan of Treatment Upcoming Encounters Date Type Department Care Team (Late st Contact Info) Description 01/04/2025 10:20 AM CDT Office Visit [facility] Medical Group Family & Internal Medicine [facility] [address] [place] [address] [place] [address] [place], [place] [id number] documented as of this encounter Visit Diagnoses Not on filedocumented in this encounter Additional Health Concerns Assessment Noted Time PHQ-9 Depression Total Score: 12 022 8:33 AM CDT documented as of this encounter Care Teams Want Ad Receiver Relationship Specialty Start [place] [address] [place], [place] [id number] PCP - General FAMILY PRACTICE 07/19/21 Stanley Mello MD [address] [address] [place] [employer] CARDIOVASCULAR DISEASE 10/03/17 Gilbert Pablo MD [address] [phone] [place] [address] Consulting Physician SURGERY 03/22/21 Zeyad Lozano MD [address] [address] Consulting Physician NEUROLOGY 03/22/21 Pedro Barnhart MD [address] [place] [address] [address] Consulting Physician ORTHOPAEDIC SURGERY 03/22/21 documented as of this encounter
--- OUTSIDE RECORDS SUMMARY | 2024-12-23 10:21 | XMS_ITS | Encounter Summary ---
Author Organization [facility] Address [facility] [place] [address] Care Team Providers Care Rental Counter Clerk Name Role Phone Pablo Vaughn MD Primary Care Provider [phone] Stanley Mello MD Unavailable [phone] Gilbert Pablo MD Unavailable Zeyad Lozano MD Unavailable [phone] Pedro Barnhart MD Unavailable [phone] Eric Clark MD Primary Care Provider Encounter Details Date Type Department Care Team (Late st Contact Info) Description 11/29/2019 Hospital Orders Only [facility] Day [facility] [address] [place], [place] [id number] Pedro Barnhart MD [address] [address] Social History Tobacco Use Types Packs/Day Years Used Date Smoking Tobacco: Former Cigarettes Q uit: 1980 Smokeless Tobacco: Never Alcohol Use Standard Drinks/Week Comments Yes 0 (1 standard drink = 0.6 oz pur e alcohol) little PHQ-2 Answer Date Recorded PHQ-2 Score 2 11/17/2019 Comments No Sex and Gender Information Value Date Recorded Sex Assigned at Female 03/25/2018 2:13 PM SATELLITE TECHNICIAN Legal Sex Female 10:53 PM CDT Gender Identity Female 03/25/2018 2:13 PM SATELLITE TECHNICIAN Sexual Orientation Straight 03/25/2018 2: 13 PM SATELLITE TECHNICIAN Occupation Industry Job Start Date Job End [...] Description 01/04/2025 10:20 AM CDT Office Visit [facility] Medical Group Family & Internal Medicine [facility] [address] [place] [address] [place] [address] [place], [place] [phone] documented as of this encounter Visit Diagnoses Not on filedocumented in this encounter Additional Health Concerns Infection Onset Date Last Indicated Resolved Time COVID-19 Rule Out 11/29/2019 11/29/2019 11/29/2019 4:09 PM CDT COVID-19 Rule Out 12/21/2019 12/21/2019 12/21/2019 11:45 AM CDT documented as of this encounter Care Teams Rental Counter Clerk Relationship Specialty Start Date End Date Pablo Vaughn MD PCP - General INTERNAL MEDICINE 10/03/17 07/18/21 [place] [address] [place] [address] PCP - General FAMILY PRACTICE 07/19/21 Stanley Mello MD [facility]. [facility] [address] [place] [address] [employer] Salesperson CARDIOVASCULAR DISEASE 10/03/17 Gilbert Pablo MD [facility] [address] [facility] [phone] [place] [address] Consulting Physician SURGERY 03/22/21 Zeyad Lozano MD [address] [place] [address] Consulting Physician NEUROLOGY 03/22/21 Pedro Barnhart MD [address] [address] Consulting Physician ORTHOPAEDIC SURGERY 03/22/21 documented as of this encounter
--- OUTSIDE RECORDS SUMMARY | 2024-12-23 10:21 | XMS_ITS | Encounter Summary ---
Author Organization [facility] Address [facility] [place] [address] Care Team Providers Care Relations Director Name Role Phone Pablo Vaughn MD Primary Care Provider + [phone] Stanley Mello MD Unavailable [phone] Gilbert Pablo MD Unavailable Zeyad Lozano MD Unavailable [phone] Pedro Barnhart MD Unavailable [phone] Eric Clark MD Primary Care Provider [phone] Encounter Details Date Type Department Care Team (Late st Contact Info) Description 11/29/2019 Prep for Procedure [facility] [address] [place], [place] [id number] Pedro Barnhart MD [address] [address] Social History Tobacco Use Types Packs/Day Years Used Date Smoking Tobacco: Former Cigarettes Q uit: 1980 Smokeless Tobacco: Never Alcohol Use Standard Drinks/Week Comments Yes 0 (1 standard drink = 0.6 oz pur e alcohol) little PHQ-2 Answer Date Recorded PHQ-2 Score 2 11/17/2019 Comments No Sex and Gender Information Value Date Recorded Sex Assigned at Female 03/25/2018 2:13 PM CHECK OUT CASHIER Legal Sex Female 10:53 PM CDT Gender Identity Female 03/25/2018 2:13 PM CHECK OUT CASHIER Sexual Orientation Straight 03/25/2018 2: 13 PM CHECK OUT CASHIER Occupation Industry Job Start Date Job End [...] Description 01/04/2025 10:20 AM CDT Office Visit [facility] Medical Group Family & Internal Medicine [facility] [address] [place] [address] [place] [address] [place] [address] documented as of this encounter Results * ECG 12-Lead (11/29/2019 1:51 PM CDT) 11/29/2019 1:51 PM CDT Narrative [facility] ([facility]) RAD - 11/29/2019 4:26 PM CDT [facility] Test Date: 2019-11-29 Pat Name: LEAH TAPIA Department: Room: Gender: Female Rn Case Manager Hospice: : 1945 Requested By: PEDRO BARNHART Order Number: [id number] Reading MD: Mars Mcintosh Measurements Intervals [place] Rate: 60 P: 26 KS: 152 QRS: 1 QRSD: 84 T: 23 QT: 383 QTc: 386 Interpretive Statements SINUS RHYTHM LOW QRS VOLTAGE IN PRECORDIAL LEADS [QRS DEFLECTION < 1.0 mV IN CHEST LEADS] No previous ECG available for comparison Procedure Note Mars Mcintosh MD - 11/29/2019 [facility] Test Date: 2019-11-29 Pat Name: LEAH SHORTACE Department: Room: Gender: Female Rn Case Manager Hospice: : 1945 Requested By: PEDRO BARNHART Order Number: [id number] Reading MD: Mars Mcintosh Measurements Intervals [place] Rate: 60 P: 26 KS: 152 QRS: 1 QRSD: 84 T: 23 QT: 383 QTc: 386 Interpretive Statements SINUS RHYTHM LOW QRS VOLTAGE IN PRECORDIAL LEADS [QRS DEFLECTION < 1.0 mV IN CHESTLEADS] No previous ECG available for comparison us Pedro Barnhart MD ECG ORDERABLES Final Result [facility] ([facility]) RAD * RESPIRATORY PCR PANEL 2 (11/29/2019 11:34 AM CDT) ADENOVIRUS PCR (RESP) NOT DETECTED NOT DETECTED 11/29/2019 4:09 PM CDT [facility] CORONAVIRUS 229E PCR (RESP) NOT DETECTED NOT DETECTED 11/29/2019 4:09 PM CDT [facility] CORONAVIRUS HKU1 PCR (RESP) NOT DETECTED NOT DETECTED 11/29/2019 4:09 PM CDT [facility] CORONAVIRUS NL63 PCR (RESP) NOT DETECTED NOT DETECTED 11/29/2019 4:09 PM CDT [facility] CORONAVIRUS OC43 PCR (RESP) NOT DETECTED NOT DETECTED 11/29/2019 4:09 PM CDT [facility] METAPNEUMOVIRUS PCR (RESP) NOT DETECTED NOT DETECTED 11/29/2019 4:09 PM CDT [facility] RHINOVIRUS/ENTEROV IRUS PCR (RESP) NOT DETECTED NOT DETECTED 11/29/2019 4:09 PM CDT [facility] INFLUENZA A PCR (RESP) NOT DETECTED NOT DETECTED 11/29/2019 4:09 PM CDT [facility] INFLUENZA B PCR (RESP) NOT DETECTED NOT DETECTED 11/29/2019 4:09 PM CDT [facility] PARAINFLUENZA 1 PCR (RESP) NOT DETECTED NOT DETECTED 11/29/2019 4:09 PM CDT [facility] PARAINFLUENZA 2 PCR (RESP) NOT DETECTED NOT DETECTED 11/29/2019 4:09 PM CDT [facility] PARAINFLUENZA 3 PCR (RESP) NOT DETECTED NOT DETECTED 11/29/2019 4:09 PM CDT [facility] PARAINFLUENZA 4 PCR (RESP) NOT DETECTED NOT DETECTED 11/29/2019 4:09 PM CDT [facility] RSV PCR (RESP) NOT DETECTED NOT DETECTED 11/29/2019 4:09 PM CDT [facility] B PARAPERTUSIS PCR (RESP) NOT DETECTED NOT DETECTED 11/29/2019 4:09 PM CDT [facility] BORDETELLA PERTUSSIS PCR (RESP) NOT DETECTED NOT DETECTED 11/29/2019 4:09 PM CDT [facility] CHLAMYDOPHILA PNEUMONIAE PCR (RESP) NOT DETECTED NOT DETECTED 11/29/2019 4:09 PM CDT [facility] MYCOPLASMA PNEUMONIAE PCR (RESP) NOT DETECTED NOT DETECTED 11/29/2019 4:09 PM CDT [facility] CORONAVIRUS SARS COV 2 PCR (RESP) NOT DETECTED NOT DETECTED 11/29/2019 4:09 PM CDT [facility] Comment: THE SARS-CoV-2 TEST HAS BEEN AUTHORIZED BY THE FDA UNDER AN EUA FOR USE BY AUTHORIZED LABORATORIES. NASOPHARYNGEAL STRUCTURE / Unknown 11/29/2019 11:34 AM CDT us Pedro Barnhart MD MICROBIOLOGY - GENERAL ORDERA BLES Final Result [facility] [address] [place] [address], documented in this encounter Visit Diagnoses Diagnosis Preoperative testing- Primary Preoperative examination, unspecified Preoperative clearance Preoperative examination, unspecified Preoperative clearance Preoperative examination, unspecified documented in this encounter Additional Health Concerns Infection Onset Date Last Indicated Resolved Time COVID-19 Rule Out 11/29/2019 11/29/2019 11/29/2019 4:09 PM CDT COVID-19 Rule Out 12/21/2019 12/21/2019 12/21/2019 11:45 AM CDT documented as of this encounter Care Teams Relations Director Relationship Specialty Start Date End Date Pablo Vaughn MD PCP - General INTERNAL MEDICINE 10/03/17 07/18/21 [place] [address] [place] [address] PCP - General FAMILY PRACTICE 07/19/21 Stanley Mello MD Three [facility]. [address] [place] [address] [place] [employer] Supervisor CARDIOVASCULAR DISEASE 10/03/17 Gilbert Pablo MD [address] [facility] [phone] [place] [address] Consulting Physician SURGERY 03/22/21 Zeyad Lozano MD [address] [place] [id number] Consulting Physician NEUROLOGY 03/22/21 Pedro Barnhart MD [address] [place] [address] Consulting Physician ORTHOPAEDIC SURGERY 03/22/21 documented as of this encounter
--- OUTSIDE RECORDS SUMMARY | 2024-12-23 10:21 | XMS_ITS | Clinical Summary ---
Author Organization [facility] Address [address], [facility] [address] [place] [address] Phone Care Team Providers Care Stitcher Standard Machine Name Role Phone Pablo Vaughn MD Primary Care Provider [phone] Gehrard Colin MD Unavailable [phone] Allergies Active Allergy Reactions Criticality Noted Date [...] Lnp-s, Pf, 3 0 Mcg/0.3 Ml Dose ([employer]) 07/22/2020,07/01/2020 Influenza Vaccine 01/17/2020 Influenza Vaccine,unspecifie d [...] age to complete this topic Insurance MEDICARE [facility] Care Teams Stitcher Standard Machine Relationship Specialty [place] [address] [address] PCP - General General Surgery 02/01/20 Gerhard Colin MD [address] [place] [phone] Consulting Physician Oncology 04/12/20
--- OUTSIDE RECORDS SUMMARY | 2024-12-23 10:21 | XMS_ITS | Encounter Summary ---
Author Organization [facility] Address [address] [place] [address] Care Team Providers Care Photostat Operator Name Role Phone Pablo Vaughn MD Primary Care Provider + [phone] Stanley Mello MD Unavailable [phone] Gilbert Pablo MD Unavailable Zeyad Lozano MD Unavailable [phone] Pedro Barnhart MD Unavailable [phone] Eric Clark MD Primary Care Provider [phone] Encounter Details Date Type Department Care Team (Late st Contact Info) Description 01/06/2018 [facility] at [address] [address] Fede Turcios MA Social History Tobacco Use Types Packs/Day Years Used Date Smoking Tobacco: Former Alcohol Use Standard Drinks/Week Comments No 0 (1 standard drink = 0.6 oz pur e alcohol) Comments Unknown Sex and Gender Information Value Date Recorded Sex Assigned at Female 03/25/2018 2:13 PM DRILL FOREMAN Legal Sex Female 10:53 PM CDT Gender Identity Female 03/25/2018 2:13 PM DRILL FOREMAN Sexual Orientation Straight 03/25/2018 2: 13 PM DRILL FOREMAN Occupation Industry Job Start Date Job End [...] Description 01/04/2025 10:20 AM CDT Office Visit [facility] Medical Group Family & Internal Medicine [facility] [address] [place] [address] [place] [address] [place] [address] documented as of this encounter [...] documented as of this encounter Care Teams Photostat Operator Relationship Specialty Start Date End Date Pablo Vaughn MD PCP - General INTERNAL MEDICINE 10/03/17 07/18/21 [place] [address] [place] [address] PCP - General FAMILY PRACTICE 07/19/21 Stanley Mello MD [facility]. [address] [address] [place] [facility] CARDIOVASCULAR DISEASE 10/03/17 Gilbert Pablo MD [address] [facility] [phone] [place] [address] Consulting Physician SURGERY 03/22/21 Zeyad Lozano MD [address] [place] [address] Consulting Physician NEUROLOGY 03/22/21 Pedro Barnhart MD [address] [place] [address] [address] Consulting Physician ORTHOPAEDIC SURGERY 03/22/21 documented as of this encounter
--- OUTSIDE RECORDS SUMMARY | 2024-12-23 10:21 | XMS_ITS | Encounter Summary ---
Author Organization [facility] Address [facility] [place] [address] Care Team Providers Care National Coverage Specialist Name Role Phone Pablo Vaughn MD Primary Care Provider + [phone] Stanley Mello MD Unavailable [phone] Gilbert Pablo MD Unavailable Zeyad Lozano MD Unavailable [phone] Pedro Barnhart MD Unavailable [phone] Eric Clark MD Primary Care Provider [phone] Encounter Details Date Type Department Care Team (Late st Contact Info) Description 06/16/2015 Abstract [facility] CONVERSION [address] [place] [id number] , Yelena Patrick MD Social History Tobacco Use Types Packs/Day Years Used Date Smoking Tobacco: Never Assessed Comments Unknown Sex and Gender Information Value Date Recorded Sex Assigned at Female 03/25/2018 2:13 PM CAREER SERVICES ASSISTANT Legal Sex Female 10:53 PM CDT Gender Identity Female 03/25/2018 2:13 PM CAREER SERVICES ASSISTANT Sexual Orientation Straight 03/25/2018 2: 13 PM CAREER SERVICES ASSISTANT documented as of this encounter Plan of Treatment Upcoming Encounters Date Type Department Care Team (Late Contact Info) Description 01/04/2025 10:20 AM CDT Office Visit [facility] Medical Group Family & Internal Medicine [facility] [address] [place] [phone] [place] [address] [place] [address] documented as of this encounter Visit Diagnoses Not on filedocumented in this encounter Additional Health Concerns Infection Onset Date Last Indicated Resolved Time COVID-19 Rule Out 11/29/2019 11/29/2019 11/29/2019 4:09 PM CDT COVID-19 Rule Out 12/21/2019 12/21/2019 12/21/2019 11:45 AM CDT documented as of this encounter Care Teams National Coverage Specialist Relationship Specialty Start Date End Date Pablo Vaughn MD PCP - General INTERNAL MEDICINE 10/03/17 07/18/21 [place] [address] [facility] [place] [address] PCP - General FAMILY PRACTICE 07/19/21 Stanley Mello MD Three [facility] [address] [place] [address] [place] Nurse Licensed Practical CARDIOVASCULAR DISEASE 10/03/17 Gilbert Pablo MD [address] [facility] [phone] [place] [address] Consulting Physician SURGERY 03/22/21 Zeyad Lozano MD [address] [place] [phone] Consulting Physician NEUROLOGY 03/22/21 Pedro Barnhart MD [address] [place] [address] Consulting Physician ORTHOPAEDIC SURGERY 03/22/21 documented as of this encounter
--- OUTSIDE RECORDS SUMMARY | 2024-12-23 10:21 | XMS_ITS | Encounter Summary ---
Author Organization [facility] Address [address] [place] [address] Care Team Providers Care Brick Burner Name Role Phone Stanlye Mello MD Unavailable [phone] Gilbert Pablo MD Unavailable Zeyad Lozano MD Unavailable [phone] Pedro Barnhart MD Unavailable [phone] Eric Clark MD Primary Care Provider [phone] Reason for Visit * Reason Onset Date Comments Medication 12/22/2024 Encounter Details Date Type Department Care Team (Late st Contact Info) Description 12/22/2024 Telephone [facility] Medical Group Family & Internal Medicine [facility] [address] [place] [address] Eric Clark MD [address] [place] [address] Medication Social History Tobacco Use Types Packs/Day Years Used Date Smoking Tobacco: Former Cigarettes 0.5 1 1 319 - 3625 Smokeless Tobacco: Never Comments:former smoker Alcohol Use Standard Drinks/Week Comments Yes 0 (1 standard drink = 0.6 oz pur e alcohol) rare PHQ-2 Answer Date Recorded Patient Health Questionnaire-2 Score 0 10/19/2024 Comments No Sex and Gender Information Value Date Recorded Sex Assigned at Female 03/25/2018 2:13 PM AIR TECHNICIAN Legal Sex Female 10:53 PM CDT Gender Identity Female 03/25/2018 2:13 PM AIR TECHNICIAN Sexual Orientation Straight 03/25/2018 2: 13 PM AIR TECHNICIAN Occupation Industry Job Start Date Job [...] Lawson RN Active documented in this encounter Progress Notes * Delia Hagen RN - 12/22/2024 12:55 PM CDT Noted. * Consuelo Oliver - 12/22/2024 9:04 AM CDT Pt called as she will like to talk with the provider regarding the GLP1 patch. Appt set for 01/04 to discuss. documented in this encounter Plan of Treatment Upcoming Encounters Date Type Department Care Team (Late st Contact Info) Description 01/04/2025 10:20 AM CDT Office Visit [facility] Medical Group Family & Internal Medicine [facility] [address] [place] [address] [place] [address] [place] [address] documented as of this encounter Visit Diagnoses Not on filedocumented in this encounter Additional Health Concerns Assessment Noted Time PHQ-9 Depression Total Score: 12 022 8:33 AM CDT documented as of this encounter Care Teams Brick Burner Relationship Specialty [place] [address] [place] [address] PCP - General FAMILY PRACTICE 07/19/21 Stanley Mello MD Three [facility]. [facility] [address] [place] [address] [place] Electrical Test Technician CARDIOVASCULAR DISEASE 10/03/17 Gilbert Pablo MD [address] [facility] [phone] [place] [address] Consulting Physician SURGERY 03/22/21 Zeyad Lozano MD [address] [facility] [address] [place] [id number] Consulting Physician NEUROLOGY 03/22/21 Pedro Barnhart MD [address] [facility] 1 [place] [address] Consulting Physician ORTHOPAEDIC SURGERY 03/22/21 documented as of this encounter
--- OUTSIDE RECORDS SUMMARY | 2024-12-23 10:21 | XMS_ITS | Clinical Summary ---
Author Organization [facility] Address [address] [place] [address] Care Team Providers Care Photographic Laboratory Technician Name Role Phone Pablo Vaughn MD Primary [...] on file Legal Sex Female 1:10 AM BENZENE STILL UTILITY OPERATOR Gender Identity Not on file Sexual Orientation [...] of Treatment Not on file Insurance MEDICARE [facility] [employer] [place] Care Teams Photographic Laboratory Technician Relationship Specialty Start Date End Date Pablo Vaughn MD PCP - General 08/09/14
[2024-12-23 11:23] LABS: Hematocrit 36.9 % (37.0-47.0); Hemoglobin 11.1 g/dL (12.0-15.0); Immature Granulocyte Percent A 0.2 % (0-0.5); Lymphocytes Absolute Auto 1.62 K/mm3 (0.9-3.2); Mean Corpuscular HGB Conc 30.1 g/dl (32-36); Mean Corpuscular Hemoglobin 31.2 pg (26-34); Mean Corpuscular Volume 103.7 fl (80-100); Nucleated Red Blood Cells Absolute Auto 0.000 K/mm3 (0.0-0.012); Nucleated Red Blood Cells Perc 0.0 % (0.0-0.2); Platelet Count Result 167 k/mm3 (150-375); Red Blood Count 3.56 M/mm3 (4.2-5.4); White Blood Count 4.8 K/mm3 (4.5-10.0)
[2024-12-23 11:27] LABS: Hemoglobin A1C 5.0 % (<5.7)
[2024-12-23 11:37] LABS: Albumin Level 4.1 g/dL (3.5-5.1); Anion Gap 5 mmol/L (4-12); Blood Urea Nitrogen 19 mg/dL (7-17); Calcium 9.8 mg/dL (8.4-10.2); Carbon Dioxide 29 mmol/L (22-30); Chloride 104 mmol/L (98-107); Estimated Glomerular Filt Rate 47; Glucose 92 mg/dL (65-110); Potassium 5.0 mmol/L (3.4-5.0); Sodium 138 mmol/L (137-145)
== END 2024-12-23 09:42 | disposition home or self-care (01) ==
LOC: ANHSURGERY 09:48
PROVIDERS: PCP Family Medicine; Visit Provider Orthopaedic Surgery
DX: M17.12 Unilateral primary osteoarthritis, left knee (principal); Z01.818 Encounter for other preprocedural examination
CPT/HCPCS: 80048; 80307; 82040; 83036; 85025; 87081

== ENCOUNTER 2025-01-13 01:05 | Day surgery (SDC) | payer MEDICARE, BC, SELFPAY ==
--- OUTSIDE RECORDS SUMMARY | 2014-12-21 05:45 | XMS_ITS | Continuity of Care Document ---
Author Organization [facility] Address [address] [place] [address] Phone Care Team Providers Care Caser Name Role Phone Migel Franklin MD Unavailable Unavailable Advance Directives Directive Yes / No Effective Date File Name No Information Encounters Encounter Description Practice Location Reason(s) For Visit Diagnoses Date Provider Providers Copied on Encounter [facility], [address], [place], [place], [address], tel:[phone] [facility] No Information Rigoberto Lainez. [address] , [place], [place], [address], [place]. tel:[phone] Referring Provider: Yohannes Rivero DO, [address], [place], [address]. tel:[phone] Family History Family Member Type Diagnosis Age At Onset No Information Payers Payer name Insurance type Covered green party ID Authoriza tion(s) MEDICARE [id number] [employer] 3 CI [id number] 2 Social History Type Description Quantity Date [...]
[2024-12-23 10:17] VITALS: BP 149/63; PULSE 55; RESP 16; TEMP 36.8; O2SAT 100; BMI 34.9
--- NOTE | 2024-12-23 10:39 | PC.NURSE ---
Report to the Outpatient Waiting Room, entrance under the green pavilion located off [facility], at time __6:00am___ on date __01/13/25___. Planned Procedure Time: ___7:30am___.? Time changes happen often and if your time is changed the preop area will call you the afternoon before. - You and your visitor will be asked to self-screen and do not enter if you have any COVID symptoms. Please call surgeon if you need to reschedule. - A mask is optional within the hospital at this time. Patients may have clear liquids (water, carbonated beverages, clear teas, apple juice) until 3 hours prior to surgery (4:30AM) with a maximum of 20 ounces. - No food from midnight until time of surgery and no smoking, or chewing tobacco (or any form of nicotine). No chewing gum, candy or mints. Take only the following medications with a SIP of water on the morning of surgery: __BUPROPION, ESCITALOPRAM, SYNTHROID, PROPRANOLOL TRAMADOL NEEDED FOR PAIN DO NOT STOP ANY OF YOUR OTHER PRESCRIPTION MEDICATIONS PRIOR TO SURGERY EXCEPT THE FOLLOWING Medications to discontinue per physician ___HOLD MELOXICAM (ALL NSAIDS) AND VITAMINS/SUPPLEMENTS 7 DAYS PRE-OP PER DR POLANCO Date to take last dose 01/05/25 Please no make-up, nail tamazight, hairspray, perfume, deodorant, or body powder the day of surgery.? No jewelry (including any body piercings) or valuables the day of surgery, leave them at home.? Please take a shower or bath the night before, or the morning of, surgery with an antibacterial soap.? Wear comfortable, loose fitting clothing.? - Jewelry must be removed prior to entering the operating room.? Rings and piercings that are not removed may be cut off. - The hospital will not accept responsibility for valuables.? - Please leave all valuables, including medications, at home the day of surgery. If you are going home after surgery, a licensed driver operator must drive you home.? - NO public transportation without another adult if you receive anesthesia. - We recommend that an adult stay with you for 24 hours following discharge. - We also recommend that you do not drive, make important decision, drink alcoholic beverages, or take any drugs that were not prescribed by your health care provider for at least 24 hours after your discharge time. Follow any additional instructions given to you from your surgeon. Telephone instructions given to ___PATIENT and asked if any additional questions and then verbalized understanding. Patient advised to call surgeon office or pre surgery nurse liaison [phone] if any additional questions.
--- NOTE | 2025-01-12 17:37 | PM.IMHP ---
H&P: HPI History of Present Illness Date/Time: 01/12/25 17:37 Chief Complaint: Severe left knee pain and stiffness due to advanced medial compartment osteoarthritis Narrative: Patient returns. I last saw her in November of 2023. She has advanced osteoarthritis of the left knee and we saw her for consideration for left knee replacement. She had 2 issues at that time. One was cervical spinal stenosis and she did see Dr. Garcia and after trial of non operative management she did undergo C3-4 anterior decompression fusion with peek allograft and anterior locking plate and bilateral foraminotomy. The surgery was in August of this year. She has a little bit of difficulty swallowing large pills that is improving slowly and occasionally feels some bugs crawling tingling sensation in the left trapezius area but if she feels she has done very well and she has a sense that her balance is improving since the cervical decompression. Her other problem when we saw her in November of 2023 was recurrent UTIs and she was on antibiotics at that time. She notes that since November of 2023 she has not had another urinary tract infection. These seem to have resolved. She would like to proceed with left knee replacement. Her knee hurts every day and limits her walking substantially. She does have chronic right lower back pain and she has elected to live with that symptom rather than consider surgical intervention at this time. She does note that she has had problems with swelling in the left leg for 2 months. In the morning it is not swelling, at least she has symmetric sized to her left and right legs but by the afternoon the left leg tends to be larger and the swelling involves the foot and ankle as well as the calf. She does have history of morbid obesity in the past and has residual obesity of her calves as result. I discussed with her that we should obtain a venous duplex ultrasound to rule out DVT since she does have a history of a pulmonary embolism 2019. Patient underwent gastric bypass surgery for weight loss in 1984. She lost approximately 50 lb following that and has stated her current weight since. In 2019 she developed a small-bowel obstruction and had to have surgery for that and this was complicated by a pulmonary embolism. That was the only time she has had a blood clot. Patient has history of right total hip arthroplasty in 2010 and left total hip arthroplasty in 2015 both performed by us. Patient has had years of cortisone injections in her left knee and had been seen for the a few years with periodic cortisone injections until the last 2 injections did not give very much relief and then she was referred to me for knee replacement last November. MRI in 2021 showed multilevel central canal stenosis is graded as mild. Patient had been taking Celebrex as well as Prilosec twice daily chronically. She is currently taking meloxicam 7.5 mg daily and continues on the Prilosec twice daily. She understands that she does have increased risk for GI bleeding complications taking meloxicam due to the fact that she has had gastric bypass in the past and hopefully the Prilosec will mitigate that risk sufficiently. Patient also takes Tylenol and tramadol on an as-needed basis. [facility] Past Medical History Medical History (Updated 12/17/24 @ 10:05 by Sameera Wright CMA) Hx of pulmonary embolus Right lung History of small bowel obstruction Depression Anxiety Anemia RLS (restless legs syndrome) Myelopathy Pulmonary embolism History of blood clots LL2019 Hypertension Cataracts, both eyes Gallbladder & bile duct stone with obstruction Surgical History Surgical History (Updated 12/17/24 @ 10:05 by Sameera Wright CMA) History of gastric surgery outlet History of cataract extraction with lens replacement History of cholecystectomy 2002 H/O left wrist surgery fx fixation 11/2019 History of left hip replacement -2015 History of right hip replacement 12/2010 S/P gastroplasty 1985 H/O abdominal hysterectomy 1981 History of tonsillectomy 1967 Family History Family History Sibling Carcinoma of colon Social History Social History (Updated 12/17/24 @ 09:20 by Yvette Storey CMA) Smoking packs per day: 1 Smoking cigarettes per day: 20.0 Years smoked: 1 Smoking pack-years: 1.00 Smoking status: Former smoker Tobacco type: cigarettes Smoking end date: 08/03/1965 Alcohol intake: current Alcohol use details: very rarely Substance use: never Current Housing: Decline to Answer Concerned About Future Housing: Decline to Answer Difficulty Paying Gas/Electric Bills: Decline to Answer Difficulty Paying for Meds: Decline to Answer Currently Unemployed: Decline to Answer Education: Decline to Answer Difficulty w/ Childcare or Family Care: Decline to Answer Living arrangements: with family Additional living arrangements comments: J[place] Spiritual care concerns: No Meds Home Medications and Allergies Home Medications ?Medication ?Instructions ?Recorded ?Confirmed ?Type bupropion HCl 150 mg 24 hr tablet, 150 mg PO QAM 11/01/20 12/23/24 History extended release amlodipine 2.5 mg tablet 2.5 mg PO DAILY 11/12/23 12/23/24 History escitalopram oxalate 10 mg tablet 10 mg PO DAILY 11/12/23 12/23/24 History levothyroxine 100 mcg tablet 100 mcg PO DAILY 11/12/23 12/23/24 History (Synthroid) omeprazole 20 mg capsule,delayed 20 mg PO BID 11/12/23 12/23/24 History release pramipexole 0.25 mg tablet 0.25 mg PO QHS 11/12/23 12/23/24 History pregabalin 75 mg capsule 75 mg PO HS 11/12/23 12/23/24 History acetaminophen 650 mg 1,300 mg PO Q8H PRN pain 08/02/24 12/23/24 History tablet,extended release (8 Hour Pain Reliever) ascorbic acid (vitamin C) 500 mg 500 mg PO DAILY 08/02/24 12/23/24 History capsule calcium carb-ergocalciferol (vit 1 tablet PO .PO 08/02/24 12/23/24 History D2) 600 mg calcium-200 unit tablet cholecalciferol (vitamin D3) 50 2,000 unit PO DAILY 08/02/24 12/23/24 History mcg (2,000 unit) capsule collagen,hydrolysate 500 mg-biotin 1 cap PO DAILY 08/02/24 12/23/24 History 800 mcg-ascorbic acid 50 mg capsule (Collagen 1500 Plus C) cranberry extract 250 mg tablet 2,500 mg PO BID 08/02/24 12/23/24 History cyanocobalamin (vitamin B-12) 2,000 mcg PO DAILY 08/02/24 12/23/24 History 1,000 mcg capsule cyclosporine 0.05 % eye drops in a 1 drp EACH EYE Q12H 08/02/24 12/23/24 History dropperette (Restasis) propranolol 60 mg tablet 30 mg PO Q12H 08/02/24 12/23/24 History pyridoxine (vitamin B6) 100 mg 100 mg PO DAILY 08/02/24 12/23/24 History tablet trazodone 100 mg tablet 150 mg PO HS 08/02/24 12/23/24 History turmeric 400 mg capsule 1,500 mg PO DAILY 08/02/24 12/23/24 History hydrochlorothiazide 12.5 mg tablet 12.5 mg PO DAILY 12/17/24 12/23/24 History meloxicam 7.5 mg tablet 7.5 mg PO DAILY 12/17/24 12/23/24 History omega-3 fatty acids 1,000 mg 2,000 mg PO DAILY 12/17/24 12/23/24 History capsule tramadol 50 mg tablet 50 mg PO Q6H PRN pain 12/17/24 12/23/24 History mupirocin 2 % topical ointment 1 applic topical BID #15 grams 12/27/24 Rx ([facility]) Allergies Allergy/AdvReac Type Severity Reaction Status Date / Time codeine AdvReac Intermediate gastric Verified 12/23/24 10:05 distress lisinopril AdvReac Intermediate Itching Verified 12/23/24 10:05 Sulfa (Sulfonamide AdvReac Intermediate Gastrointestinal Verified 12/23/24 10:05 Antibiotics) Upset Exam Narrative: Physical examination On examination today she has range of motion of her left knee from only 10? to 90?. She had moderately severe tenderness over the medial joint line and over the medial tibial metaphysis/pes anserine bursa region and moderate pain with patellofemoral grind. Trace effusion was palpable. She had normal varus valgus and AP stability. She had full range of motion of her left hip where she has a hip replacement and this caused no discomfort and she had negative Stinchfield maneuver. She had 5/5 quadriceps strength 2+ dorsalis pedis pulse palpable. She denied any numbness or tingling in the left lower extremity. She does note that periodically she will have some tingling around her left ankle. She had 5 5 muscle strength in all muscle groups of the left lower extremity. Patient has calves that are somewhat enlarged compared to normal due to obesity and I think there is trace edema pretibial bilaterally involving the level of the calf and ankle but no pedal edema. The appeared equal incised today. No calf tenderness. Again she notes increased left foot ankle and calf swelling at the end the day compared to the right. She walks with antalgic limp relative to her left knee. Her BMI is 34.2. She is alert and oriented pleasant female in no acute distress. Assessment and Plan Assessment and plan (1) Primary osteoarthritis of left knee: Code(s): M17.12 - Unilateral primary osteoarthritis, left knee Status: Acute Assessment and Plan: Assessment and plan 1. Patient has advanced osteoarthritis left knee. She has developed worsening limitation of range of motion. One year ago her left knee range of motion was 7-120 degrees and now it is 10-90 degrees. Her pain is significant every day despite meloxicam Tylenol and tramadol and cortisone shot stopped helping her last year. She would like to proceed with knee replacement left knee. I have explained to her that knee replacement is much harder to recover than her hip replacement. Most patients are able to do the normal activities of daily living by 6 weeks but continued to have problems with swelling stiffness and soreness with activity and full recovery takes between 12 and 18 months. She will have more difficulty with range of motion because of her significant range of motion limitation at this time and I explained to her that it will be extremely important that she focus on achieving full extension and full flexion starting with the day after surgery and focusing on this for the 1st 6 weeks. I discussed her that the surgery is scheduled as an outpatient but it is possible she may feel inadequate pain control or weakness the precludes discharge day after surgery and if so we would keep her for an additional period of time until she was safe to be discharged home. She has had increased risk for thromboembolic complications because of her history of pulmonary embolism in 2019 and I would plan to use Eliquis for 6 weeks after surgery for DVT prophylaxis. During that time we would avoid use of medications like meloxicam or Celebrex because of her history of gastric bypass outlet obstruction putting her at higher risk for a GI bleeding complications which could be catastrophic while on Eliquis for DVT prophylaxis. I would recommend that we obtain a venous duplex ultrasound to make sure she does not have a DVT in the left leg. I have given her the Ortho info handout on total knee replacement for her review. I have discussed risks of surgery with her in detail. I explained that there will be numbness lateral to the incision, that patients report difficulty kneeling after knee replacement, and some patients have anterior knee sensitivity after surgery chronically. She does have rather severe tenderness over the pes anserine bursa and this may persist following knee replacement. I have discussed risk of complications. Risk of infection was reviewed. Risk of blood clots in the leg and pulmonary embolism discussed. Risk of stiffness explained. Risk of ligament injury instability fracture component loosening and need for revision surgery discussed. Risk of bleeding and need for transfusion discussed. Risk of nerve injury was explained. Risk of medical complications such as heart attack stroke pulmonary embolism and was discussed. She would like to proceed the patient is possible and we will make arrangements. I would like her to see Dr. Clark her primary care physician before surgery.
[2025-01-13] VITALS (17 sets, daily range): BP systolic 106–152; BP diastolic 49–92; PULSE 55–79; RESP 10–20; TEMP 36–36.8; O2SAT 92–100
--- NOTE | ~2025-01-13 | XR_ITS ---
EXAMINATION: [id number], 01/13/2025 12:15 CDT HISTORY: POST OP LEFT TKA COMPARISON: No comparisons available. Findings: No acute fracture or malalignment. Prosthesis is intact Soft tissues unremarkable. Impression: No acute fracture or malalignment. Reviewed, dictated and finalized at location A. Impression: No acute fracture or malalignment.
--- OUTSIDE RECORDS SUMMARY | 2025-01-13 01:08 | XMS_ITS | Clinical Summary ---
Author Organization [facility] Address [address], [facility] [address] [place] [address] Phone Care Team Providers Care Lag Screwer Name Role Phone Pablo Vaughn MD Primary Care Provider [phone] Gerhard Colin MD Unavailable [phone] Allergies Active Allergy Reactions Criticality Noted Date [...] Lnp-s, Pf, 3 0 Mcg/0.3 Ml Dose ([employer]) 07/22/2020,07/01/2020 Influenza Vaccine 01/17/2020 Influenza Vaccine,unspecifie d [...] 1-dose 75+ series) 2020 Influenza Immunization (#1) 2025 092 08/2020, 01/17/2020, 01/17/2020, Additional history exists SARS-COV-2 Immunization ( - season) 2025 07/22/2020, 07/01/2020 Pneumococcal Immunization (50+ years) Completed [...] age to complete this topic Insurance MEDICARE [facility] Care Teams Lag Screwer Relationship Specialty [place] [id number] [address] PCP - General General Surgery 02/01/20 Gerhard Colin MD [address] [place] [phone] Consulting Physician Oncology 04/12/20
--- OUTSIDE RECORDS SUMMARY | 2025-01-13 01:08 | XMS_ITS | Encounter Summary ---
Author Organization [facility] Address [facility] [place] [address] Care Team Providers Care Ben Day Artist Name Role Phone Pablo Vaughn MD Primary Care Provider [phone] Stanley Mello MD Unavailable [phone] Gilbert Pablo MD Unavailable Zeyad Lozano MD Unavailable [phone] Pedro Barnhart MD Unavailable [phone] Eric Clark MD Primary Care Provider [phone] Encounter Details Date Type Department Care Team (Late st Contact Info) Description 06/16/[address] [facility] CONVERSION [address] [place], [place] [id number] , Generic Conversion, Social History Tobacco Use Types Packs/Day Years Used Date Smoking Tobacco: Never Assessed Comments Unknown Sex and Gender Information Value Date Recorded Sex Assigned at Female 03/25/2018 2:13 PM ELECTRICAL INSTRUMENTATION TECHNICIAN Legal Sex Female 10:53 PM CDT Gender Identity Female 03/25/2018 2:13 PM ELECTRICAL INSTRUMENTATION TECHNICIAN Sexual Orientation Straight 03/25/2018 2: 13 PM ELECTRICAL INSTRUMENTATION TECHNICIAN documented as of this encounter Plan of Treatment Not on file documented as of this encounter Visit Diagnoses Not on filedocumented in this encounter Additional Health Concerns Infection Onset Date Last Indicated Resolved Time COVID-19 Rule Out 11/29/2019 11/29/2019 11/29/2019 4:09 PM CDT COVID-19 Rule Out 12/21/2019 12/21/201912/2012/21/2019 11:45 AM CDT documented as of this encounter Care Teams Ben Day Artist Relationship Specialty Start Date End Date Pablo Vaughn MD PCP - General INTERNAL MEDICINE 10/03/17 07/18/21 [place] [address] [place] [address] PCP - General FAMILY PRACTICE 07/19/21 Stanley Mello MD [address] [address] [place] Program Technician CARDIOVASCULAR DISEASE 10/03/17 Gilbert Pablo MD [address] [facility] [place] [phone] [place] [address] Consulting Physician SURGERY 03/22/21 Zeyad Lozano MD [address] [address] Consulting Physician NEUROLOGY 03/22/21 Pedro Barnhart MD [address] [address] Consulting Physician ORTHOPAEDIC SURGERY 03/22/21 documented as of this encounter
--- OUTSIDE RECORDS SUMMARY | 2025-01-13 01:08 | XMS_ITS | Clinical Summary ---
Author Organization [facility] Address [address] [place] [address] Care Team Providers Care Surgical Territory Manager Name Role Phone Stanley Mello MD Unavailable [phone] Gilbert Pablo MD Unavailable Zeyad Lozano MD Unavailable [phone] UngPedro martinez MD Unavailable [phone] Eric Clark MD Primary Care Provider [phone] Allergies Active Allergy Reactions Criticality Noted Date [...] daily. Active Turmeric, Curcuma Longa, Powder Active omeprazole (PRILOSEC) 20 MG capsuleIndication s:Gastroesophagea [...] daily. 90 tablet 1 10/20/19 25 Active cholestyramine (QUESTRAN) 4 G packetIndications :Loose stools Take 1 packet (4 g total) by mouth daily. 60 each 1 10/20/19 25 Active traZODone (DESYREL) 100 MG tabletIndications [...] DAILY 90 tablet 3 11/05/19 25 Active hydroCHLOROthiazi de (MICROZIDE) 12.5 MG capsuleIndication s:Dependent edema TAKE 1 CAPSULE BY MOUTH EVERY DAY IN THE MORNING 30 capsule 1 12/14/19 25 Active amLODIPine (NORVASC) 2.5 MG tabletIndications :Primary hypertension TAKE 1 TABLET BY MOUTH EVERY DAY 90 tablet 12/16/19 25 Active levothyroxine (SYNTHROID) 100 MCG tabletIndications :Acquired hypothyroidism TAKE 1 TABLET BY MOUTH IN THE MORNING WITH WATER ON EMPTY STOMACH 1HOUR BEFORE BREAKFAST OR 2 HOURS AFTER DINNER WITH NO OTHER MEDS 90 tablet 3 01/05/20 25 Active zolpidem (AMBIEN) 5 MG tabletIndications :Primary insomnia Take 1 tablet (5 mg total) by mouth nightly as needed for Sleep. 14 tablet 01/09/20 25 Active meloxicam (MOBIC) 7.5 MG tabletIndications :Arthralgia of right knee Take 1 tablet (7.5 mg total) by mouth daily. 30 tablet 1 01/09/20 25 Active pregabalin (LYRICA) 75 MG capsuleIndication s:Lumbar radiculopathy Take 1 capsule (75 mg total) by mouth every evening. 90 capsule 01/09/20 25 Active zolpidem (AMBIEN) 5 MG tabletIndications :Insomnia Take 1 tablet (5 mg total) by mouth nightly as needed for Sleep. 30 tablet 01/09/20 25 Active escitalopram (LEXAPRO) 20 MG tabletIndications :Moderate episode of recurrent major depressive disorder (CMS/HCC) Take 1 tablet (20 mg total) by mouth daily. 90 tablet 1 01/11/20 25 Active escitalopram (LEXAPRO) 20 MG tabletIndications :Moderate episode of recurrent major depressive disorder (CMS/HCC) take 1 tablet by mouth daily 90 tablet 3 08/05/19 24 2024 Discontinued(R eorder) amLODIPine (NORVASC) 2.5 MG tabletIndications :Primary hypertension Take 1 tablet (2.5 mg total) by mouth daily. 90 tablet 1 06/14/19 25 2024 Discontinued pregabalin (LYRICA) 75 MG capsuleIndication s:Lumbar radiculopathy Take 1 capsule (75 mg total) by mouth every evening. 90 capsule 10/20/19 25 2024 Discontinued(R eorder) levothyroxine (SYNTHROID) 100 MCG tabletIndications :Acquired hypothyroidism TAKE 1 TABLET BY MOUTH IN THE MORNING WITH WATER ON EMPTY STOMACH 1 HOUR BEFORE BREAKFAST OR 2 HOURS AFTER DINNER WITH NO OTHER MEDS 90 tablet 1 10/21/19 25 2024 Discontinued meloxicam (MOBIC) 7.5 MG tabletIndications :Arthralgia of right knee TAKE 1 TABLET BY MOUTH EVERY DAY 30 tablet 1 11/18/19 25 2024 Discontinued(R eorder) Hospital, Clinic, or Other Facility Administered Medication Ordered Dose Route Frequency Start Date End Date Status phenazopyridine (PYRIDIUM) tablet 100 mgIndications:UTI symptoms 100 mg OR 3 times daily with meals 09/19/2023 Active Active Problems Problem Noted Date Diagnosed Date Cervical spinal stenosis 01/06/2025 Degenerative lumbar spinal stenosis 01/06/2025 Facial droop 01/06/2025 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 Assessment & Plan (04/22/2018 9:21 AM METAL DEALER): Check routine labs to reassess today. Essential tremor 02/13/2017 Overview (04/15/2018): Transitioned From: Resting tremor Assessment & Plan (11/15/2018 5:25 PM CDT): Stable, continues on primidone as prescribed by Dr. Ta, with regular follow- up with him. Improved control of symptoms. No treatment change. Assessment & Plan (04/22/2018 9:19 AM METAL DEALER): Patient reports less effectiveness with her primidone. She is scheduled to see her neurologist in the next 3 months and wishes to wait to discuss this with him. It is not causing any side effects or intolerances however. Anemia, mild 12/07/2015 Assessment & Plan (11/15/2018 5:29 PM CDT): Check CBC today. Assessment & Plan (04/22/2018 9:21 AM METAL DEALER): Obtain CBC and reevaluate today. Medication management 12/06/2015 Overview (04/15/2018): Transitioned From: group home use of drug Assessment & Plan (11/15/2018 5:29 PM CDT): Routine lab work to be drawn today. Assessment & Plan (04/22/2018 9:24 AM METAL DEALER): Obtain routine lab work for reassessment of [...] draw. Assessment & Plan (04/22/2018 9:20 AM METAL DEALER): Stable on current medication and regimen. However, her insurance is going to require her to change dosing with her next renewal. We will plan on changing her to 40 mg once daily when that occurs and continue to monitor for any breakthrough symptoms. Vitamin D deficiency 02/08/2015 Assessment & Plan (04/22/2018 9:20 AM METAL DEALER): Check vitamin D level for chronic medication use today. Moderate episode of recurrent major depressive d isorder 06/15/2014 Assessment & Plan (11/15/2018 5:29 PM CDT): Stable on current dosing of trazodone nightly. Continue to monitor. Patient reports improved stress related to family. Assessment & Plan (04/22/2018 9:23 AM METAL DEALER): Stable at present on current medications. No change in therapy. Pseudophakia of both eyes 05/05/2014 Pernicious anemia 04/02/2013 Assessment & Plan (04/22/2018 9:22 AM METAL DEALER): Continues on vitamin B12 supplements, check levels today. Arthritis of multiple sites 06/24/2012 Overview (04/15/2018): Annotation - [id number]: right hip; left knee; Ran Hopson MD Assessment & Plan (11/15/2018 5:27 PM CDT): Reasonably controlled with intermittent use of ibuprofen as well as tramadol. Review of [place] Prescription Monitoring Program website indicates no misuse or abuse. Continue tramadol dosing. Assessment & Plan (04/22/2018 9:20 AM METAL DEALER): Stable on current regimen, with intermittent use [...] plan. Assessment & Plan (04/22/2018 9:21 AM METAL DEALER): Patient continues on current regimen. New insurance pharmacy management is going to require a change to generic levothyroxine. We will do that with her next renewal. Encouraged to monitor for any symptoms or other side effects with the change of medication. Check TSH today. Resolved Problems Problem Noted Date Diagnosed Date Resolved Date Hip pain 07/27/2020 07/27/2020 SBO (small bowel obstruction ) ([facility]) 12/20/2019 01/28/2020 Gastric outlet obstruction ([facility]) 12/20/2019 01/28/2020 Class 1 obesity due to exces s calories with serious comorbidity and body mass index (BMI) of 30.0 to 30.9 in adult 11/17/2019 01/15/2022 Acute non-recurrent sinusiti s, unspecified location 03/25/2018 04/15/2018 Dysuria 01/16/2018 04/22/2018 Superficial thrombophlebitis 07/11/2017 04/22/2018 Wears glasses 03/03/2017 01/14/2020 Sinus bradycardia 07/27/2020 Encounters Date Type Department Care Team Description 01/10/2025 Telephone [facility] [address] [address] Eric Clark MD Medication Request 01/07/2025 Telephone [facility] [address] [address] Eric Clark MD Refill Request 01/06/2025 3:00 PM CDT Office Visit [facility] [address] [address] Eric Clark MD Follow Up; Surgical Clearance (Pt states she is having surgery 01/13/2025 ) 01/06/2025 Travel 12/23/2024 Scan HEALTH INFO SRVCS Scanned, [facility] Lab (SCAN) 12/22/2024 Telephone [facility] [address] [address] Eric Clark MD Medication 12/21/2024 Scan MG HEALTH INFO SRVCS Scanned, [facility] Vascular Lab Study (SCAN) 12/17/2024 Scan MG HEALTH INFO SRVCS Scanned, [facility] 10/26/2024 Telephone [facility] [id number] [place] [address] Eric Clark MD Edema 10/19/2024 9:40 AM CDT Office Visit [facility] [id number] [place] [address] Eric Clark MD Swelling (Pt c/o swelling in both feet and ankle /Pt state she noticed it about a week ago ) 10/19/2024 Travel from Last 3 Months Immunizations Immunization [...] 02/08/2017 Pneumococcal (Prevnar 13) 04/22/2018 Zoster (Zostavax) 77575 Unt/0.65Ml 04/24/2012 Family History Medical History Relation [...] Sex Assigned at Female 03/25/2018 2:13 PM METAL DEALER Legal Sex Female 10:53 PM CDT Gender Identity Female 03/25/2018 2:13 PM METAL DEALER Sexual Orientation Straight 03/25/2018 2: 13 PM METAL DEALER Occupation Industry Job Start Date Job End Date Not on file Not on file Not on file Not on file Last Filed Vital Signs Vital Sign Reading Time Taken Comments Blood Pressure 154/71 01/06/2025 3:11 PM CDT Pulse 63 01/06/2025 3:11 PM CDT Temperature 36.6 C (97.8 F) 01/06/2025 3:11 PM CDT Respiratory Rate 16 01/06/2025 3:11 PM CDT Oxygen Saturation 98% 01/06/2025 3:11 PM CDT Inhaled Oxygen Concentration - - Weight 78.9 kg (174 lb) 01/06/2025 3:11 PM CDT Height 154.9 cm (5' 1) 01/06/2025 3:11 PM CDT Body Mass Index 32.88 01/06/2025 3:11 PM CDT Plan of Treatment Health Maintenance Due Date Last Done Comments Annual Medicare Wellness Visit 2010 Zoster Vaccines (2 of 3) 06/19/2012 04/24/2012 RSV Immunization or 60+ Years (1 - 1-dose 75+ series) 2020 COVID-19 Vaccine ( - season) 2025 02/04/2023, 01/17/2022, 02/21/2021, Additional history exists DTaP, Tdap and Td Vaccines (1 - Tdap) 11/02/2028 Postponed from 1964 (Per Provider Recommendation) Colorectal Cancer Screening Colonoscopy (10 Years) Discontinued 07/15/2012 Pneumococcal Vaccine: 50+ Years Completed 04/22/2018, 02/08/2017 Hepatitis C Completed 05/22/2022 Dexa Scan (General) Completed 07/12/2022 PHQ-2 (Physician [place]) Completed 10/19/2024 Meningococcal B Vaccine Aged Out No l onger eligible based on patient's age to complete this topic Meningococcal Vaccine Aged Out No sea lita eligible based on patient's age to complete this topic RSV Immunizations Under 20 Months Aged Out No longer eligible based on patient's age to complete this topic Medical Devices Implanted Type Area Laborer Wood Preserving Plant Device Identifier Shelf Expiration Date Model / Serial / Lot Hip Components Hip Components 3.5mm Locking Hexalobe Screws Implanted:Qty: 1 on 11/30/2019 by Pedro Barnhart MD at [facility] Left: Wrist / [id number] / Proximal Vdr Narrow Plate Left Implanted:Qty: 1 on 11/30/2019 by Pedro Barnhart MD at [facility] Left: Wrist / [id number] / 3.5mm Non Locking Hexalobe Screw Implanted:Qty: 1 on 11/30/2019 by Pedro Barnhart MD at [facility] Left: Wrist / / 8 2.3mm Fully Threaded Locking Screws (Gold) Implanted:Qty: 2 on 11/30/2019 by Pedro Barnhart MD at [facility] Left: Wrist / [id number] / 2.3mm Smooth Locking Pegs (Gold) Implanted:Qty: 1 on 11/30/2019 by Pedro Barnhart MD at [facility] Left: Wrist / / [id number] Explanted Type Area Laborer Wood Preserving Plant Device Identifier Shelf Expiration Date Model / Serial / Lot 2.0 Quick Release Drill Bit Explanted:Qty: 1 on 11/30/2019 by Pedro Barnhart MD at [facility] Left: Wrist / -[id number] / Guide Wire Explanted:Qty: 3 on 11/30/2019 by Pedro Barnhart MD at [facility] Left: Wrist / [id number] / 2.8 Quick Release Drill Bit Explanted:Qty: 1 on 11/30/2019 by Pedro Barnhart MD at [facility] Left: Wrist / [id number] / 2.8 Quick Release Drill Bit Explanted:Qty: 1 on 11/30/2019 at [facility] Left: Wrist / [id number] / Procedures Procedure Name Priority Date/Time Associated Diagnosis Comments OUTSIDE LAB (SCAN ORDER) 12/23/2024 OUTSIDE LAB (SCAN ORDER) 12/23/2024 OUTSIDE LAB (SCAN ORDER) 12/23/2024 OUTSIDE LAB (SCAN ORDER) 12/23/2024 VASCULAR LAB GENERIC (SCAN ORDER) 12/21/2024 BONE DENSITY/DEXA Routine 07/12/2022 11: 10 AM METAL DEALER Post-menopausal Osteopenia Osteoporosis HEPATITIS C ANTIBODY Routine 05/22/2022 9:53 AM METAL DEALER Lupus Sjogren syndrome with central nervous system involvement Systemic lupus erythematosus Peripheral nerve disorder Fatigue Senile arthritis Hypomagnesemia Impaired glucose tolerance test Vitamin D deficiency Vitamin B12 deficiency Encounter for therapeutic drug monitoring COLONOSCOPY Routine 07/15/2012 12:00 AM CDT from Last 3 Months or Most Recently Relevant to Health Maintenance Results * OUTSIDE LAB (SCAN ORDER) (12/23/2024) Only the most recent of4 resultswithin the time period is included. 12/23/2024 [facility] Scanned SCANNING Final Resu lt * VASCULAR LAB GENERIC (SCAN ORDER) (12/21/2024) 12/21/2024 [facility] [facility] Scanned SCANNING Final Resu lt * BONE DENSITY/DEXA (07/12/2022 11:10 AM METAL DEALER) Anatomical Region Laterality Modality Bone Bone Density 07/12/2022 11:1 2 AM METAL DEALER Narrative 07/12/2022 11:14 AM METAL DEALER IMAGING STUDIES: BONE DENSITY/DEXA DATE: 07/12/2022 10:59 [...] By: Mayra Joseph, 07/12/2022 11:12 AM Elan Ewing MD DEXA Final Result * HEPATITIS C ANTIBODY (05/22/2022 9:53 AM METAL DEALER) HEPATITIS C AB NON-REACTI VE NON-REACTI VE 05/22/2022 2:49 PM METAL DEALER [facility] 05/22/2022 9:53 AM METAL DEALER us Elan Ewing MD LABORATORY Final Result [facility] [id number], * Colonoscopy (07/15/2012 12:00 AM CDT) 07/15/2012 07/15/2012 Narrative [facility] TO EPIC CONVERSION - 07/15/2012 12:00 AM CDT Documented hx of procedure Procedure Note Yelena Plaza MD - 03/08/2018 Documented hx of procedure us Generic Conversion Md [facility] PROCEDURE ORDERABLES Final Result [facility] TO EPIC CONVERSION from Last 3 Months or Most Recently Relevant to Health Maintenance Insurance MEDICARE ALLIED BENEFITS MEDICARE [facility] Advance Directives * No Code Status (Latest Code Status on File) Date Activated Date Inactivated Comments 07/02/2022 9:08 AM 03/17/2023 9:17 AM all routine medication should be sent to [facility] please * Full Code Date Activated Date Inactivated Comments 12/21/2019 8:23 AM 12/25/2019 1:18 PM * Full Code Date Activated Date Inactivated Comments 12/14/2019 10:08 PM 12/20/2019 6:39 PM Care Teams Surgical Territory Manager Relationship Specialty [place] [address] [place] [address] PCP - General FAMILY PRACTICE 07/19/21 Stanley Mello MD [facility]. [facility] [address] [place] [address] [place] No Experience CARDIOVASCULAR DISEASE 10/03/17 Gilbert Pablo MD [address] [facility] [phone] [place] [address] Consulting Physician SURGERY 03/22/21 Zeyad Lozano MD [address] [address] Consulting Physician NEUROLOGY 03/22/21 Pedro Barnhart MD 30 [facility] 1 [place] [address] Consulting Physician ORTHOPAEDIC SURGERY 03/22/21
--- OUTSIDE RECORDS SUMMARY | 2025-01-13 01:08 | XMS_ITS | Encounter Summary ---
Author Organization [facility] Address [address] [place] [address] Care Team Providers Care District Recruiter Name Role Phone Pablo Vaughn MD Primary Care Provider [phone] Stanley Mello MD Unavailable [phone] Gilbert Pablo MD Unavailable Zeyad Lozano MD Unavailable [phone] Pedro Barnhart MD Unavailable [phone] Eric Clark MD Primary Care Provider [phone] Encounter Details Date Type Department Care Team (Late st Contact Info) Description 01/06/2018 [facility] at [address] [address] Fede Turcios MA Social History Tobacco Use Types Packs/Day Years Used Date Smoking Tobacco: Former Alcohol Use Standard Drinks/Week Comments No 0 (1 standard drink = 0.6 oz pur e alcohol) Comments Unknown Sex and Gender Information Value Date Recorded Sex Assigned at Female 03/25/2018 2:13 PM FINANCIAL ECONOMIST Legal Sex Female 10:53 PM CDT Gender Identity Female 03/25/2018 2:13 PM FINANCIAL ECONOMIST Sexual Orientation Straight 03/25/2018 2: 13 PM FINANCIAL ECONOMIST Occupation Industry Job Start Date Job End [...] documented as of this encounter Care Teams District Recruiter Relationship Specialty Start Date End Date Pablo Vaughn MD PCP - General INTERNAL MEDICINE 10/03/17 07/18/21 [place] [address] [place] [address] PCP - General FAMILY PRACTICE 07/19/21 tSanley Mello MD [facility]. [address] [address] [place] Financing Analyst CARDIOVASCULAR DISEASE 10/03/17 Gilbert Pablo MD [address] [facility] [phone] [place] [address] Consulting Physician SURGERY 03/22/21 Zeyad Lozano MD [address] [address] Consulting Physician NEUROLOGY 03/22/21 Pedro Barnhart MD [address] [place] [address] Consulting Physician ORTHOPAEDIC SURGERY 03/22/21 documented as of this encounter
--- OUTSIDE RECORDS SUMMARY | 2025-01-13 01:09 | XMS_ITS | Clinical Summary ---
Author Organization [facility] Address [address] [place] [address] Care Team Providers Care Lead Investigator Name Role Phone Pablo Vaughn MD Primary [...] on file Legal Sex Female 1:10 AM SERVICE DELIVERY MANAGER Gender Identity Not on file Sexual [...] of Treatment Not on file Insurance MEDICARE [facility] Powered by [place] MEDICARE Care Teams Lead Investigator Relationship Specialty Start Date End Date Pablo Vaughn MD PCP - General 08/09/14
--- OUTSIDE RECORDS SUMMARY | 2025-01-13 01:09 | XMS_ITS | Encounter Summary ---
Author Organization [facility] Address [facility] [place] [address] Care Team Providers Care Enterprise Systems Manager Name Role Phone Pablo Vaughn MD Primary Care Provider [phone] Stanley Mello MD Unavailable [phone] Gilbert Pablo MD Unavailable Zeyad Lozano MD Unavailable [phone] Pedro Barnhart MD Unavailable [phone] Eric Clark MD Primary Care Provider Encounter Details Date Type Department Care Team (Late st Contact Info) Description 11/29/2019 Hospital Orders Only [facility] [address] [place], [place] [id number] Pedro Barnhart MD [address] [address] Social History Tobacco Use Types Packs/Day Years Used Date Smoking Tobacco: Former Cigarettes Q uit: 1980 Smokeless Tobacco: Never Alcohol Use Standard Drinks/Week Comments Yes 0 (1 standard drink = 0.6 oz pur e alcohol) little PHQ-2 Answer Date Recorded PHQ-2 Score 2 11/17/2019 Comments No Sex and Gender Information Value Date Recorded Sex Assigned at Female 03/25/2018 2:13 PM FELT COVERER Legal Sex Female 10:53 PM CDT Gender Identity Female 03/25/2018 2:13 PM FELT COVERER Sexual Orientation Straight 03/25/2018 2: 13 PM FELT COVERER Occupation Industry Job Start Date Job End [...] documented as of this encounter Care Teams Enterprise Systems Manager Relationship Specialty Start Date End Date Pablo Vaughn MD PCP - General INTERNAL MEDICINE 10/03/17 07/18/21 [place] [address] [place] [address] PCP - General FAMILY PRACTICE 07/19/21 Stanley Mello MD [facility]. [address] [address] [employer] Water[employer] Supervisor CARDIOVASCULAR DISEASE 10/03/17 Gilbert Pablo MD [address] [facility] [phone] [place] [address] Consulting Physician SURGERY 03/22/21 Zeyad Lozano MD [address] [address] Consulting Physician NEUROLOGY 03/22/21 Pedro Barnhart MD [address] [place] [address] Consulting Physician ORTHOPAEDIC SURGERY 03/22/21 documented as of this encounter
--- OUTSIDE RECORDS SUMMARY | 2025-01-13 01:09 | XMS_ITS | Encounter Summary ---
Author Organization [facility] Address [facility] [place] [address] Care Team Providers Care Quote Clerk Name Role Phone Pablo Vaughn MD Primary Care Provider + [phone] Stanley Mello MD Unavailable [phone] Gilbert Pabol MD Unavailable Zeyad Lozano MD Unavailable [phone] Pedro Barnhart MD Unavailable [phone] Eric Clark MD Primary Care Provider [phone] Encounter Details Date Type Department Care Team (Late st Contact Info) Description 11/29/2019 Prep for Procedure [facility] [address] [place], [place] [id number] Pedro Barnhart MD [address] [address] Social History Tobacco Use Types Packs/Day Years Used Date Smoking Tobacco: Former Cigarettes Q uit: 1980 Smokeless Tobacco: Never Alcohol Use Standard Drinks/Week Comments Yes 0 (1 standard drink = 0.6 oz pur e alcohol) little PHQ-2 Answer Date Recorded PHQ-2 Score 2 11/17/2019 Comments No Sex and Gender Information Value Date Recorded Sex Assigned at Female 03/25/2018 2:13 PM 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 Legal Sex Female 10:53 PM CDT Gender Identity Female 03/25/2018 2:13 PM 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 Sexual Orientation Straight 03/25/2018 2: 13 PM 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 Occupation Industry Job Start Date Job End [...] PM CDT) 11/29/2019 1:51 PM CDT Narrative [facility] ([facility] RAD - 11/29/2019 4:26 PM CDT [facility] Test Date: 2019-11-29 Pat Name: LEAH TAPIA Department: Room: Gender: Female Talk Show Host: : 1945 Requested By: PEDRO BARNHART Order Number: [id number] Reading MD: Mars Mcintosh Measurements Intervals [place] Rate: 60 P: 26 MO: 152 QRS: 1 QRSD: 84 T: 23 QT: 383 QTc: 386 Interpretive Statements SINUS RHYTHM LOW QRS VOLTAGE IN PRECORDIAL LEADS [QRS DEFLECTION < 1.0 mV IN CHEST LEADS] No previous ECG available for comparison Procedure Note Mars Mcintosh MD - 11/29/2019 [facility] Test Date: 2019-11-29 Pat Name: LEAH TAPIA Department: Room: Gender: Female Talk Show Host: : 1945 Requested By: PEDRO BARNHART Order Number: [id number] [place] [address]: Mars Mcintosh Measurements Intervals [place] Rate: 60 P: 26 MO: 152 QRS: 1 QRSD: 84 T: 23 QT: 383 QTc: 386 Interpretive Statements SINUS RHYTHM LOW QRS VOLTAGE IN PRECORDIAL LEADS [QRS DEFLECTION < 1.0 mV IN CHESTLEADS] No previous ECG available for comparison us Pedro Barnhart MD ECG ORDERABLES Final Result [facility] ([facility]) RAD * RESPIRATORY PCR PANEL 2 (11/29/2019 11:34 AM CDT) Pathologist [facility] ADENOVIRUS PCR (RESP) NOT DETECTED NOT DETECTED 11/29/2019 4:09 PM CDT [facility] CORONAVIRUS 229E PCR (RESP) NOT DETECTED NOT DETECTED 11/29/2019 4:09 PM CDT [facility] CORONAVIRUS HKU1 PCR (RESP) NOT DETECTED NOT DETECTED 11/29/2019 4:09 PM CDT [facility] CORONAVIRUS NL63 PCR (RESP) NOT DETECTED NOT DETECTED 11/29/2019 4:09 PM CDT [facility] CORONAVIRUS OC43 PCR (RESP) NOT DETECTED NOT DETECTED 11/29/2019 4:09 PM CDT [facility] METAPNEUMOVIRUS PCR (RESP) NOT DETECTED NOT DETECTED 11/29/2019 4:09 PM CDT [facility] RHINOVIRUS/ENTEROV IRUS PCR (RESP) NOT DETECTED NOT DETECTED 11/29/2019 4:09 PM CDT [facility] INFLUENZA A PCR (RESP) NOT DETECTED NOT DETECTED 11/29/2019 4:09 PM CDT [facility] INFLUENZA B PCR (RESP) NOT DETECTED NOT DETECTED 11/29/2019 4:09 PM CDT [facility] PARAINFLUENZA 1 PCR (RESP) NOT DETECTED NOT DETECTED 11/29/2019 4:09 PM CDT [facility] PARAINFLUENZA 2 PCR (RESP) NOT DETECTED NOT DETECTED 11/29/2019 4:09 PM CDT [facility] PARAINFLUENZA 3 PCR (RESP) NOT DETECTED NOT DETECTED 11/29/2019 4:09 PM CDT [facility] PARAINFLUENZA 4 PCR (RESP) NOT DETECTED NOT DETECTED 11/29/2019 4:09 PM CDT [facility] RSV PCR (RESP) NOT DETECTED NOT DETECTED 11/29/2019 4:09 PM CDT [facility] B PARAPERTUSIS PCR (RESP) NOT DETECTED NOT DETECTED 11/29/2019 4:09 PM CDT [facility] BORDETELLA PERTUSSIS PCR (RESP) NOT DETECTED NOT DETECTED 11/29/2019 4:09 PM CDT [facility] CHLAMYDOPHILA PNEUMONIAE PCR (RESP) NOT DETECTED NOT DETECTED 11/29/2019 4:09 PM CDT [facility] MYCOPLASMA PNEUMONIAE PCR (RESP) NOT DETECTED NOT DETECTED 11/29/2019 4:09 PM CDT [facility] CORONAVIRUS SARS COV 2 PCR (RESP) NOT DETECTED NOT DETECTED 11/29/2019 4:09 PM CDT [facility] Comment: THE SARS-CoV-2 TEST HAS BEEN AUTHORIZED BY THE FDA UNDER AN EUA FOR USE BY AUTHORIZED LABORATORIES. NASOPHARYNGEAL STRUCTURE / Unknown 11/29/2019 11:34 AM CDT us Pedro Barnhart MD MICROBIOLOGY - GENERAL ORDERA BLES Final Result [facility] [address] [place] [address], [place] [phone] documented in this encounter Visit Diagnoses Diagnosis Preoperative testing- Primary Preoperative examination, unspecified Preoperative clearance Preoperative examination, unspecified Preoperative clearance Preoperative examination, unspecified documented in this encounter Additional Health Concerns Infection Onset Date Last Indicated Resolved Time COVID-19 Rule Out 11/29/2019 11/29/2019 11/29/2019 4:09 PM CDT COVID-19 Rule Out 12/21/2019 12/21/2019 12/21/2019 11:45 AM CDT documented as of this encounter Care Teams Quote Clerk Relationship Specialty Start Date End Date Pablo Vaughn MD PCP - General INTERNAL MEDICINE 10/03/17 07/18/21 [place] [address] [address] [place] [address] PCP - General FAMILY PRACTICE 07/19/21 Stanley Mello MD [address] [address] [place] Manager Global CARDIOVASCULAR DISEASE 10/03/17 Gilbert Pablo MD [address] [facility] [id number] [place] [address] Consulting Physician SURGERY 03/22/21 Zeyad Lozano MD [address] [address] Consulting Physician NEUROLOGY 03/22/21 Pedro Barnhart MD [address] [address] Consulting Physician ORTHOPAEDIC SURGERY 03/22/21 documented as of this encounter
[2025-01-13] MEDS: LACTATED RINGERS 1,000 ML 30 ML IV CONT ×2 (06:44→11:58)
[2025-01-13] MEDS: VANCOMYCIN 1,250 MG/NS 250 ML 1,250 MG/250 ML BAG 166.67 MG IVPB (06:50)
[2025-01-13] MEDS: TRANEXAMIC ACID 1,000MG/ISO100 1,000 MG/100 ML BAG 200 MG IVPB (06:50)
[2025-01-13] MEDS: ACETAMINOPHEN 500 MG TABLET 1000 MG PO (06:50)
--- NOTE | 2025-01-13 07:18 | WPDHPUPDATE1 ---
History and Physical Update Update Date/Time: 01/13/25 07:18 History and Physical has been reviewed, including an updated exam of the patient. There are NO changes in the patient's condition. Risks, benefits, and alternatives have been discussed and questions answered. Patient agrees to proceed with procedure.
--- NOTE | 2025-01-13 07:25 | WPDANESEPPF ---
Anes - Initial Pre Proc Eval Procedure: Operation Date: 01/13/25 07:30 Proposed Procedures p Left Total Knee Arthroplasty - Ran Hopson MD Date/Time: 01/13/25 07:25 Surgeon: Ran Hopson MD Pre Op Diagnosis: lt knee o.a. Patient Data Age: 79 Gender: F Height: 1.5 m Weight: 78.4 kg Last Vital Signs Temp 98.3 F 12/23/24 10:17 Pulse 55 L 12/23/24 10:17 Resp 16 12/23/24 10:17 BP 149/63 H 12/23/24 10:17 Pulse Ox 100 12/23/24 10:17 O2 Del Method Room Air 12/23/24 10:17 Allergies Allergy/AdvReac Type Severity Reaction Status Date / Time codeine AdvReac Intermediate gastric Verified 12/23/24 10:05 distress lisinopril AdvReac Intermediate Itching Verified 12/23/24 10:05 Sulfa (Sulfonamide AdvReac Intermediate Gastrointestinal Verified 12/23/24 10:05 Antibiotics) Upset Home Medications ?Medication ?Instructions ?Recorded ?Confirmed ?Type bupropion HCl 150 mg 24 hr tablet, 150 mg PO QAM 11/01/20 12/23/24 History extended release amlodipine 2.5 mg tablet 2.5 mg PO DAILY 11/12/23 12/23/24 History escitalopram oxalate 10 mg tablet 10 mg PO DAILY 11/12/23 12/23/24 History levothyroxine 100 mcg tablet 100 mcg PO DAILY 11/12/23 12/23/24 History (Synthroid) omeprazole 20 mg capsule,delayed 20 mg PO BID 11/12/23 12/23/24 History release pramipexole 0.25 mg tablet 0.25 mg PO QHS 11/12/23 12/23/24 History pregabalin 75 mg capsule 75 mg PO HS 11/12/23 12/23/24 History acetaminophen 650 mg 1,300 mg PO Q8H PRN pain 08/02/24 12/23/24 History tablet,extended release (8 Hour Pain Reliever) ascorbic acid (vitamin C) 500 mg 500 mg PO DAILY 08/02/24 12/23/24 History capsule calcium carb-ergocalciferol (vit 1 tablet PO .PO 08/02/24 12/23/24 History D2) 600 mg calcium-200 unit tablet cholecalciferol (vitamin D3) 50 2,000 unit PO DAILY 08/02/24 12/23/24 History mcg (2,000 unit) capsule collagen,hydrolysate 500 mg-biotin 1 cap PO DAILY 08/02/24 12/23/24 History 800 mcg-ascorbic acid 50 mg capsule (Collagen 1500 Plus C) cranberry extract 250 mg tablet 2,500 mg PO BID 08/02/24 12/23/24 History cyanocobalamin (vitamin B-12) 2,000 mcg PO DAILY 08/02/24 12/23/24 History 1,000 mcg capsule cyclosporine 0.05 % eye drops in a 1 drp EACH EYE Q12H 08/02/24 12/23/24 History dropperette (Restasis) propranolol 60 mg tablet 30 mg PO Q12H 08/02/24 12/23/24 History pyridoxine (vitamin B6) 100 mg 100 mg PO DAILY 08/02/24 12/23/24 History tablet trazodone 100 mg tablet 150 mg PO HS 08/02/24 12/23/24 History turmeric 400 mg capsule 1,500 mg PO DAILY 08/02/24 12/23/24 History hydrochlorothiazide 12.5 mg tablet 12.5 mg PO DAILY 12/17/24 12/23/24 History meloxicam 7.5 mg tablet 7.5 mg PO DAILY 12/17/24 12/23/24 History omega-3 fatty acids 1,000 mg 2,000 mg PO DAILY 12/17/24 12/23/24 History capsule tramadol 50 mg tablet 50 mg PO Q6H PRN pain 12/17/24 12/23/24 History mupirocin 2 % topical ointment 1 applic topical BID #15 grams 12/27/24 Rx (Centany) Patient hx anesthesia problems: none Family hx anesthesia problems: none Results Review: All pre-operative results and documents have been reviewed as part of the pre-operative evaluation. [facility] Past Medical History Medical History (Updated 12/17/24 @ 10:05 by Sameera Wright [facility]) Hx of pulmonary embolus Right lung History of small bowel obstruction Depression Anxiety Anemia RLS (restless legs syndrome) Myelopathy Pulmonary embolism History of blood clots 2019 Hypertension Cataracts, both eyes Gallbladder & bile duct stone with obstruction Surgical History Surgical History (Updated 12/17/24 @ 10:05 by Sameera Wright [facility]) History of gastric surgery outlet History of cataract extraction with lens replacement -2014 History of cholecystectomy 2002 H/O left wrist surgery fx fixation 11/2019 History of left hip replacement -2015 History of right hip replacement 12/2010 S/P gastroplasty 1985 H/O abdominal hysterectomy 1981 History of tonsillectomy 1967 Family History Family History (Reviewed 12/17/24 @ 08:32 by Sameera Wright [facility]) Sibling Carcinoma of colon Social History Social History (Updated 12/17/24 @ 09:20 by Yvette Storey [facility]) Smoking packs per day: 1 Smoking cigarettes per day: 20.0 Years smoked: 1 Smoking pack-years: 1.00 Smoking status: Former smoker Tobacco type: cigarettes Smoking end date: 08/03/1965 Alcohol intake: current Alcohol use details: very rarely Substance use: never Current Housing: Decline to Answer Concerned About Future Housing: Decline to Answer Difficulty Paying Gas/Electric Bills: Decline to Answer Difficulty Paying for Meds: Decline to Answer Currently Unemployed: Decline to Answer Education: Decline to Answer Difficulty w/ Childcare or Family Care: Decline to Answer Living arrangements: with family Additional living arrangements comments: HUSB Spiritual care concerns: No Anes - Eval Final PreProcedure Day of Procedure 01/13/25 07:25 Patient weight: normal Heart: regular rate and rhythm Lungs: clear to auscultation Airway: Mallampati scale class III Neurological: alert and oriented Last oral intake: >/= 8 hours ASA classification: III Emergent: no Anesthetic plan: proceed Anesthesia type and monitoring: general ETT and standard monitoring Results Review: All pre-operative results and documents have been reviewed as part of the pre-operative evaluation. Informed Consent: The patient's anesthetic plan and its attendant risks and benefits were discussed with the patient/family/POA. Questions were solicited and answers provided to the satisfaction of the patient/family/POA.
[2025-01-13] MEDS: ceFAZolin 2 GM in SODIUM CHLORIDE 0.9% IV 50 ML 100 ML IVPB ×3 (07:30→22:06)
[2025-01-13] MEDS: SODIUM CHLORIDE 0.9% IV 38.7 ML, ROPivacaine HCL 1% 200 MG, KETOROLAC INJ (*BKC) 15 MG,... INFILTRATE (08:13)
[2025-01-13] MEDS: TRANEXAMIC ACID 1,000 MG/10 ML AMPUL 1000 MG IV PUSH (11:05)
--- NOTE | 2025-01-13 11:11 | SUR.OPER ---
EBL 300
--- NOTE | 2025-01-13 12:02 | W.PM.PROC2 ---
Procedure Note - Detailed Date of Procedure 01/13/25 Pre-op Diagnosis lt knee o.a. Post-op Diagnosis Same Procedure Performed Left total knee replacement Surgeon Ran Hopson MD Gravel Machine Operator Mahad Anesthesia General Description of Procedure Patient was brought to the operating room and general anesthesia was administered. She received 2 g of Ancef weight based vancomycin 1 g of TXA preoperatively. The left leg was prepped draped usual fashion. Under anesthesia she had approximately a 7 degree flexion contracture and passively flexed to 95?. SCD was placed on the right leg and running during the procedure given her history of prior thromboembolic event. Patient's BMI was 34.8. Because of previous more severe obesity and weight loss through gastric bypass surgery for obesity was much more pronounced in the legs which added significant difficulty to the procedure. Also she was noted to have rather severe osteoporosis with the anterolateral tibial plateau for example having almost no cancellous bone structure. This had difficulty the procedure. A cemented 80 mm stemmed tibial component was used instead of the standard tibial component because of the osteoporosis when combined with the obesity to mitigate the risk of subsidence. These characteristics added approximately 1 hour total surgical time procedure. The limb was exsanguinated and tourniquet elevated to 300 mmHg. A 7 in longitudinal midline incision was used. The vastus medialis splitting approach utilized splitting the vastus medialis at the superomedial edge of the patella. Partial excision of infrapatellar fat pad was performed and quadriceps synovectomy carried out. The patella had deformity of articular surface due to intra-articular osteophyte pattern and did not seem ideal for non resurfacing. It measured 22.5 mm in thickness centrally where there was high-grade cartilage loss. The patella was cut to 15 mm and a protector cap applied. Next a guide david was inserted on femoral canal after aspiration of canal contents using the 5 degree valgus cutting bushing, 8 mm of bone removed the distal femur which removed 8 laterally about 7 medially. There was prominent wear of the distal aspect the medial femoral condyle. Next the tibial plateau was cut. We made a cut perpendicular to the axis of the tibia moving about 1 mm bone from the low point of the medial tibial plateau as a skim cut. Meniscal remnants were excised and the PCL was recessed from the femur. Flexion gap measured 6 mm medially and 10 mm laterally and therefore an additional 2 mm of bone was removed the tibial plateau. We noted that the anterolateral tibial plateau had extremely osteoporotic trabecular bone with trabecular deficiency with no mechanical strength in that area. Bone quality of the medial tibial plateau excellent. It was clear that a stemmed cemented component on the tibial side would be appropriate to minimize risk of subsidence. Flexion gap measured 8 medially and 12 laterally. The femoral sizing guide was applied in the distal femur set at 5? of external rotation which matched Whitesides line. Posterior referencing pinholes were placed. The size 62.5 looked like it might notch. We made the anterior cut with the 65 AP cutting block and I gave us confidence downsized the 62.5 which is the appropriate with. We put a degree or 2 of flexion on the distal femoral cut to avoid notching. The 62.5 AP cutting block was pinned in place. AP and chamfer cuts were made. The anterior cut was flush with the anterior cortex. The 62.5 trial fit line to line medial to lateral. The tibial plateau was sized to a 67 vanguard which fit line to line anteromedial to posterolateral a proper rotation. After proper alignment was confirmed with extramedullary guides the tibia was punched for the 80 mm cemented thin stem construct. We trialed with the 10 insert. At 90? of flexion there was 2 mm of play laterally with a Acosta elevator no play medially. In extension the knee had no play medially and tend to book open laterally couple of mm. It was about 2-3 mm of opening laterally to varus stress. The knee lacked 3 or 4? of extension had a positive bounce. We therefore elected to remove the medial and posteromedial tibial osteophyte which was quite prominent. This was done after carefully exposing the osteophyte from underlying capsule without releasing the capsule and the osteophyte removed with needle-nose rongeur and smoothed. At this time on read trialing the knee had a much better balance in flexion about 1.5 mm of medial opening and appropriate anterior drawer and the knee came out just to full extension but no medial play an with the arthrotomy approximated with towel clips the knee lacked full extension had a positive bounce. We assess the alignment the distal femoral cut and saw that it was at approximately 5.5? of anatomic valgus using the 5 degree wing on the intramedullary david and therefore we removed 1 mm of bone from the distal medial femoral condyle transitioning this to the lateral femoral condyle converting the alignment to about 4.5? anatomic axis valgus relative to the david. Chamfer cuts revisited. Posterior femoral osteophyte was checked for removed. We did not perform a formal posterior capsular release. On read trialing the knee came out to full extension with 1-1.5 mm of medial opening in extension and with the arthrotomy towel clipped the knee continued to have a negative bounce with a mm of medial opening. Lateral opening was 2 or 2.5 mm in extension appropriate anterior posterior stability in all positions. [place] flexion to 120 which seemed to be mostly limited by the soft tissue envelope of the proximal calf and distal thigh where she had prominent obesity. The patella was sized with 34 thin lug holes drilled composite thickness was 23 mm. Patellar tracking was central throughout range of motion on trialing. Lug holes were made for the femoral component. We had put the tourniquet down earlier at 90 minutes and at this point we re-exsanguinated the limb and elevated the tourniquet again to 300 mmHg. The bony surfaces were thoroughly irrigated and a step drill was used to make multiple perforations in the areas where the bone was not more dense. After irrigation and drying of the bone we applied 2 batches of methylmethacrylate 1 with gentamicin powder was applied and coated the assembled 67 Vanguard modular tray assembled to the 80 mm finned stem 10 mm diameter stem, and the size 62.5 left CR femoral component. Cement was applied the tibial plateau pressurized in the areas of cancellous bone deficiency and injected in the canal. The tibial component was fully seated. Cement applied the femur the femoral component fully seated the knee brought into extension with 11 mm 5 1 insert for pressurization in the 34 thin patella cemented without difficulty. Tourniquet was released at 105 minutes. After cement hardening excess cement was sought for removed and hemostasis was achieved. We trialed the 10 insert had the same findings as described above. The 10 insert was placed without difficulty locked with a locking pin range of motion stability patellar tracking reconfirmed. Local anesthetic cocktail injected in the periarticular soft tissues. She received 2 additional g of Ancef 1 g of TXA. Arthrotomy was closed with 2. Vicryl and 1. Unidirectional barbed Stratafix suture the split closed with 1. Vicryl. Skin was closed with 2 subcutaneous Vicryl 3-0 subcuticular Monocryl and glue. EBL 300 cc. There were no complications, s he was transferred postop recovery room in stable condition. [facility] Billing Surgery - Charge Forward: Surgery Billing (Left total knee replacement)
[2025-01-13] MEDS: fentaNYL CITRATE INJ (*CRX) 100 MCG/2 ML VIAL 25 MCG IV PUSH ×4 (12:21→13:05)
--- NOTE | 2025-01-13 14:18 | ADMGEN ---
This patient, Leah Andujar, was admitted to [facility] Surg Room 322-01. Patient/family oriented to hospital policies and general routines including ID bracelet, bed and alarms, visiting hours, pain management, procedures, bathroom and other care routines, personal items, smoking policy, room service/diet, and visiting hours. Information on how to activate the Rapid Response Team has been discussed. Patient/Family are encouraged to report perceived risks to care and to ask questions if they do not understand what they are told or what they should do.
[2025-01-13] MEDS: oxyCODONE HCL (*CRX) 2.5 MG TAB IR PO ×3 (15:03→20:38)
[2025-01-13] MEDS: SODIUM CHLORIDE 0.9% IV 1,000 ML 125 ML IV CONT (15:04)
--- NOTE | 2025-01-13 15:51 | P.CONIM_ITS ---
Assessment and Plan Assessment and plan (1) Primary osteoarthritis of left knee: Code(s): M17.12 - Unilateral primary osteoarthritis, left knee Status: Acute Assessment and Plan: Status post total left knee with orthopedics on 01/13/2025 Pain management by Orthopedics Postop antibiotics Eliquis (2) Hypertension: Code(s): I10 - Essential (primary) hypertension Status: Acute Assessment and Plan: Orthopedics holding hydrochlorothiazide Continue amlodipine (3) Anxiety: Code(s): F41.9 - Anxiety disorder, unspecified Status: Acute Assessment and Plan: Holding citalopram Continue Wellbutrin, and propanolol (4) Hypothyroidism: Code(s): E03.9 - Hypothyroidism, unspecified Status: Acute Assessment and Plan: Continue levothyroxine HPI Date of Consult Consult date: 01/13/25 Requesting Physician: Ran Hopson MD Primary Care Provider: Eric Clark, Consult Narrative Reason for consult: Medical management Narrative: Leah Andujar is a 79 year old female with past medical history pulmonary embolism, depression, anemia, hypertension osteoarthritis of the left knee presents the hospital for planned total left knee. Patient seen after OR. Patient states she is doing extremely well pain is controlled, no postop nausea or vomiting. She states that she is ready to go home. And loves her orthopedic surgeon. Review of Systems Review of Systems: 12 systems were reviewed and are negativ e except for as per HPI. PMF Past Medical History Medical History (Updated 01/13/25 @ 15:53 by Mikayla Mcclendon, [employer]) Anxiety Hx of pulmonary embolus Right lung History of small bowel obstruction Depression Anemia RLS (restless legs syndrome) Myelopathy Pulmonary embolism History of blood clots 2019 Hypertension Cataracts, both eyes Gallbladder & bile duct stone with obstruction Surgical History Surgical History (Updated 12/17/24 @ 10:05 by Sameera Wright CMA) History of gastric surgery outlet History of cataract extraction with lens replacement History of cholecystectomy 2002 H/O left wrist surgery fx fixation 11/2019 History of left hip replacement History of right hip replacement 12/2010 S/P gastroplasty 1985 H/O abdominal hysterectomy 1981 History of tonsillectomy 1967 Family History Family History Sibling Carcinoma of colon Social History Social History (Updated 12/17/24 @ 09:20 by Yvette Storey [facility]) Smoking packs per day: 1 Smoking cigarettes per day: 20.0 Years smoked: 1 Smoking pack-years: 1.00 Smoking status: Former smoker Alcohol intake: never Alcohol use details: very rarely Substance use: never Substance use type: does not use Lack of Transportation: No Lack of Food: Never True Current Housing: I Have Housing Concerned About Future Housing: No Difficulty Paying Gas/Electric Bills: No Difficulty Paying for Meds: No Currently Unemployed: No Education: High School Diploma/GED Difficulty w/ Childcare or Family Care: No Living arrangements: with family Additional living arrangements comments: [facility]USB Spiritual care concerns: No Meds Home Medications and Allergies Home Medications ?Medication ?Instructions ?Recorded ?Confirmed ?Type bupropion HCl 150 mg 24 hr tablet, 150 mg PO QAM 11/0101/13/25 History extended release amlodipine 2.5 mg tablet 2.5 mg PO DAILY 11/12/2303/29 History escitalopram oxalate 10 mg tablet 10 mg PO DAILY 11/1101/13/25 History levothyroxine 100 mcg tablet 100 mcg PO DAILY 11/12/23 01/13/25 History (Synthroid) omeprazole 20 mg capsule,delayed 20 mg PO BID 11/12/23 01/13/25 History release pramipexole 0.25 mg tablet 0.25 mg PO QHS 11/12/2303/29 History pregabalin 75 mg capsule 75 mg PO HS 11/12/23 5 History acetaminophen 650 mg 1,300 mg PO Q8H PRN pain 12/23/24 History tablet,extended release (8 Hour Pain Reliever) ascorbic acid (vitamin C) 500 mg 500 mg PO DAILY 08/0201/13/25 History capsule calcium carb-ergocalciferol (vit 1 tablet PO .PO 08/0201/13/25 History D2) 600 mg calcium-200 unit tablet cholecalciferol (vitamin D3) 50 2,000 unit PO DAILY 01/13/25 History mcg (2,000 unit) capsule collagen,hydrolysate 500 mg-biotin 1 cap PO DAILY 07/0501/13/25 History 800 mcg-ascorbic acid 50 mg capsule (Collagen 1500 Plus C) cranberry extract 250 mg tablet 2,500 mg PO BID 01/13/25 History cyanocobalamin (vitamin B-12) 2,000 mcg PO DAILY 08/0201/13/25 History 1,000 mcg capsule cyclosporine 0.05 % eye drops in a 1 drp EACH EYE Q12H 08/02/24 01/13/25 History dropperette (Restasis) propranolol 60 mg tablet 30 mg PO Q12H 08/02/2412/23 History pyridoxine (vitamin B6) 100 mg 100 mg PO DAILY 5 01/13/25 History tablet trazodone 100 mg tablet 150 mg PO HS 08/02/24 History turmeric 400 mg capsule 1,500 mg PO DAILY 08/02/24 0 01/13/25 History hydrochlorothiazide 12.5 mg tablet 12.5 mg PO DAILY 01/13/25 History meloxicam 7.5 mg tablet 7.5 mg PO DAILY 12/17/2403/29 History omega-3 fatty acids 1,000 mg 2,000 mg PO DAILY 5 01/13/25 History capsule tramadol 50 mg tablet 50 mg PO Q6H PRN pain 12/23/24 History Allergies Allergy/AdvReac Type Severity Reaction Status Date / Time codeine AdvReac Intermediate gastric Verified 01/13/25 14:26 distress lisinopril AdvReac Intermediate Itching Verified 01/13/25 14:26 Sulfa (Sulfonamide AdvReac Intermediate Gastrointestinal Verified 01/13/25 14:26 Antibiotics) Upset Vital Signs Vital Signs - 24 hr 01/13/25 06:43 01/13/25 11:58 01/13/25 12:10 Temperature 98.0 F 98.3 F Pulse Rate 55 L 68 71 Respiratory Rate 16 12 13 Blood Pressure 149/56 H 125/60 139/70 Pulse Oximetry 100 92 98 Oxygen Delivery Room Air Simple Face Mask Simple Face Mask Oxygen Flow Rate 10 10 01/13/25 12:25 01/13/25 12:38 01/13/25 12:40 Temperature Pulse Rate 65 62 Respiratory Rate 10 L 12 Blood Pressure 148/67 H 144/70 H Pulse Oximetry 100 100 92 Oxygen Delivery Simple Face Mask Room Air Nasal Cannula Oxygen Flow Rate 8 2 01/13/25 12:55 01/13/25 13:10 01/13/25 13:25 Temperature Pulse Rate 66 63 63 Respiratory Rate 15 14 14 Blood Pressure 137/61 152/73 H 106/92 H Pulse Oximetry 98 98 98 Oxygen Delivery Nasal Cannula Nasal Cannula Nasal Cannula Oxygen Flow Rate 2 2 2 01/13/25 13:40 01/13/25 13:55 Temperature Pulse Rate 62 63 Respiratory Rate 14 14 Blood Pressure 147/72 H 149/72 H Pulse Oximetry 99 99 Oxygen Delivery Nasal Cannula Nasal Cannula Oxygen Flow Rate 2 2 Exam Narrative: General: well appearing, appears stated age. HEENT: normocephalic, atraumatic. Mucous membranes moist. EOMI, PERRLA, bilateral sclera anicteric, no conjunctival injection. Neck supple without JVD, lymphadenopathy, or bruit. Respiratory: clear to ascultation bilaterally. No rales/rhonic/wheezes. Cardiovascular: Regular rate and rhythm, normal S1-S2 upon ascultation. No murmurs, rubs, or clicks. PMI is nondisplaced, capillary refill less than 3 second. Abdomen: Soft, round, no pulsatile masses, nondistended and nontender. No rebound, no guarding. No CVA tenderness, no hepatosplenomegaly. Bowel sounds present to all four quadrants. No high pitch or tinkling sounds, resonant to percussion. Extremities: No cyanosis, clubbing, or edema present. Pulses are palpable 2/2. Left lower extremity with limited range of motion and surgical dressing clean dry intact Neuro: Alert and orientated x 4. PERRLA. Cranial nerves 2-12 intact without focal deficit. Skin: Warm, dry, and intact, without rash, erythema, or lesion. Psych: pleasant, cooperative, normal speech, normal affect, no hallucinations, no dysarthia Quality VTE Prophylaxis VTE prophylaxis: mechanical ordered and pharmacologic ordered Hospitalist MIPS Advance Care Plan I have confirmed that the patient's Advanced Care Plan is present, code status is documented, or surrogate decision maker is listed in patient medical record.: Yes Medication Reconciliation I have utilized all available resources to obtain, update and review the patients current medications (includes all prescriptions, OTC, herbals, cannabis, and nutritional supplements).: Yes
[2025-01-13] MEDS: ACETAMINOPHEN 325 MG TABLET 650 MG PO ×2 (16:29→20:38)
[2025-01-13] MEDS: SENNA/DOCUSATE SODIUM TABLET 2 TAB PO (17:57)
[2025-01-13] MEDS: VANCOMYCIN HCL 750 MG in SODIUM CHLORIDE 0.9% IV 250 ML 250 MG IVPB (17:57)
[2025-01-13] MEDS: PREGABALIN (*CRX) 75 MG CAPSULE PO (20:38)
[2025-01-13] MEDS: PRAMIPEXOLE 0.25 MG TABLET PO (20:39)
[2025-01-13] MEDS: PANTOPRAZOLE 40 MG TABLET PO (20:47)
--- NOTE | 2025-01-13 22:54 | PC.NURSE ---
2254: called pharmacy to clarify pt's total of 2 vancomycin dose scheduled BID. Per MD communication, pt's GFR 45-50 and only 1 dose per 24 hrs. Per pharmacist, pt is getting only 2 doses and she should be ok to get those doses 12 hrs apart.
[2025-01-14] MEDS: oxyCODONE HCL (*CRX) 2.5 MG TAB IR PO (00:40)
[2025-01-14 03:44] LABS: Hematocrit 30.8 % (37.0-47.0); Hemoglobin 9.3 g/dL (12.0-15.0); Immature Granulocyte Percent A 0.4 % (0-0.5); Lymphocytes Absolute Auto 1.33 K/mm3 (0.9-3.2); Mean Corpuscular HGB Conc 30.2 g/dl (32-36); Mean Corpuscular Hemoglobin 31.6 pg (26-34); Mean Corpuscular Volume 104.8 fl (80-100); Nucleated Red Blood Cells Absolute Auto 0.000 K/mm3 (0.0-0.012); Nucleated Red Blood Cells Perc 0.0 % (0.0-0.2); Platelet Count Result 141 k/mm3 (150-375); Red Blood Count 2.94 M/mm3 (4.2-5.4); White Blood Count 9.3 K/mm3 (4.5-10.0)
[2025-01-14 03:58] VITALS: BP 133/50; PULSE 84; RESP 16; TEMP 36.4; O2SAT 96
[2025-01-14 04:02] LABS: Anion Gap 3 mmol/L (4-12); Blood Urea Nitrogen 18 mg/dL (7-17); Calcium 8.9 mg/dL (8.4-10.2); Carbon Dioxide 27 mmol/L (22-30); Chloride 107 mmol/L (98-107); Estimated Glomerular Filt Rate 57; Glucose 113 mg/dL (65-110); Potassium 4.2 mmol/L (3.4-5.0); Sodium 137 mmol/L (137-145)
[2025-01-14] MEDS: ACETAMINOPHEN 325 MG TABLET 650 MG PO ×2 (05:33→09:57)
[2025-01-14] MEDS: LEVOTHYROXINE SODIUM 100 MCG TABLET PO (05:33)
[2025-01-14] MEDS: VANCOMYCIN HCL 750 MG in SODIUM CHLORIDE 0.9% IV 250 ML 250 MG IVPB (05:34)
[2025-01-14] MEDS: ceFAZolin 2 GM in SODIUM CHLORIDE 0.9% IV 50 ML 100 ML IVPB (06:32)
[2025-01-14] MEDS: APIXABAN 2.5 MG TABLET PO (09:58)
[2025-01-14] MEDS: ASCORBIC ACID 500 MG TABLET PO (09:58)
[2025-01-14] MEDS: PYRIDOXINE HCL 50 MG TABLET 100 MG PO (09:58)
[2025-01-14] MEDS: buPROPion HCL XL (24 HR) 150 MG TABCR PO (09:58)
[2025-01-14] MEDS: SENNA/DOCUSATE SODIUM TABLET 2 TAB PO (09:59)
[2025-01-14] MEDS: PANTOPRAZOLE 40 MG TABLET PO (09:59)
[2025-01-14] MEDS: CYANOCOBALAMIN 1,000 MCG TABLET 2000 MCG PO (09:59)
[2025-01-14] MEDS: CHOLECALCIFEROL (VITAMIN D3) 25 MCG (1,000 UNITS) TABLET 50 MCG PO (09:59)
[2025-01-14 10:51] VITALS: O2SAT 98
--- NOTE | 2025-01-14 11:19 | P.PNIM_ITS ---
Progress Note: A&P Assessment and Plan (1) Primary osteoarthritis of left knee: Code(s): M17.12 - Unilateral primary osteoarthritis, left knee Status: Acute Assessment and Plan: Status post total left knee with orthopedics on 01/13/2025 Pain management by Orthopedics Postop antibiotics Eliquis 01/14/2025 Status post left knee surgery. Pain under control. Will continue physical therapy. (2) Hypertension: Code(s): I10 - Essential (primary) hypertension Status: Acute Assessment and Plan: Stable on current medication, will continue current treatment. (3) Anxiety: Code(s): F41.9 - Anxiety disorder, unspecified Status: Acute Assessment and Plan: Stable on current medication, will continue current treatment. Holding citalopram Continue Wellbutrin, and propanolol (4) Hypothyroidism: Code(s): E03.9 - Hypothyroidism, unspecified Status: Acute Assessment and Plan: Continue levothyroxine Subjective Date/time seen: 01/14/25 11:19 Interval history: Patient was seen during the morning rounds today. Pain under control. Patient is doing better. Getting physical therapy. No shortness with chest pain No abdominal pain, nausea no vomiting. Mood stable. Review of Systems Review of Systems: 12 systems were reviewed and are negativ e except for as per HPI. Exam 2 Narrative: General: well appearing, appears stated age. HEENT: normocephalic, atraumatic. Mucous membranes moist. EOMI, PERRLA, bilateral sclera anicteric, no conjunctival injection. Neck supple without JVD, lymphadenopathy, or bruit. Respiratory: clear to ascultation bilaterally. No rales/rhonic/wheezes. Cardiovascular: Regular rate and rhythm, normal S1-S2 upon ascultation. No murmurs, rubs, or clicks. PMI is nondisplaced, capillary refill less than 3 second. Abdomen: Soft, round, no pulsatile masses, nondistended and nontender. No rebound, no guarding. No CVA tenderness, no hepatosplenomegaly. Bowel sounds present to all four quadrants. No high pitch or tinkling sounds, resonant to percussion. Extremities: No cyanosis, clubbing, or edema present. Pulses are palpable 2/2. Left lower extremity with limited range of motion and surgical dressing clean dry intact Neuro: Alert and orientated x 4. PERRLA. Cranial nerves 2-12 intact without focal deficit. Skin: Warm, dry, and intact, without rash, erythema, or lesion. Psych: pleasant, cooperative, normal speech, normal affect, no hallucinations, no dysarthia Objective Data Vital Signs Vital Signs: Vital Signs - 24 hr 01/13/25 11:58 01/13/25 12:10 01/13/25 12:25 Temperature 36.8 C Pulse Rate 68 71 65 Respiratory Rate 12 13 10 L Blood Pressure 125/60 139/70 148/67 H Pulse Oximetry 92 98 100 Oxygen Delivery Simple Face Mask Simple Face Mask Simple Face Mask Oxygen Flow Rate 10 10 8 01/13/25 12:38 01/13/25 12:40 01/13/25 12:55 Temperature Pulse Rate 62 66 Respiratory Rate 12 15 Blood Pressure 144/70 H 137/61 Pulse Oximetry 100 92 98 Oxygen Delivery Room Air Nasal Cannula Nasal Cannula Oxygen Flow Rate 2 2 01/13/25 13:10 01/13/25 13:25 01/13/25 13:40 Temperature Pulse Rate 63 63 62 Respiratory Rate 14 14 14 Blood Pressure 152/73 H 106/92 H 147/72 H Pulse Oximetry 98 98 99 Oxygen Delivery Nasal Cannula Nasal Cannula Nasal Cannula Oxygen Flow Rate 2 2 2 01/13/25 13:55 01/13/25 14:30 01/13/25 14:45 Temperature 36.1 C L 36.0 C L Pulse Rate 63 65 66 Respiratory Rate 14 16 16 Blood Pressure 149/72 H 150/69 H 151/64 H Pulse Oximetry 99 100 98 Oxygen Delivery Nasal Cannula Oxygen Flow Rate 2 01/13/25 14:55 01/13/25 15:15 01/13/25 16:15 Temperature 36.1 C L 36.1 C L Pulse Rate 66 75 Respiratory Rate 16 16 Blood Pressure 126/49 L 126/72 Pulse Oximetry 97 98 Oxygen Delivery Room Air Oxygen Flow Rate 01/13/25 19:58 01/13/25 23:58 01/14/25 03:58 Temperature 36.4 C 36.4 C L 36.4 C L Pulse Rate 79 69 84 Respiratory Rate 20 20 16 Blood Pressure 134/57 L 109/60 133/50 L Pulse Oximetry 95 94 96 Oxygen Delivery Oxygen Flow Rate 01/14/25 10:51 Temperature Pulse Rate Respiratory Rate Blood Pressure Pulse Oximetry 98 Oxygen Delivery Room Air Oxygen Flow Rate Intake/Output Intake/Output: Intake & Output 01/11/25 01/12/25 01/13/25 01/14/25 23:59 23:59 23:59 23:59 Intake Total 1740 490 Output Total 100 Balance 1740 390 Meds/Results Medications: Active Medications Generic Name Dose Route Start Last Admin Trade Name Freq PRN Reason Stop Dose Admin Acetaminophen 650 mg 01/13/25 15:00 01/14/25 09:57 Acetaminophen 325 Mg Tablet PO 650 mg Q6H SIMEON Administration Amlodipine Besylate 2.5 mg 01/13/25 21:00 01/13/25 20:38 Amlodipine Besylate 2.5 Mg Tablet PO 2.5 mg HS SIMEON Administration Apixaban 2.5 mg 01/14/25 09:00 01/14/25 09:58 Apixaban 2.5 Mg Tablet PO 2.5 mg Q12HR SIMEON Administration Ascorbic Acid 500 mg 01/14/25 09:00 01/14/25 09:58 Ascorbic Acid 500 Mg Tablet PO 500 mg DAILY SIMEON Administration Bupropion HCl 150 mg 01/14/25 09:00 01/14/25 09:58 Bupropion Hcl Xl (24 Hr) 150 Mg Tabcr PO 150 mg QAM SIMEON Administration Cephalexin HCl 500 mg 01/14/25 19:00 Cephalexin 500 Mg Capsule PO Q8HR SIMEON Cyanocobalamin 2,000 mcg 01/14/25 09:00 01/14/25 09:59 Cyanocobalamin 1,000 Mcg Tablet PO 2,000 mcg DAILY SIMEON Administration Cyclosporine 1 drop 01/13/25 21:00 01/14/25 10:00 Cyclosporine 0.4 Ml Ophth Solution EACH EYE Not Given Q12HR [facility] Levothyroxine Sodium 100 mcg 01/14/25 06:30 01/14/25 05:33 Levothyroxine Sodium 100 Mcg Tablet PO 100 mcg DAILY@0630 SIMEON Administration Miscellaneous Information 0 each 01/13/25 00:01 Please Clarify Frequency For Calcium Carb/Vit D XX 02/12/25 00:00 CLARIFY SIMEON Miscellaneous Information 0 each 01/13/25 00:01 Propranolol 60mg [place] Is A Capsule And Cannot Be Broken In Half. Please Clarify If Immediate XX 02/12/25 00:00 CLARIFY SIMEON Morphine Sulfate 2 mg 01/13/25 14:13 Morphine Sulfate (*Crx) 2 Mg/Ml Inj IV PUSH Q1H PRN Pain Rated 7-10 Naloxone HCl 0.1 mg 01/13/25 14:13 Naloxone Hcl 0.4 Mg/Ml Vial IV PUSH Q2M PRN Opiate Reversal Non-Formulary Medication 1 tablet 01/13/25 14:13 Calcium Carbonate-Vitamin D2 PO 02/12/25 14:12 .PO SIMEON Ondansetron HCl 4 mg 01/13/25 14:13 Ondansetron Inj 4 Mg/2 Ml Vial IV PUSH Q4H PRN Nausea And Vomiting Oxycodone HCl 2.5 mg 01/13/25 14:13 01/14/25 09:59 Oxycodone Hcl (*Crx) 2.5 Mg Tab Ir PO Not Given Q4HR [facility] Oxycodone HCl 2.5 mg 01/13/25 14:13 Oxycodone Hcl (*Crx) 2.5 Mg Tab Ir PO Q4H PRN Pain Rated 4-10 Pantoprazole Sodium 40 mg 01/13/25 21:00 01/14/25 09:59 Pantoprazole 40 Mg Tablet PO 40 mg Q12HR SIMEON Administration Polyethylene Glycol 17 gm 01/14/25 09:00 01/14/25 10:01 Polyethylene Glycol 3350 17 Gm Powd.Pack PO 17 gm QAM SIMEON Administration Pramipexole Dihydrochloride 0.25 mg 01/13/25 21:00 01/13/25 20:39 Pramipexole 0.25 Mg Tablet PO 0.25 mg QHS SIMEON Administration Pregabalin 75 mg 01/13/25 21:00 01/13/25 20:38 Pregabalin (*Crx) 75 Mg Capsule PO 75 mg HS SIMEON Administration Propranolol HCl 30 mg 01/13/25 14:13 Propranolol Hcl 60 Mg Capsule Cr PO Q12H SIMEON Pyridoxine HCl 100 mg 01/14/25 09:00 01/14/25 09:58 Pyridoxine Hcl 50 Mg Tablet PO 02/13/25 08:59 100 mg DAILY SIMEON Administration Senna/Docusate Sodium 2 tab 01/13/25 17:00 01/14/25 09:59 Senna/Docusate Sodium Tablet PO 2 tab BID SIMEON Administration Trazodone HCl 150 mg 01/13/25 21:00 01/13/25 22:07 Trazodone Hcl 50 Mg Tablet PO 150 mg HS SIMEON Administration Vitamin D 50 mcg 01/14/25 09:55 01/14/25 09:59 Cholecalciferol (Vitamin D3) 25 Mcg (1,000 Units) Tablet PO 50 mcg DAILY SIMEON Administration Radiology Results: ITS Impressions Knee X-Ray 01/13/25 12:30 Impression: No acute fracture or malalignment. Labs Labs: Laboratory Results - last 24 hr 01/14/25 03:37 WBC 9.3 RBC 2.94 L Hgb 9.3 L Hct 30.8 L MCV 104.8 H MCH 31.6 MCHC 30.2 L RDW 12.2 Plt Count 141 L MPV 10.5 H Immature Gran % (Auto) 0.4 Neut % (Auto) 72.4 Lymph % (Auto) 14.3 L [place] % (Auto) 12.6 H Eos % (Auto) 0.0 Baso % (Auto) 0.3 Lymph # (Auto) 1.33 [place] # (Auto) 1.2 H Eos # (Auto) 0.0 Baso # (Auto) 0.0 Abs Immat Gran (auto) 0.04 H Absolute Neuts (auto) 6.7 Absolute Nucleated RBC 0.000 Nucleated RBC % 0.0 Sodium 137 Potassium 4.2 Chloride 107 Carbon Dioxide 27 Anion Gap 3 L BUN 18 H Creatinine 0.94 Estim Creat Clear Calc Not Reportable Estimated GFR 57 L Glucose 113 H Calcium 8.9 Quality VTE Prophylaxis VTE prophylaxis: mechanical ordered and pharmacologic ordered
--- NOTE | 2025-01-14 12:44 | PM.PNORT ---
Progress Note: A&P Assessment and Plan (1) Primary osteoarthritis of left knee: Code(s): M17.12 - Unilateral primary osteoarthritis, left knee Status: Acute (2) Status post left knee replacement: Code(s): Z96.652 - Presence of left artificial knee joint Status: Acute Assessment and Plan: Patient is postop day 1 after left total knee arthroplasty. She has done very well. She was up walking late yesterday full weight-bearing and with physical therapy this morning full weight-bearing with minimal discomfort. Earlier today she only took Tylenol for pain as that is all she needed. She did subsequently try the 2.5 mg oxycodone and did not have any nausea or intolerance to that. We are holding her meloxicam as she has stage 3 kidney disease. Her preop creatinine clearance was calculated at 32 and GFR 47. This morning her creatinine is improved to 0.94 minimal elevation of BUN at 18 and GFR improved to 57. We are planning to use Eliquis for 6 weeks postop because of her history of DVT and pulmonary embolism in the past and she is certainly at higher risk for that complication following knee replacement and she has chronically enlarged legs due to obesity and edema to some degree which puts her at greater risk for having a DVT and not having it diagnosed quickly. She has a history of a gastric bypass in the past and with a combination of use of Eliquis I feel the risk of GI bleeding is also too great with use of meloxicam or other anti-inflammatory medication for postoperative pain control so we will avoid these medications. Her wound has intact Mepilex with no blood visible on the dressing. She has no swelling in the left foot ankle calf relative to the right side. Minimal swelling around the knee. She is able do a straight leg raise without difficulty and wiggles her toes up and down. She is in good spirits and pleased with her minimal pain. 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 She does take calcium and vitamin-D chronically. She has never been formally diagnosed with osteoporosis and I would like to obtain a bone density at some point in the next month focusing on the lumbar spine and forearm as she has had bilateral hip replacements. She will remind us that she needs that test we see her in the office. Patient feels quite confident she will do fine at home like to go home today with her . I stressed with her the importance of avoiding sitting and resting in the chair which may cause excessive swelling and when she is not doing her chair stretch exercises she will be resting with her back flat on couch or bed and leg elevated well above her heart. Her hemoglobin this morning is 9.3. This represents acute blood loss anemia superimposed on chronic anemia. Her preop hemoglobin was only 10.1 and she is likely more hydrated now so there is likely a hemodilution affect which is very probably the reason for her improved kidney function tests. We have held her hydrochlorothiazide. She does not have low-sodium today fortunately. Her blood pressure is fine 130/50 and since she has relative anemia I suspect it will remain low the next few days we will keep it on hold for a few days and resume this 5 days from today to avoid hypotension. I will see her back in 2 weeks in the office to assess her progress. Subjective Subjective Date/Time Seen: 01/14/25 12:44 Objective Data Vital Signs Vital Signs: Vital Signs - 24 hr 01/13/25 12:55 01/13/25 13:10 01/13/25 13:25 Temperature Pulse Rate 66 63 63 Respiratory Rate 15 14 14 Blood Pressure 137/61 152/73 H 106/92 H Pulse Oximetry 98 98 98 Oxygen Delivery Nasal Cannula Nasal Cannula Nasal Cannula Oxygen Flow Rate 2 2 2 01/13/25 13:40 01/13/25 13:55 01/13/25 14:30 Temperature 36.1 C L Pulse Rate 62 63 65 Respiratory Rate 14 14 16 Blood Pressure 147/72 H 149/72 H 150/69 H Pulse Oximetry 99 99 100 Oxygen Delivery Nasal Cannula Nasal Cannula Oxygen Flow Rate 2 2 01/13/25 14:45 01/13/25 14:55 01/13/25 15:15 Temperature 36.0 C L 36.1 C L Pulse Rate 66 66 Respiratory Rate 16 16 Blood Pressure 151/64 H 126/49 L Pulse Oximetry 98 97 Oxygen Delivery Room Air Oxygen Flow Rate 01/13/25 16:15 01/13/25 19:58 01/13/25 23:58 Temperature 36.1 C L 36.4 C 36.4 C L Pulse Rate 75 79 69 Respiratory Rate 16 20 20 Blood Pressure 126/72 134/57 L 109/60 Pulse Oximetry 98 95 94 Oxygen Delivery Oxygen Flow Rate 01/14/25 03:58 01/14/25 10:51 Temperature 36.4 C L Pulse Rate 84 Respiratory Rate 16 Blood Pressure 133/50 L Pulse Oximetry 96 98 Oxygen Delivery Room Air Oxygen Flow Rate Intake/Output Intake/Output: Intake & Output 01/11/25 01/12/25 01/13/25 01/14/25 23:59 23:59 23:59 23:59 Intake Total 1740 490 Output Total 100 Balance 1740 390 Meds/Results Medications: Active Medications Generic Name Dose Route Start Last Admin Trade Name Armaniq PRN Reason Stop Dose Admin Acetaminophen 650 mg 01/13/25 15:00 01/14/25 09:57 Acetaminophen 325 Mg Tablet PO 650 mg Q6H SIMEON Administration Amlodipine Besylate 2.5 mg 01/13/25 21:00 01/13/25 20:38 Amlodipine Besylate 2.5 Mg Tablet PO 2.5 mg HS SIMEON Administration Apixaban 2.5 mg 01/14/25 09:00 01/14/25 09:58 Apixaban 2.5 Mg Tablet PO 2.5 mg Q12HR SIMEON Administration Ascorbic Acid 500 mg 01/14/25 09:00 01/14/25 09:58 Ascorbic Acid 500 Mg Tablet PO 500 mg DAILY SIMEON Administration Bupropion HCl 150 mg 01/14/25 09:00 01/14/25 09:58 Bupropion Hcl Xl (24 Hr) 150 Mg Tabcr PO 150 mg QAM SIMEON Administration Cephalexin HCl 500 mg 01/14/25 19:00 Cephalexin 500 Mg Capsule PO Q8HR SIMEON Cyanocobalamin 2,000 mcg 01/14/25 09:00 01/14/25 09:59 Cyanocobalamin 1,000 Mcg Tablet PO 2,000 mcg DAILY SIMEON Administration Cyclosporine 1 drop 01/13/25 21:00 01/14/25 10:00 Cyclosporine 0.4 Ml Ophth Solution EACH EYE Not Given Q12HR [facility] Levothyroxine Sodium 100 mcg 01/14/25 06:30 01/14/25 05:33 Levothyroxine Sodium 100 Mcg Tablet PO 100 mcg DAILY@0630 SIMEON Administration Miscellaneous Information 0 each 01/13/25 00:01 Please Clarify Frequency For Calcium Carb/Vit D XX 02/12/25 00:00 CLARIFY SIMEON Miscellaneous Information 0 each 01/13/25 00:01 Propranolol 60mg La Is A Capsule And Cannot Be Broken In Half. Please Clarify If Immediate XX 02/12/25 00:00 CLARIFY [facility] Morphine Sulfate 2 mg 01/13/25 14:13 Morphine Sulfate (*Crx) 2 Mg/Ml Inj IV PUSH Q1H PRN Pain Rated 7-10 Naloxone HCl 0.1 mg 01/13/25 14:13 Naloxone Hcl 0.4 Mg/Ml Vial IV PUSH Q2M PRN Opiate Reversal Non-Formulary Medication 1 tablet 01/13/25 14:13 Calcium Carbonate-Vitamin D2 PO 02/12/25 14:12 .PO SIMEON Ondansetron HCl 4 mg 01/13/25 14:13 Ondansetron Inj 4 Mg/2 Ml Vial IV PUSH Q4H PRN Nausea And Vomiting Oxycodone HCl 2.5 mg 01/13/25 14:13 01/14/25 09:59 Oxycodone Hcl (*Crx) 2.5 Mg Tab Ir PO Not Given Q4HR [facility] Oxycodone HCl 2.5 mg 01/13/25 14:13 Oxycodone Hcl (*Crx) 2.5 Mg Tab Ir PO Q4H PRN Pain Rated 4-10 Pantoprazole Sodium 40 mg 01/13/25 21:00 01/14/25 09:59 Pantoprazole 40 Mg Tablet PO 40 mg Q12HR SIMEON Administration Polyethylene Glycol 17 gm 01/14/25 09:00 01/14/25 10:01 Polyethylene Glycol 3350 17 Gm Powd.Pack PO 17 gm QAM SIMEON Administration Pramipexole Dihydrochloride 0.25 mg 01/13/25 21:00 01/13/25 20:39 Pramipexole 0.25 Mg Tablet PO 0.25 mg QHS SIMEON Administration Pregabalin 75 mg 01/13/25 21:00 01/13/25 20:38 Pregabalin (*Crx) 75 Mg Capsule PO 75 mg HS SIMEON Administration Propranolol HCl 30 mg 01/13/25 14:13 Propranolol Hcl 60 Mg Capsule Cr PO Q12H SIMEON Pyridoxine HCl 100 mg 01/14/25 09:00 01/14/25 09:58 Pyridoxine Hcl 50 Mg Tablet PO 02/13/25 08:59 100 mg DAILY SIMEON Administration Senna/Docusate Sodium 2 tab 01/13/25 17:00 01/14/25 09:59 Senna/Docusate Sodium Tablet PO 2 tab BID SIMEON Administration Trazodone HCl 150 mg 01/13/25 21:00 01/13/25 22:07 Trazodone Hcl 50 Mg Tablet PO 150 mg HS SIMEON Administration Vitamin D 50 mcg 01/14/25 09:55 01/14/25 09:59 Cholecalciferol (Vitamin D3) 25 Mcg (1,000 Units) Tablet PO 50 mcg DAILY SIMEON Administration Radiology Results: ITS Impressions Knee X-Ray 01/13/25 12:30 Impression: No acute fracture or malalignment. Labs Labs: Laboratory Results - last 24 hr 01/14/25 03:37 WBC 9.3 RBC 2.94 L Hgb 9.3 L Hct 30.8 L MCV 104.8 H MCH 31.6 MCHC 30.2 L RDW 12.2 Plt Count 141 L MPV 10.5 H Immature Gran % (Auto) 0.4 Neut % (Auto) 72.4 Lymph % (Auto) 14.3 L Noble % (Auto) 12.6 H Eos % (Auto) 0.0 Baso % (Auto) 0.3 Lymph # (Auto) 1.33 Noble # (Auto) 1.2 H Eos # (Auto) 0.0 Baso # (Auto) 0.0 Abs Immat Gran (auto) 0.04 H Absolute Neuts (auto) 6.7 Absolute Nucleated RBC 0.000 Nucleated RBC % 0.0 Sodium 137 Potassium 4.2 Chloride 107 Carbon Dioxide 27 Anion Gap 3 L BUN 18 H Creatinine 0.94 Estim Creat Clear Calc Not Reportable Estimated GFR 57 L Glucose 113 H Calcium 8.9
== END 2025-01-14 15:05 | disposition home or self-care (01) ==
LOC: ANHSURGERY 05:52 → ANH3MEDSUR 14:15
PROVIDERS: PCP Family Medicine; Visit Provider Orthopaedic Surgery
PROC: (CPT 27447; principal; 2025-01-13 07:30)
DX: M17.12 Unilateral primary osteoarthritis, left knee (principal); M25.762 Osteophyte, left knee; M81.0 Age-related osteoporosis without current pathological fracture; I10 Essential (primary) hypertension; D64.9 Anemia, unspecified; E03.9 Hypothyroidism, unspecified; G25.81 Restless legs syndrome; F32.A Depression, unspecified; F41.9 Anxiety disorder, unspecified; G95.9 Disease of spinal cord, unspecified; Z79.891 Long term (current) use of opiate analgesic; Z98.890 Other specified postprocedural states; Z98.84 Bariatric surgery status; Z90.49 Acquired absence of other specified parts of digestive tract; Z96.643 Presence of artificial hip joint, bilateral; Z87.891 Personal history of nicotine dependence; Z86.711 Personal history of pulmonary embolism; Z87.19 Personal history of other diseases of the digestive system; Z80.0 Family history of malignant neoplasm of digestive organs
CPT/HCPCS: 27447; 36415; 73560; 80048; 85025; 86850; 86900; 86901; 97110; 97116; 97161; 97165; 97530; 97535; J0690; A9270; C1713; C1776; J0166; J1100; J1171; J1885; J2003; J2405; J2704; J2795; J3010; J3373; J7030; J7050; J7120

== ENCOUNTER 2025-03-21 14:30 | Outpatient (RCR) | payer MEDICARE, BC, SELFPAY ==
--- NOTE | 2025-01-17 11:13 | PTOPEVAL1 ---
Assessment and note entered by Devika Benitez, PT Evaluation Information Assessment Status Evaluation Diagnosis Unilat primary OA, L knee M17.2, L artificial knee joint Z96.652 ICD-10 Condition Codes (PT) Pain in left knee M25.562,Encounter for other orthopedic aftercare Z47.89,Aftercare following joint replacement surgery Z47.1 Onset 01/13/2025 Subjective Information Pt states had a fairly good weekend at home. Entrances into home did ok, just not gong down to basement yet. Bedroom is on the first floor. Pt states she isn't doing her exercises as she should, only getting 3x daily. Pt PLOF without AD, wants to be able to walk without AD. Pt states she is walking around her house most of the time without AD. Reported Pain Level Pain Score 6: Self Report Assessment PT Clinical Summary Pt presents s/p L TKR 01/13/2025. Appropriate swelling and bruising noted, no drainage on dressing, no signs of infection, but dressing appears to be moist on the inside as if did not seal completely with shower this morning. Pt advised to call Ortho to confirm changing dressing and acquisition of new dressing. Pt demonstrates decreased passive ROM 5-75 degrees, and reports she has only performed her hourly stretches 3x daily in the last two days. She was educated this would not be enough and she needed to perform her exercises as directed. After chair stretches in clinic she increased her flexion to 90 degrees. She was also encouraged initially to use her AD for a short time to prevent inflammation and increased pain though would progress quickly from AD for ambulation. Pt demonstrates decreased quad strength in open chain terminal knee extension as is expected. Pt will benefit from physical therapy to assist in encouraging patient to be compliant with Ortho plan, improve ROM, strength, swelling, and improve overall pain and function. Plan of Care Interventions Electrical Stimulation,Gait Training,Intermittent Compression Pump,Manual Therapy,Neuro Re-education ,Patient/Caregiver Education,Therapeutic Activities,Therapeutic Exercise,Self-Care/Home Management,Other Other Interventions Taping PT Services Indicated Yes Treatment Frequency and 2-3x weekly x 20 visits Duration These treatments will address the objective and functional deficits as defined above. The patient will be advanced safely and appropriately in order for the patient to progress towards his/her prior level of function. Additional exercises will be introduced and as well as a comprehensive home exercise program upon discharge, if needed, ?to ensure carryover of functional gains achieved in the clinic. This treatment plan has been reviewed and agreement upon by the patient.
--- NOTE | 2025-01-17 11:13 | OPREHPOC ---
Outpatient Therapy Plan of Care This is a Multidisciplinary Plan of Care that may contain components documented by all disciplines (PT, OT, and ST.) PT Problem 1 PT Problem #1 Knowledge Deficit PT Goal 1 Goal / Goal Update Pt will be independent in HEP Pt will verbalize understanding of diagnosis and prognosis PT Problem 2 PT Problem #2 Impaired Range of Motion PT Goal 1 Goal / Goal Update Pt will report consistently doing her 5 minutes of stretches every waking hour Pt will show active ROM 5-100 left knee Target Visit 10 PT Goal 2 Goal / Goal Update Pt will demonstrate passive ROM 0-120 left knee for functional use with stairs Target Visit 20 PT Problem 3 PT Problem #3 Pain PT Goal 1 Goal / Goal Update Pt will report lowest pain rating at 0/10 to show improvement in overall discomfort Target Visit 10 PT Goal 2 Goal / Goal Update Pt will report greatest pain level at 3/10 or less to improve ADLs and activities Target Visit 20 PT Problem 4 PT Problem #4 Impaired Strength PT Goal 1 Goal / Goal Update Pt will demonstrate 3/5 quads strength for improved functional mobility Target Visit 10 PT Goal 2 Goal / Goal Update Pt will demonstrate 4/5 quads strength for improved functional mobility Target Visit 20
--- NOTE | 2025-02-01 13:26 | PCPTNOTE ---
Pt called to cx scheduled physical therapy appointment this date with no reason given.
--- NOTE | 2025-02-11 12:08 | PCPTNOTE ---
Pt called to cx scheduled physical therapy appointment this date due to being sick.
--- NOTE | 2025-02-16 11:15 | PTOPPROG ---
Assessment and note entered by Devika Benitez, PT Evaluation Information Assessment Status Progress Diagnosis Unilat primary OA, L knee M17.2, L artificial knee joint Z96.652 ICD-10 Condition Codes (PT) Pain in left knee M25.562,Encounter for other orthopedic aftercare Z47.89,Aftercare following joint replacement surgery Z47.1 Onset 01/13/2025 Subjective Information Pt reports tried to advance to the cane yesterday but tried to go cold turkey and her knee started hurting so went back to the cane. Pain is ok, stays between 4-5/10 most of the day other than when she takes her oxcycodone every 4 hours, half a tablet for a total of 2 tablets and her Tylenol every 4 hours with this. Tries to do her exercises in the morning before therapy but today slept in and hasn't gotten to yet today. Ortho follow up has range of 0-125 Assessment PT Clinical Summary Pt demonstrates appropriate chair flexion stretches x 3 with only cueing x 1 for scooting slightly more forward with lift-off. Pt demonstrates improved ROM and strength overall. Her measurements today are slightly less than her PA follow-up though she is reportedly stiff this morning. She has been educated today also in appropriate height of her cane, pattern of use, and to increase time with cane slowly progressing as tolerated to prevent flare ups in pain. She reported today she is taking a half a tablet of oxycodone 4x daily along with her Tylenol. We discussed phasing oxycodone in the next few weeks as well pending her tolerance and physician's preference. Pt will benefit from continued physical therapy to progress strengthening, continue ROM, and progress ambulation for more independent functioning. Plan of Care Interventions Electrical Stimulation,Gait Training,Intermittent Compression Pump,Manual Therapy,Neuro Re-education ,Patient/Caregiver Education,Therapeutic Activities,Therapeutic Exercise,Self-Care/Home Management,Other Other Interventions Taping PT Services Indicated Yes Treatment Frequency and 2x weekly x 10 visits Duration These treatments will address the objective and functional deficits as defined above. The patient will be advanced safely and appropriately in order for the patient to progress towards his/her prior level of function. Additional exercises will be introduced and as well as a comprehensive home exercise program upon discharge, if needed, ?to ensure carryover of functional gains achieved in the clinic. This treatment plan has been reviewed and agreement upon by the patient.
--- NOTE | 2025-03-21 15:38 | PTOPPROG ---
Assessment and note entered by Devika Benitez, PT Evaluation Information Assessment Status Progress Diagnosis Unilat primary OA, L knee M17.2, L artificial knee joint Z96.652 ICD-10 Condition Codes (PT) Pain in left knee M25.562,Encounter for other orthopedic aftercare Z47.89,Aftercare following joint replacement surgery Z47.1 Onset 01/13/2025 Subjective Information Feels her knee is doing good Reports did her exercises and was at the grocery sore this morning so is a little sore Reports she is taking Tramadol but was prior medication for arthritis, uses 2x daily. Reports usually is less than this but has been using it instead of the oxycodone. Pt walks without her cane mostly. Took it with her today walking in the parking lot, usually long distances in public but otherwise doesn't need it. Pt reports getting into her bathtub is still difficult, but has two grab bars. Lifting her operative leg up high to get into tub is difficult . Pt states is still doing her exercises every hour Returns to MD 03/25/25 Assessment PT Clinical Summary Pt has attended therapy consistently for her left total knee replacement 01/13/2025. Though she has had significant reduction in pain, she reports today in recent weeks her pain ranges from 3-5/10 without reaching 0/10. She is currently taking Tramadol 2x daily and no longer taking oxycodone. She also continues to show slightly decreased ROM in flexion with ROM 0-115 measured today in sitting, however she appears highly functional at this point. Pt reports feeling wobbly with ambulation without cane, advised today to continue with cane especially for long distances and in outdoor setting. Pt has however met her goals for strength, and also shows greatly improved swelling being very close to her non-operative limb. Pt could benefit from continued high level gait an balance work, will await MD assessment to continue therapy with new balance/gait goals. Plan of Care Interventions Electrical Stimulation,Gait Training,Intermittent Compression Pump,Manual Therapy,Neuro Re-education ,Patient/Caregiver Education,Therapeutic Activities,Therapeutic Exercise,Self-Care/Home Management,Other Other Interventions Taping PT Services Indicated Yes Treatment Frequency and 2x weekly x10 visits Duration These treatments will address the objective and functional deficits as defined above. The patient will be advanced safely and appropriately in order for the patient to progress towards his/her prior level of function. Additional exercises will be introduced and as well as a comprehensive home exercise program upon discharge, if needed, ?to ensure carryover of functional gains achieved in the clinic. This treatment plan has been reviewed and agreement upon by the patient.
--- NOTE | 2025-04-01 15:59 | PTOPDC ---
Assessment and note entered by Devika Benitez, PT Evaluation Information Assessment Status Discharge - Pt Not Present Diagnosis Unilat primary OA, L knee M17.2, L artificial knee joint Z96.652 ICD-10 Condition Codes (PT) Pain in left knee M25.562,Encounter for other orthopedic aftercare Z47.89,Aftercare following joint replacement surgery Z47.1 Onset 01/13/2025 Subjective Information Feels her knee is doing good Reports did her exercises and was at the grocery sore this morning so is a little sore Reports she is taking Tramadol but was prior medication for arthritis, uses 2x daily. Reports usually is less than this but has been using it instead of the oxycodone. Pt walks without her cane mostly. Took it with her today walking in the parking lot, usually long distances in public but otherwise doesn't need it. Pt reports getting into her bathtub is still difficult, but has two grab bars. Lifting her operative leg up high to get into tub is difficult . Pt states is still doing her exercises every hour Returns to MD 03/25/25 Assessment PT Clinical Summary Pt called and stated she has been release from ortho and her needs have been met. Thus we are discharging her from her current plan of care. Plan of Care PT Services Indicated No
== END 2025-04-01 16:11 | disposition home or self-care (01) ==
LOC: ANHHIPT 14:30
PROVIDERS: PCP Family Medicine; Visit Provider Orthopaedic Surgery
DX: Z47.1 Aftercare following joint replacement surgery (principal); M17.12 Unilateral primary osteoarthritis, left knee; Z96.652 Presence of left artificial knee joint
CPT/HCPCS: 97014; 97110; 97116; 97140; 97530; 97750; G0283